=== PATIENT | male | born 1975 | race Caucasian/White ===

== ENCOUNTER → 2017-11-24 13:53 | Outpatient (CLI) | payer MEDICARE, MEDICAID, SELFPAY ==
--- NOTE | 2017-11-24 13:57 | EKG12_ITS ---
Test Reason : CP Blood Pressure : / mmHG Vent. Rate : 093 BPM Atrial Rate : 093 BPM P-R Int : 130 ms QRS Dur : 088 ms QT Int : 376 ms P-R-T Axes : 043 011 016 degrees QTc Int : 467 ms Normal sinus rhythm Normal ECG Confirmed by KATHERINE DARDEN, MATT ([id number]), magazine editor SEBASTIÁN CARRASCO ([id number]) on 12/02/2017 3:21:26 PM Referred By: Brian Rapp Confirmed By:MATT MURPHY MD
--- NOTE | 2017-11-24 13:57 | RAD_ITS ---
STUDY: X-RAY CHEST REASON FOR EXAM: Male, 42 years old. Cough. TECHNIQUE: PA and lateral views of the chest. COMPARISON: None. FINDINGS: The lungs are clear and expanded. There is no demonstrated pleural abnormality. Normal size heart. Normal mediastinum and buck. Normal visualized pulmonary arteries. There is atherosclerotic calcification of the aortic arch with tortuosity. Normal visualized thoracic spine. Normal visualized ribs, clavicles, and shoulders. There is no demonstrated abnormality of the visualized soft tissue structures of the upper abdomen. RAD/Chest PA and Lateral IMPRESSION: No acute cardiopulmonary disease. Electronically Signed: Ethan Wang DO at 16:23 EDT Tel [phone], Service support ,
== END ==
PROVIDERS: Family Provider Internal Medicine; PCP Internal Medicine; Visit Provider Nurse Practitioner Family
DX: R07.9 Chest pain, unspecified (principal); R05 Cough
CPT/HCPCS: 71046; 93005

== ENCOUNTER → 2018-07-20 11:01 | Outpatient (CLI) | payer MEDICARE, SELFPAY ==
[2018-07-20 11:23] VITALS: BMI 41.9
--- OUTSIDE RECORDS SUMMARY | 2018-09-25 06:57 | XMS RPT_ITS ---
:1975 Author Organization OHIP Care Team Providers Name Role Phone Mirella Rapp ENGINE DYNAMOMETER TESTER-C Attending Unavailable Oleghe, Efewongbe Referring Unavailable Rapp, Mirella ENGINE DYNAMOMETER TESTER-C Attending Unavailable Rapp, Mirella ENGINE DYNAMOMETER TESTER-C Referring Unavailable Oleghe, Efewongbe Primary Care Unavailable Oleghe, Efewongbe Attending Unavailable Oleghe, Efewongbe Referring Unavailable RappMirella ENGINE DYNAMOMETER TESTER-C Attending Unavailable Oleghe, Efewongbe Referring Unavailable Rapp, Mirella ENGINE DYNAMOMETER TESTER-C Attending Unavailable Oleghe, Efewongbe Referring Unavailable Rapp, Mirella ENGINE DYNAMOMETER TESTER-C Attending Unavailable Oleghe, Efewongbe Referring Unavailable Rapp, Mirella ENGINE DYNAMOMETER TESTER-C Attending Unavailable Rapp, Mirella ENGINE DYNAMOMETER TESTER-C Referring Unavailable Oleghe, Efewongbe Primary Care Unavailable Mirella Rapp ENGINE DYNAMOMETER TESTER-C Attending Unavailable Oleghe, Efewongbe Referring Unavailable Oleghe, Efewongbe Primary Care Unavailable Ignacio Murphy Attending Unavailable RappMirella beavers ENGINE DYNAMOMETER TESTER-C Referring Unavailable Sydney Loo Attending Unavailable Sydney Loo Referring Unavailable Annita Zheng Attending Unavailable PROBLEMS PROBLEMS DATE TYPE CONDITION / CODE ATTENDING STATUS SOURCE 07/20/2018 Unknown I10 - Essential Mirella Rapp Active [place] (primary) hypertension ENGINE DYNAMOMETER TESTER-C Community / I10(ICD-10) Hospital Repository 07/21/2018 Unknown J02.9 - Acute Rapp, Mirella Active [place] pharyngitis, ENGINE DYNAMOMETER TESTER-C Community unspecified / Hospital J02.9(ICD-10) Repository 02/15/2018 Unknown R07.9 - Chest pain, [place], Active [place] unspecified / Ignacio Community R07.9(ICD-10) Hospital Repository 11/24/2017 Unknown R05 - Cough / Rapp, Mirella Active [place] R05(ICD-10) [facility] 10/28/2017 Unknown K92.2 - Oleghe, Active [place] Gastrointestinal Efewongbe [facility] hemorrhage, Hospital unspecified / Repository K92.2(ICD-10) PROCEDURES PROCEDURES No Procedure Records FoundRESULTS RESULTS Observed: 07/21/2018 Status: F Source: [place] CULTURE, THROAT 11:16 AM [facility] HOSPITAL REPOSITORY Culture, Throat RESULTS CALLED TO MIRELLA RAPP/KATHI 07/26/18 0845 Aimee Hernandez. Copy of report sent to Infection Control Printer [id number] 07/26/18 0846 AYDEENNCATY. ORGANISM 1: Meth. resistant Staph. aureus Amount Growth 3+ Meth. resistant Staph. aureus: REACTION Cefoxitin *NF POS Doxycline <=0.5 S Daptomycin $$ 0.25 S Clindamycin $$ 0.25 S Inducable Clindamycin Resistan NEG Erythromycin $ >=8 R Gentamicin $ <=0.5 S Levofloxacin $ 0.25 S Linezolid $$$$ 2 S Moxifloxicin *NF <=0.25 S Oxacillin NF >=4 R Tigecycline $$$$ <=0.12 S Rifampin $$ <=0.5 S Tetracycline NF <=1 S Trimethoprim/Sulfametho $ <=10 S Vancomycin $ <=0.5 S (NF) indicates non-formulary drug at [facility]. Approval by Infectious Disease Specialist required before non-formulary drugs may be ordered and/or dispensed. * CLSI guidelines does not recommend testing of cephalosporins. This interpretation is deduced from Beta-lactam/penicillin results. Performed By: #### M100.1000 #### [facility] [address] [place], [address] INTERNAL MEDICINE Observed: 07/20/2018 Status: F Source: [place] OFFICE VISIT 2:42 PM [facility] REPOSITORY [facility] [address] [place] [address] [place] [address] OFFICE VISIT Date of Service: 07/20/18 MR#: [id number] Acct: [id number] Name: PHILOMENA CABRAL Rep #: [id number] : 1975 Provider: Mirella Rapp NP Age/Sex: 43/M Location: [facility] Status: Signed Intake Vital Signs07/20/18 Body Mass Index (BMI) 41.9 07/20/18 Height 5 ft 9 in 07/20/18 Weight: 267 lb 07/20/18 Body Mass Index (BMI) 39.4 07/20/18 Blood Pressure 154/113 H Intake Visit Reasons: sore throat Chief Complaint: Sore throat x 3 weeks Is patient in pain?: Yes (Sore throat) Pain scale (1-10): 5 Allergies No Known Allergies Allergy (Unverified 07/20/18 11:21) Medications lisinopril 40 mg tablet 40 mg PO QDAY #90 tab 06/25/18 [Rx Confirmed 07/20/18] omeprazole 40 mg capsule,delayed release 40 mg PO BID #60 cap 06/25/18 [Rx Confirmed 07/20/18] hydrochlorothiazide 25 mg tablet 25 mg PO DAILY #30 tab 07/20/18 [Rx Confirmed 07/20/18] lidocaine 2 % mucosal solution 15 ml MUCOUS MEMBRANE BID-QID PRN #100 ml 07/20/18 [Rx Confirmed 07/20/18] PFS Medical History GERD (gastroesophageal reflux disease) (Chronic) Anxiety (Chronic) Hypertension (Chronic) Surgical History History of shoulder surgery (Acute) History of umbilical hernia repair (Acute) History of vasectomy (Acute) Family History Mother Hypertension Grandfather Cancer Social History Smoking Status: Never smoker alcohol intake: current alcohol intake frequency: holidays/special occasions only substance use type: does not use what type of physical activity do you participate in: weight training frequency: 1-2 times per week HPI HPI Chief Complaint: Sore throat x 3 weeks Details: PHILOMENA CABRAL, is a 43 M who presents to the office today for an acute visit of sore throat times 3 weeks. He has a past medical history as listed above. The patient states that his sore throat has been going on for 3 weeks now and has been persisting. He went to an urgent care approximately 2 weeks ago and had a rapid strep test done which was negative. He has not tried any wazf-bnd-btjpyhb treatments at this time. He denies any obvious sick contacts and denies any other aggravating or relieving symptoms. He does note that he discontinued his hydrochlorothiazide as he ran out of the medication and that is why his blood pressure is elevated office today at 154/113. He denies any signs and symptoms of hypertension. The patient otherwise denies any fever, chills, nausea, vomiting, shortness of breath, chest pain or pressure, palpitations, orthopnea, lower extremity edema, syncope or presyncopal episodes. ROS Const Constitutional: No chills, fatigue, fever(s), frequent falls, malaise, weakness, sleep problems or change in appetite Eyes Eyes: No blurry vision, change in vision, double vision, discharge or visual disturbances ENT ENT: Positive for sore throat (x 3 weeks), difficulty swallowing, post nasal drip and hoarseness; no abnormal hearing, ear pain, ear pressure, tinnitus or dizziness/vertigo Resp Respiratory: Positive for cough (green) Cough: Yes productive; no shortness of breath or wheezing Cardio Cardiology: No chest pain at rest, chest pain with exertion, shortness of breath, dyspnea on exertion, generalized swelling, irregular heart rhythm, lightheadedness, orthopnea, fast heart rate or palpitations Gastro GI: Positive for difficulty swallowing; no abdominal pain, change in bowel habits, constipation, diarrhea, nausea/dyspepsia or vomiting Genitourinary Male: No difficulty urinating, burning urination, painful urination, urinary incontinence, urinary frequency, urinary urgency, urinary hesitancy, urinary retention, blood in urine, Frequent nighttime urination/ nocturia, sexual problems, testicle lump or testicle pain Musc Musculoskeletal: No joint pain, back pain, joint swelling, limited range of motion, numbness, tingling or muscle weakness Skin Skin: No change in skin color, itching, rash or wounds Breast Breast: No breast lump or breast pain Neuro Neurology: No frequent falls, weakness, visual disturbances, abnormal hearing, numbness, tingling, unsteady gait/balance, dizziness, loss of vision or memory loss Psych Psychiatric: No change in appetite, No memory loss, No anxiety, No depression, No Thoughts of harming yourself/Others Endo Endocrine: No fatigue, heat intolerance, increased thirst/drinking, increased hunger or increased urination Aller/Imm Allergy/Immunologic: No wheezing, itchy eyes or seasonal allergy symptoms Malvin/Lymp Hematologic/Lymphatic: No easy bleeding, easy bruising or enlarged lymph nodes Exam Const General: cooperative, comfortable, no acute distress Nutritional Appearance: average body habitus, well nourished Orientation: alert, oriented x3 Limitations: mental status not altered HENMT Head: normal to inspection Ears: hearing grossly normal bilaterally, TM's normal bilaterally Nose: external nose normal Face and sinus: normal facial exam Mouth: oral mucosae normal Teeth and gingiva: dentition normal Throat: posterior oropharynx normal, abnormal tonsil bilaterally (mildly) hypertrophy 1+ and erythema Neck Neck: no lymphadenopathy Resp Effort AND Inspection: normal respiratory effort, able to speak in complete sentences, normal respiratory pattern, symmetric chest movement, no audible wheezes, no cough Auscultation: Bilateral: Clear to Auscultation Cardio Palpation: normal PMI Rate: regular rate Heart Sounds: S1 normal, S2 normal, normal S1 and S2, no click, no gallops, no murmurs, no rubs Musc Musculoskeletal: No joint tenderness, decreased ROM or muscle weakness Skin General: no rashes or lesions noted, elasticity normal, turgor normal Lesions: no lesions Rashes: no rashes Neuro General: alert, awake, oriented x3, CN's II-XI intact bilaterally Speech: speech normal Gait: normal gait Motor: muscle tone normal throughout Extrem General: normal to inspection, normal gait, no edema, no pedal edema Psych Appearance: grossly normal Mental Status: mental status grossly normal Affect: normal affect Attitude: cooperative Thought Process: normal Assessment AND Plan 1. Acute pharyngitis J02.9 Plan Seems viral at this time. Rapid strep was done and is negative. Will send out backup throat culture for evaluation. Continue the treat can conservatively at this time with qffy-nhl-zpfveqe analgesics. Viscous lidocaine called in as well and patient advised on how to take the medication. Discussed red flag symptoms that require urgent medical attention. Patient verbalized understanding. Orders Orders: 2. HTN (hypertension) I10 Plan Hypertension: Blood pressure is suboptimal at this time. Will make changes to current medication regimen which include the addition of restarting the patient on hydrochlorothiazide, 25 mg is called to his pharmacy and he was instructed to take 1/2 tablet daily for 1 week and call us with a log of his blood pressures, if still elevated will have him take the full tablet daily. Repeat BMP in 2-week. Baseline labs reviewed. Educated patient on the potential side effects of the new medication and to keep a log of their blood pressures at home. Discussed risk factor reduction and lifestyle modifications. Discussed dietary changes that should be considered which include reducing the amount of sodium intake. Patient instructed to follow up in 4 weeks for hypertension follow up visit. Orders Orders: Plan Detail Other Medications New: Follow Up 4 weeks or sooner Coding Level of Care Code Off vis,est,level 3 Diagnoses Acute pharyngitis J02.9 HTN (hypertension) I10 07/20/18 1442 <Electronically signed by Mirella HADDAD> Date Mirella HADDAD Cosigner Signature: Date (if applicable) CC: INTERNAL MEDICINE Observed: 12/16/2017 Status: F Source: [place] OFFICE VISIT 8:[address] [facility] [address] [place] [address] OFFICE VISIT Date of Service: 12/15/17 MR#: [id number] Acct: [id number] Name: PHILOMENA CABRAL Rep #: [id number] : 1975 Provider: Mirella Rapp NP Age/Sex: 42/M Location: [facility] Status: Signed Intake Vital Signs12/15/17 Height 5 ft 9 in 12/15/17 Weight: 284 lb 12/15/17 Body Mass Index (BMI) 41.9 12/15/17 Blood Pressure 159/104 Intake Visit Reasons: worsening cough, BP Chief Complaint: Cough, HTN Is patient in pain?: Yes (stomach) Pain scale (1-10): 3 Allergies No Known Allergies Allergy (Unverified 12/15/17 17:42) Medications lisinopril 20 mg tablet 20 mg PO QDAY 10/28/17 [History Confirmed 12/15/17] omeprazole 40 mg capsule,delayed release 40 mg PO BID cap 10/28/17 [History Confirmed 12/15/17] blood pressure monitor kit See Dose Instructions .ROUTE .MEDSUPPLY #1 ea 11/24/17 [Rx Confirmed 11/24/17] albuterol sulfate HFA 90 mcg/actuation aerosol inhaler 2 puff INHALATION Q6H PRN #6.7 g 12/15/17 [Rx Confirmed 12/15/17] benzonatate 100 mg capsule 100 mg PO TID PRN #30 cap 12/15/17 [Rx Confirmed 12/15/17] codeine 10 mg-guaifenesin 100 mg/5 mL oral liquid See Label Instructions PO Q6H PRN #120 ml 12/15/17 [Rx Confirmed 12/15/17] hydrochlorothiazide 12.5 mg tablet 12.5 mg PO QAM #30 tab 12/15/17 [Rx Confirmed 12/15/17] PFSH Medical History GERD (gastroesophageal reflux disease) (Chronic) Anxiety (Chronic) Hypertension (Chronic) Surgical History History of shoulder surgery (Acute) History of umbilical hernia repair (Acute) History of vasectomy (Acute) Family History Mother Hypertension Grandfather Cancer Social History Smoking Status: Never smoker alcohol intake: current alcohol intake frequency: holidays/special occasions only substance use type: does not use what type of physical activity do you participate in: weight training frequency: 1-2 times per week HPI HPI Chief Complaint: Cough, HTN Details: PHILOMENA CABRAL, is a 42 M who presents to the office today for an acute visit of ongoing cough and high blood pressure readings at home. He has a past medical history as listed above. The patient was seen in the office previously in November for complaints of productive cough. He was having chest pain at that time as well. A EKG and chest x-ray was done which was negative. The patient states he continues to have a productive cough of green-yellow sputum. He completed the Augmentin that was given to him prior. He states the cough has been going on now for almost 2 months. He states he is unable to afford the owxd-ftq-apgsndu medication as prescribed M. He states that he coughs so much that at sometimes he feels like he could vomit. He does note he still has occasional chest pain with coughing. He denies any fever or chills. He does state that his blood pressure has been elevated at home with 160s-170 systolic over 100 diastolic. He has been on lisinopril for 2 years now and has tolerated it well. He denies any other aggravating or relieving symptoms. He otherwise denies any fever, chills, vomiting, shortness of breath, syncope or presyncopal episodes. ROS Const Constitutional: Positive for night sweats; no chills, fatigue, fever(s), frequent falls, malaise, weakness, sleep problems or change in appetite Eyes Eyes: No blurry vision, change in vision, double vision, discharge or visual disturbances ENT ENT: No abnormal hearing, ear pain, ear pressure, tinnitus or dizziness/vertigo Resp Respiratory: Positive for cough (Cough till dry heaves) Cough: Yes productive; no shortness of breath or wheezing Cardio Cardiology: Positive for shortness of breath; no chest pain at rest, chest pain with exertion, dyspnea on exertion, generalized swelling, irregular heart rhythm, lightheadedness, orthopnea, fast heart rate or palpitations Gastro GI: Positive for nausea/dyspepsia and vomiting; no abdominal pain, change in bowel habits, constipation or diarrhea Genitourinary Male: No difficulty urinating, burning urination, painful urination, urinary incontinence, urinary frequency, urinary urgency, urinary hesitancy, urinary retention, blood in urine, Frequent nighttime urination/ nocturia, sexual problems, testicle lump or testicle pain Musc Musculoskeletal: No joint pain, back pain, joint swelling, limited range of motion, muscle weakness, numbness or tingling Skin Skin: No change in skin color, itching, rash or wounds Breast Breast: No breast lump or breast pain Neuro Neurology: No frequent falls, weakness, abnormal hearing, numbness, tingling, unsteady gait/balance, dizziness, loss of vision, memory loss or visual disturbances Psych Psychiatric: No memory loss, No anxiety, No change in appetite, No depression, No Thoughts of harming yourself/Others Endo Endocrine: No fatigue, heat intolerance, increased thirst/drinking, increased hunger or increased urination Aller/Imm Allergy/Immunologic: No wheezing, itchy eyes or seasonal allergy symptoms Malvin/Lymp Hematologic/Lymphatic: No easy bleeding, easy bruising or enlarged lymph nodes Exam Const General: cooperative, comfortable, no acute distress Nutritional Appearance: average body habitus, well nourished Orientation: alert, oriented x3 Limitations: mental status not altered HENMT Head: normal to inspection Ears: hearing grossly normal bilaterally, TM abnormal with fluid behind the TM (clear) bilaterally Nose: mucous membranes and turbinates abnormal (edematous) Face and sinus: normal facial exam Mouth: oral mucosae normal Throat: posterior oropharynx normal Neck Neck: no lymphadenopathy Resp Effort AND Inspection: normal respiratory effort, able to speak in complete sentences, normal respiratory pattern, symmetric chest movement, no audible wheezes, cough (nonproductive) Auscultation: Bilateral: Clear to Auscultation Cardio Palpation: normal PMI Rate: regular rate Heart Sounds: S1 normal, S2 normal, normal S1 and S2, no click, no gallops, no murmurs, no rubs Musc Musculoskeletal: No muscle weakness Skin General: no rashes or lesions noted, elasticity normal, turgor normal Lesions: no lesions Rashes: no rashes Neuro General: alert, awake, oriented x3, CN's II-XI intact bilaterally Speech: speech normal Gait: normal gait Motor: muscle tone normal throughout Extrem General: normal to inspection, normal gait, no edema, no pedal edema Psych Appearance: grossly normal Mental Status: mental status grossly normal Affect: normal affect Attitude: cooperative Thought Process: normal Assessment AND Plan 1. HTN (hypertension) I10 Plan Hypertension: Blood pressure is suboptimal at this time. Will make changes to current medication regimen which include the addition of HCTZ 12.5 daily. Baseline labs reviewed. Educated patient on the potential side effects of the new medication and to keep a log of their blood pressures at home. Discussed risk factor reduction and lifestyle modifications. Discussed dietary changes that should be considered which include reducing the amount of sodium intake. Patient instructed to follow up in 2 weeks for hypertension follow up visit. Repeat BMP prior Orders Orders: 2. Acute bronchitis J20.9 Plan Patient does have symptoms consistent with that of acute bronchitis and post viral cough. Patient does appear to be improved since he was seen prior. His productive cough is his main complaint, lungs were clear to auscultation. Cheratussin AC ordered to be taken at night and Tessalon during the day for cough suppression. Pro-air was also given for any cough or wheezing as well. Patient also instructed to picker box operator an utyc-kqj-yzdtaoj antihistamine for his nasal symptoms. Patient verbalized understanding. Patient to follow-up in 2 weeks or sooner if needed. Discussed red flag symptoms that require urgent medical attention. Dragon disclaimer Plan Detail Other Medications New: albuterol sulfate HFA 90 mcg/actuation (ProAi2 puffs Inhalation Q6H PRN shortness of elly r HFA) administer with spacer th or wheezing Follow Up 2 weeks or sooner if needed Coding Level of Care Code Off vis,est,level 3 Diagnoses HTN (hypertension) I10 Acute bronchitis J20.9 12/16/17 0854 <Electronically signed by Mirella HADDAD> Date Mirella HADDAD Cosigner Signature: Date (if applicable) CC: 12 LEAD ELECTROCARDIOGRAM Observed: 12/02/2017 Status: F Source: [place] 3:21 PM [facility] REPOSITORY [facility] Cardiovascular Services [address] [place] [address] 12 Lead EKG 11/24/17 1416 MR#: [id number] Acct: [id number] Name: PHILOMENA CABRAL Rep #: [id number] : 1975 42 From: Ignacio Murphy MD Attending Dr: Mirella Rapp NP Status: REG CLI Ordering Dr: Mirella Rapp ENGINE DYNAMOMETER TESTER-C Date: 11/24/17 Location: [facility] Sex: M C Admitted: Test Reason : CP Blood Pressure : / mmHG Vent. Rate : 093 BPM Atrial Rate : 093 BPM P-R Int : 130 ms QRS Dur : 088 ms QT Int : 376 ms P-R-T Axes : 043 011 016 degrees QTc Int : 467 ms Normal sinus rhythm Normal ECG Confirmed by KATHERINE DARDEN, IGNACIO ([id number]), communications editor SEBASTIÁN CARRASCO ([id number]) on 12/02/2017 3:21:26 PM Referred By: Mirella Rapp Confirmed By:IGNACIO MURPHY MD 12/02/17 1521 Date Ignacio Murphy MD CC: Sydney Loo MD; Mirella Rapp NP Signed INTERNAL MEDICINE Observed: 11/25/2017 Status: F Source: [place] OFFICE VISIT 3:05 PM [facility] REPOSITORY [facility] [address] [place] [address] [place] [address] OFFICE VISIT Date of Service: 11/24/17 MR#: [id number] Acct: [id number] Name: PHILOMENA CABRAL Suni Rep #: [id number] : 1975 Provider: Mirella Rapp NP Age/Sex: 42/M Location: [facility] Status: Signed Intake Vital Signs11/24/17 Height 5 ft 9 in Intake Visit Reasons: 1 MO FU Chief Complaint: Cough, sweats Is patient in pain?: Yes (chest pressure) Pain scale (1-10): 6 Allergies No Known Allergies Allergy (Unverified 10/28/17 13:17) Medications lisinopril 20 mg tablet 20 mg PO QDAY 10/28/17 [History Confirmed 10/28/17] omeprazole 40 mg capsule,delayed release 40 mg PO BID cap 10/28/17 [History Confirmed 10/28/17] blood pressure monitor kit See Dose Instructions .ROUTE .MEDSUPPLY #1 ea 11/24/17 [Rx Confirmed 11/24/17] dextromethorphan-guaifenesin ER 60 mg-1,200 mg tab,extend release,12hr 1 tab PO Q12H #14 tab 11/24/17 [Rx Confirmed 11/24/17] fluticasone 50 mcg/actuation nasal spray,suspension 2 spray INTRANASAL QDAY #9.9 g 11/24/17 [Rx Confirmed 11/24/17] amoxicillin 875 mg-potassium clavulanate 125 mg tablet 1 tab PO BID #14 tab 11/25/17 [Rx] PFSH Medical History GERD (gastroesophageal reflux disease) (Chronic) Anxiety (Chronic) Hypertension (Chronic) Surgical History History of shoulder surgery (Acute) History of umbilical hernia repair (Acute) History of vasectomy (Acute) Family History Mother Hypertension Grandfather Cancer Social History Smoking Status: Never smoker alcohol intake: current alcohol intake frequency: holidays/special occasions only substance use type: does not use what type of physical activity do you participate in: weight training frequency: 1-2 times per week HPI HPI Chief Complaint: Cough, sweats Details: PHILOMENA CABRAL, is a 42 M who presents to the office today for an acute visit of cough and body aches 2 weeks. He has a past medical history as listed above. The patient states that he has been complaining a cough that is productive of yellow sputum, nasal drainage and sinus pressure, chest heaviness, increase in sweats, fatigue, and body aches 2 weeks now. He states that his symptoms are persistent. He states that the chest heaviness as a constant dull pressure and that it is not worsened with activity. He denies any sick contacts at this time. He has not tried any faup-tvv-xdvbfnb treatments at this time. He is concerned that he may be developing pneumonia. His blood pressure was elevated today in the office. He states that he continues to take his lisinopril appropriately, however he states that he does get white coat syndrome. He states that when he checked his blood pressure at home after his previous office appointment in the 120s over 80s. He does not have a BP cuff that he can routinely check his blood pressure for at home. He otherwise denies any fever, chills, nausea, vomiting, shortness of breath, syncope or presyncopal episodes. ROS Const Constitutional: Positive for body ache, chills, fatigue and excessive sweating; no weight change, sleep problems, change in appetite, snoring, weakness, frequent falls or headache(s) Eyes Eyes: No change in vision, eye pain, light sensitivity or blurry vision ENT ENT: No headache(s), abnormal hearing, ear pain, tinnitus, nasal congestion, sore throat or neck pain Resp Respiratory: Positive for cough Cough: Yes productive and shortness of breath (slight); no snoring or wheezing Cardio Cardiology: Positive for excessive sweating and chest pain at rest (pressure, feels heavy); no chest pain with exertion, shortness of breath, dyspnea on exertion, palpitations, orthopnea or lightheadedness Gastro GI: No abdominal pain, change in bowel habits, constipation, diarrhea, vomiting, nausea/dyspepsia or cramping Genitourinary Male: No painful urination, urinary incontinence, urinary frequency, urinary urgency, blood in urine, testicle pain or other Musc Musculoskeletal: No neck pain, abnormal walking, joint pain, back pain, limited range of motion, numbness or tingling Skin Skin: No redness, dry skin, itching, lesions, wounds or rash Neuro Neurology: No weakness, frequent falls, headache(s), abnormal hearing, abnormal walking, numbness, tingling, abnormal speech, dizziness or memory loss Psych Psychiatric: No change in appetite, No memory loss, No anxiety, No depression, No Thoughts of harming yourself/Others Endo Endocrine: Positive for fatigue and excessive sweating; no cold intolerance, increased thirst/drinking, heat intolerance, flushing or increased hunger Aller/Imm Allergy/Immunologic: No wheezing, itchy eyes, hives or seasonal allergy symptoms Malvin/Lymp Hematologic/Lymphatic: No easy bleeding, easy bruising or enlarged lymph nodes Exam Const General: cooperative, comfortable, ill appearing acutely Nutritional Appearance: average body habitus, well nourished Orientation: alert, oriented x3 Limitations: mental status not altered Other: diaphoretic HENMT Head: normal to inspection Ears: TM abnormal with fluid behind the TM (clear) bilaterally Nose: mucous membranes and turbinates abnormal (edematous), nasal discharge clear bilaterally Face and sinus: tenderness bilaterally maxilla Throat: posterior oropharynx normal Neck Neck: normal visual inspection, no lymphadenopathy Chest Chest palpation AND inspection: normal inspection of the chest, normal palpation of entire chest wall Resp Effort AND Inspection: normal respiratory effort, able to speak in complete sentences, normal respiratory pattern, symmetric chest movement, no audible wheezes, no cough Auscultation: Bilateral: Clear to Auscultation Cardio Palpation: normal PMI Rate: regular rate Heart Sounds: S1 normal, S2 normal, normal S1 and S2, no click, no gallops, no murmurs, no rubs Skin General: no rashes or lesions noted, elasticity normal, turgor normal Lesions: no lesions Rashes: no rashes Neuro General: alert, awake, oriented x3, CN's II-XI intact bilaterally Speech: speech normal Gait: normal gait Motor: muscle tone normal throughout Extrem General: normal to inspection, normal gait, no edema, no pedal edema Psych Appearance: grossly normal Mental Status: mental status grossly normal Affect: normal affect Attitude: cooperative Thought Process: normal Assessment AND Plan 1. Acute maxillary sinusitis J01.00 Plan Patient's symptoms are consistent with that of acute maxillary sinusitis with upper respiratory symptoms as well. Given his increasing diaphoresis and has concern for pneumonia, will check an x-ray of his chest to rule out pneumonia. Will treat with Augmentin twice daily 7 days. Also discussed the use of Mucinex DM and Flonase to help with his respiratory symptoms as well. 2. Chest pain R07.9 Plan Low suspicion for cardiac etiology, however given his complaints will check a EKG to rule out cardiac etiology at this time. Discussed with patient that if his chest heaviness which is nonexertional worsens and he needs to seek emergent medical attention at the emergency department. Chest x-ray was reviewed and was negative, EKG was negative for acute changes at this time. Orders Orders: 3. HTN (hypertension) I10 Plan Hypertension: Blood pressure is suboptimal at this time.. Prescription given for home blood pressure cuff to check his blood pressure at home and to call us with a weeks worth of his medication log. Discussed signs of worsening hypertension that require urgent medical attention. A repeat manual BP was still elevated at 158/106. Discussed risk factor reduction and lifestyle modifications. Discussed dietary changes that should be considered which include reducing the amount of sodium intake. Patient instructed to follow up in 4 weeks for hypertension follow up visit, if still elevated at that time may need to increase his lisinopril or add HCTZ. This note was generated with [employer] software. It may contain incorrect words, spelling, and punctuation that were not noted in checking the note before signing. . Plan Detail Other Orders Orders: Other Medications New: blood pressure monitor kit (Blood Pressure KiCheck blood pressure daily for hypertension I t) 10 Follow Up 4 weeks or sooner if needed Coding Level of Care Code Off vis,est,level 4 Diagnoses Acute maxillary sinusitis J01.00 Chest pain R07.9 HTN (hypertension) I10 11/25/17 1505 <Electronically signed by Mirella HADDAD> Date Mirella HADDAD Cosigner Signature: Date (if applicable) CC: CHEST PA AND LATERAL Observed: 11/24/2017 Status: F Source: [place] 1:57 PM [facility] REPOSITORY [facility] Imaging Services [address] [place] [id number] Chest PA and Lateral MR#: [id number] Acct: [id number] Name: PHILOMENA CABRAL Rep #: [id number] : 1975 M 42 From: Ethan Wang DO PCP: Sydney Loo MD Status: REG CLI Study: Chest PA and Lateral Date of Exam: 11/24/17 Exam# [id number] Ordering Dr: Mirella Rapp STUDY: X-RAY CHEST REASON FOR EXAM: Male, 42 years old. Cough. TECHNIQUE: PA and lateral views of the chest. COMPARISON: None. FINDINGS: The lungs are clear and expanded. There is no demonstrated pleural abnormality. Normal size heart. Normal mediastinum and buck. Normal visualized pulmonary arteries. There is atherosclerotic calcification of the aortic arch with tortuosity. Normal visualized thoracic spine. Normal visualized ribs, clavicles, and shoulders. There is no demonstrated abnormality of the visualized soft tissue structures of the upper abdomen. RAD/Chest PA and Lateral IMPRESSION: No acute cardiopulmonary disease. Electronically Signed: Ethan Wang DO at 16:23 EDT Tel [phone], Service support , CC: Sydney Loo MD; Mirella Rapp NP Bit Gatherer: Signed INTERNAL MEDICINE Observed: 10/30/2017 Status: F Source: [facility] OFFICE VISIT 9:[address] [facility] [address] [place] [address] [place] [address] OFFICE VISIT Date of Service: 10/28/17 MR#: [id number] Acct: [id number] Name: PHILOMENA CABRAL Rep #: [id number] : 1975 Provider: Sydney Loo MD Age/Sex: 42/M Location: [facility] Status: Signed Intake Vital Signs10/28/17 Height 5 ft 9 in 10/28/17 Weight: 290 lb 10/28/17 Body Mass Index (BMI) 42.8 10/28/17 Blood Pressure 152/106 10/28/17 Blood Pressure Location Lt brachial Intake Visit Reasons: NEW TO AREA/BLOOD IN STOOLS Chief Complaint: Est PCP - Blood in stool Is patient in pain?: Yes (Stomach pain) Pain scale (1-10): 2 Allergies No Known Allergies Allergy (Unverified 10/28/17 13:17) Medications lisinopril 20 mg tablet 20 mg PO QDAY 10/28/17 [History Confirmed 10/28/17] omeprazole 40 mg capsule,delayed release 40 mg PO BID cap 10/28/17 [History Confirmed 10/28/17] PFSH Medical History GERD (gastroesophageal reflux disease) (Chronic) Anxiety (Chronic) Hypertension (Chronic) Surgical History History of shoulder surgery (Acute) History of umbilical hernia repair (Acute) History of vasectomy (Acute) Family History Mother Hypertension Grandfather Cancer Social History Smoking Status: Never smoker alcohol intake: current alcohol intake frequency: holidays/special occasions only substance use type: does not use what type of physical activity do you participate in: weight training frequency: 1-2 times per week HPI HPI Chief Complaint: Est PCP - Blood in stool Details: PHILOMENA CABRAL, is a 42yo M who presents to the office today to establish care. He has past medical history of hypertension, mood disorders and GERD. He reports bright red blood per rectum which is been going on for over a year. There is associated history of abdominal pain which is said to be constant with waxing and waning episodes. He denies any known precipitating aggravating or relieving factors. Bleeding episode susceptible core pretty much every other week. He states this is had several recent life stresses and has not had this checked since its onset. There is no known family history of inflammatory bowel disease or colon cancer. He denies tobacco or substance abuse. ROS Const Constitutional: Positive for fatigue and sleep problems; no chills, fever(s), frequent falls, malaise, weakness or change in appetite Eyes Eyes: No blurry vision, change in vision, double vision, discharge or visual disturbances ENT ENT: No abnormal hearing, ear pain, ear pressure, tinnitus or dizziness/vertigo Resp Respiratory: No cough, shortness of breath or wheezing Cardio Cardiology: No chest pain at rest, chest pain with exertion, shortness of breath, dyspnea on exertion, generalized swelling, irregular heart rhythm, lightheadedness, orthopnea, fast heart rate or palpitations Gastro GI: Positive for diarrhea, heartburn and blood in stool; no abdominal pain, change in bowel habits, constipation, nausea/dyspepsia or vomiting Genitourinary Male: No difficulty urinating, burning urination, painful urination, urinary incontinence, urinary frequency, urinary urgency, urinary hesitancy, urinary retention, blood in urine, Frequent nighttime urination/ nocturia, sexual problems, testicle lump or testicle pain Musc Musculoskeletal: No joint pain, joint swelling, limited range of motion, muscle weakness, numbness or tingling Skin Skin: No change in skin color, itching or wounds Breast Breast: No breast lump or breast pain Neuro Neurology: No frequent falls, weakness, abnormal hearing, numbness, tingling, unsteady gait/balance, dizziness, loss of vision, memory loss or visual disturbances Psych Psychiatric: No memory loss, Positive for anxiety, No change in appetite, Positive for depression, No Thoughts of harming yourself/Others Endo Endocrine: Positive for fatigue; no heat intolerance, increased thirst/drinking, increased hunger or increased urination Aller/Imm Allergy/Immunologic: No wheezing, itchy eyes or seasonal allergy symptoms Malvin/Lymp Hematologic/Lymphatic: No easy bleeding, easy bruising or enlarged lymph nodes Exam Const General: cooperative, no acute distress Orientation: alert, awake, oriented x3 HENMT Head: atraumatic, normocephalic, normal to inspection Ears: hearing grossly normal bilaterally Resp Effort AND Inspection: normal respiratory effort, able to speak in complete sentences Auscultation: Bilateral: Clear to Auscultation Cardio Rate: regular rate Rhythm: regular rhythm Heart Sounds: S1 normal, S2 normal GI Inspection: obesity Palpation: soft (Non tender), no hepatosplenomegaly Musc Musculoskeletal: No muscle weakness Neuro General: alert, awake, oriented x3, moves all extremities, CN's II-XI intact bilaterally Extrem General: no clubbing, cyanosis or edema Psych Appearance: grossly normal Mental Status: mental status grossly normal Mood: congruent mood Affect: normal affect Assessment AND Plan 1. Lower GI bleed K92.2 Plan Symptoms ongoing for over a year. Prior to increase intensity about a year ago he had minimal occasional episodes. Described as bright red blood per rectum. Occasionally associated with pain. No known history of inflammatory bowel disease. Patient states that had a colonoscopy several years ago but cannot remember the findings. Also reports a history of mild hemorrhoids. He declines a rectal examination at this time. Referred to Dr. Singer. CBC and CMP also ordered. Follow-up in 1 month. Orders Orders: Referrals: 2. Hypertension I10 Plan Elevated in office today. Patient is currently on lisinopril 20 mg daily. He states variations in his blood pressure and per patient it is typically high at his doctor's visits. Advised to keep a blood pressure log and call the office on Thursday with the numbers. Will possibly adjust his medications if needed. Lifestyle modifications also recommended for now. 3. Hypersomnolence G47.10 Plan Ongoing history of poor sleep, hypersomnolence and fatigue with associated daytime. Had been recommended for sleep study however patient was lost to follow-up. Will subsequently refer for sleep study. This note was generated with [employer] software. It may contain incorrect words, spelling, and punctuation that were not noted in checking the note before signing. Plan Detail Follow Up 1 Month Coding Level of Care Code Off vis,new,level 4 Diagnoses Lower GI bleed K92.2 Hypertension I10 Hypersomnolence G47.10 10/30/17 0943 <Electronically signed by Sydney Loo MD> Date Sydney Loo MD Cosigner Signature: Date (if applicable) CC: ALLERGIES ALLERGIES DATE TYPE / CODE NAME / CODE REACTION SEVERITY SOURCE 07/20/2018 Drug No Known Unknown [facility] Allergy/4160 Allergies/F00 [facility] [address]955(SNOMED [id number](RXNOR Repository CT) M) ENCOUNTERS ENCOUNTERS ADMIT/DISCHARGE ACCOUNT ADMITTING ENCOUNTER LOCATION SOURCE NUMBER CLASS 07/30/2018/ [id number] Ambulatory BMSBuilding:B [place] 9 5 [place] Repository 07/20/2018/ [id number] Ambulatory BMSBuilding:B [place] 9 8 [place] Repository 07/20/2018 [id number] Ambulatory [place] 1 [facility] Hospital ing:[facility] Repository 01/07/2018 [id number] Ambulatory BMSBuilding:B [place] 1 [place] Repository 01/07/2018 [id number] Ambulatory BMSBuilding:B [place] 2 [place] Repository 12/15/2017/ [id number] Ambulatory BMSBuilding:B [place] 8 4 [place] Repository 11/25/2017 [id number] Ambulatory BMSBuilding:B [place] 8 [place] Repository 11/24/2017 [id number] Ambulatory [place] 8 [facility] ing:RAD Repository 11/24/2017 [id number] Ambulatory BMSBuilding:W [place] 9 [facility] Repository 11/24/2017/ [id number] Ambulatory BMSBuilding:B [place] 8 5 [place] Repository 10/28/2017/ [id number] Ambulatory BMSBuilding:B [place] 8 5 [place] Repository PAYERS PAYERS ENCOUNTER GUARANTOR PAYER SUBSCRIBER SOURCE 07/30/2018 PHILOMENA Culp Primary PHILOMENA Islas [id number] [address] Insurance:MEDICARE FONTEDOB: [facility] [id number] Hospital 66354Giu: 330) Number: Repository [phone] () [id number] Date:2018-07-30 07/30/2018 Secondary NOT GIVENUNK [place] Insurance:SELF PAY [facility] Number: Effective Repository Date:2018-07-30 07/20/2018 PHILOMENA R Primary PHILOMENA R [place] [id number] Insurance:MEDICARE FONTEDOB: [facility] [id number] Number: Repository [id number]: 330 [id number] [phone] () Date:2018-07-20 07/20/2018 Secondary NOT GIVENUNK [place] Insurance:SELF PAY [facility] Number: Effective Repository Date:2018-07-20 07/20/2018 PHILOMENA R Primary PHILOMENA R [place] [id number] [address] Insurance:MEDICARE FONTEDOB: [facility] [id number] Hospital [address]Nnk: (330) Number: Repository [phone] () [id number] Date:2018-07-20 07/20/2018 Secondary NOT GIVENUNK [place] Insurance:SELF PAY [facility] Number: Effective Repository Date:2018-07-20 01/07/2018 PHILOMENA R Primary PHILOMENA R [place] [id number] [address] HIGH Insurance:MEDICARE FONTEDOB: [place] PART A [facility] [id number] Hospital [address]Dbn: (330) Number: Repository [phone] () [id number] Date:2018-01-07 01/07/2018 Secondary NOT GIVENUNK [place] Insurance:SELF PAY [facility] Number: Effective Repository Date:2018-01-07 01/07/2018 PHILOMENA R Primary PHILOMENA R [place] [id number] [address]IGH Insurance:MEDICARE FONTEDOB: [place] PART A [facility] [id number] Hospital 164[address]Bqu: (330) Number: Repository [phone] () [id number] Date:2017-12-15 01/07/2018 Secondary NOT GIVENUNK [place] Insurance:SELF PAY [facility] Number: Effective Repository Date:2017-12-15 12/15/2017 PHILOMENA R Primary PHILOMENA R [place] [id number] [address] HIGH Insurance:MEDICARE FONTEDOB: [place] PART A [facility] [id number] Hospital [address]Ixu: (330) Number: Repository [phone] () [id number] Date:2017-12-15 12/15/2017 Secondary NOT GIVENUNK [place] Insurance:SELF PAY [facility] Number: Effective Repository Date:2017-12-15 11/25/2017 PHILOMENA R Primary PHILOMENA R [place] [id number] W HIGH Insurance:MEDICARE FONTEDOB: [place] PART A [facility] [id number] Hospital [address]Wgi: (330) Number: Repository [phone] () [id number] Date:2017-10-28 11/25/2017 Secondary NOT GIVENUNK [place] Insurance:SELF PAY [facility] Number: Effective Repository Date:2017-10-28 11/24/2017 PHILOMENA R Primary PHILOMENA R [place] [id number] W HIGH Insurance:MEDICARE FONTEDOB: [place] PART A [facility] [id number] Hospital [address]Zec: (330) Number: Repository [phone] () [id number] Date:2017-11-24 11/24/2017 Secondary PHILOMENA R [place] Insurance:MEDICAIDPol FONTEDOB: [facility] icy Number: Effective [id number] Date:2017-11-24 Repository 11/24/2017 Tertiary NOT GIVENUNK [place] Insurance:SELF PAY [facility] Number: Effective Repository Date:2017-11-24 11/24/2017 PHILOMENA R Primary PHILOMENA R [place] [id number] W HIGH Insurance:MEDICARE FONTEDOB: [place] PART [place] [facility] [id number] Hospital [address]Hag: (330) Number: Repository [phone] () [id number] Date:2017-11-24 11/24/2017 Secondary PHILOMENA R [place] Insurance:MEDICAIDPol FONTEDOB: [facility] ic Number: Effective [id number] Hospital Date:2017-11-24 Repository 11/24/2017 Tertiary NOT GIVENUNK [place] Insurance:SELF PAY [facility] Number: Effective Repository Date:2017-11-24 11/24/2017 PHILOMENA R Primary PHILOMENA R [place] [id number] [address] HIGH Insurance:MEDICARE FONTEDOB: [place] PART [place] [facility] [id number] Hospital [address]Esi: (330) Number: Repository [phone] () [id number] Date:2017-11-23 11/24/2017 Secondary NOT GIVENUNK [place] Insurance:SELF PAY [facility] Number: Effective Repository Date:2017-11-24 10/28/2017 PHILOMENA R Primary PHILOMENA R [place] [id number] [address] Insurance:MEDICARE FONTEDOB: [place] PART [place] [facility] [id number] Hospital [address]Ozv: (330) Number: Repository [phone] () [id number] Date:2017-10-27 10/28/2017 Secondary NOT GIVENUNK [place] Insurance:SELF PAY [facility] Number: Effective Repository Date:2017-10-28
== END ==
PROVIDERS: Family Provider Internal Medicine; PCP Internal Medicine; Referring Provider Nurse Practitioner Family; Visit Provider Nurse Practitioner Family
DX: J02.9 Acute pharyngitis, unspecified (principal)
CPT/HCPCS: 87070; 87077; 87186

== ENCOUNTER 2018-08-23 08:58 | Outpatient (RCR) | payer MEDICARE, MEDICAID, SELFPAY ==
[2018-08-17 11:38] VITALS: BMI 41.9
--- NOTE | 2018-08-23 10:20 | BH.SGPN.GN ---
Behaviors/Verbalizations/Mental Status: []Client alert and oriented, casually dressed. Eye contact good. Motor activity appropriate. Speech within normal limits, but quiet. Affect constricted, mood anxious. Thoughts linear, logical, no signs of hallucinations or delusions. Client Response/Progress/Benefit: []Client responded well to session, quiet, but occasionally provided insight. Client nodded that ineffective communication can negatively impact mental health and relationships. Client stated effective communication is important for mental health progress because it can reduce physical and mental symptoms. Client shared over the weekend he had a moment of ?mental clarity? and he realized that he needs to slow down and be deliberant, which relates to his communication as well. Client helped the group discuss the different communication styles including the payoffs and costs of each. Client reported there are some people in his life who are aggressive and ?it?s just physically and mentally taxing.? Client shared he uses all the communication types except aggressive. Client agreed with peers that one?s needs do not get met long-term without assertive, open communication. Client appeared to benefit from increasing awareness of how communication impacts mental health. Client?s first day in IOP. Client to continue IOP to prevent decompensation and reinforce healthy coping skills to promote mood stability.
--- NOTE | 2018-08-23 11:26 | BH.SGPN.GN ---
Behaviors/Verbalizations/Mental Status: [Client alert and oriented, casual appearance. Eye contact good. Motor activity appropriate. Speech within normal limits. Affect congruent, mood euthymic, anxious. Thoughts linear, logical, no signs of hallucinations or delusions.] Client Response/Progress/Benefit: [Client semi-active participant AEB providing some contributions and listening throughout. Group worked to further review individual communication style and how that impacts mental health. Client took a passive but attentive role during the activity that encouraged clients to practice clear, specific communication. Client shared it was helpful when the group gave alternative explanations during the activity. Group identified strategies that helped the group communicate more effectively during the activity. Client identified personal communication goal which is to practice being more consistent with communicating his thoughts and feelings with supports. Client seemed to benefit from increased insight into how communication style impacts mental health and identifying strategies for increasing effective communication skills. Progress noted as client reports increased engagement, though appears to struggle with internalizing skills learned. Will continue IOP tx to prevent decompensation, improve mood stability, and promote consistent use of coping skills.] Narrative Note: []
--- NOTE | 2018-08-25 09:15 | BH.SGPN.GN ---
Behaviors/Verbalizations/Mental Status: [Eye contact is good. Motor activity is appropriate. Appearance is casual, grooming appropriate. Speech is Appropriate rate and tone. Mood is euthymic, agitated. Affect is congruent. Thoughts are linear and logical. No evidence of psychosis. Reviewed daily check in sheet and pt denies any active SI, plan, or intent as of this date.]] Client Response/Progress/Benefit: [Pt responded well to session, engaged throughout and open to processing with the group. Pt indicated current emotion as ?a mix of frustration and peacefulness? and discussed that this has been due to the frustration and relief that comes with receiving a mental health diagnosis. Shared that it is relieving as he now has more understanding of his symptoms and behaviors leading to treatment. Shared frustration as he does not feel she needs psychiatric medication to stabilize his mood. Struggled with looking at potential benefits of medication. Pt indicated that writing and video journaling has been effective in maintaining calm and regulated. Discussed connecting with fellow participants and appeared to benefit from the support and structure of group environment. Pt recommended continued IOP tx to prevent decompensation, promote ongoing application of healthy coping skills, and further reduce mental health sx.] Narrative Note: []
--- NOTE | 2018-08-25 10:20 | BH.SGPN.GN ---
Behaviors/Verbalizations/Mental Status: []Client alert and oriented, casually dressed, hygiene good. Eye contact good. Motor activity appropriate. Speech within normal limits. Affect full, mood euthymic. Thoughts linear, logical, no signs of hallucinations or delusions. Client Response/Progress/Benefit: []Client responded well to session, engaged in activity and positive contributions. Client connected with the quote and shared ?you have to take baby steps? when working towards goals and to set short-term goals. Client shared if a person only focuses on long-term goals ?it will be easier to give up.? Client reported setting goals can benefit mental health because it can ?help us slow down and celebrate,? increase motivation, and create happiness. Client shared barriers such as external events, fear, and poor emotional regulation can hinder one?s ability to accomplish goals. Client helped the group define SMART goals and shared it is important for him to ask himself ?will this be important next week.? Client participated in the group activity and shared at first the group struggle with being confident, but then was successfully from setting realistic goals and communicating. Client appeared to benefit from learning about SMART goals and practicing setting smart goals. Progress limited as it is client?s second IOP day. Client to continue IOP to prevent decompensation and increase mood stability.
--- NOTE | 2018-08-25 11:20 | BH.SGPN.GN ---
Behaviors/Verbalizations/Mental Status: []Client alert and oriented, casually dressed, hygiene good. Eye contact intense. Motor activity appropriate. Speech normal tone, more talkative and goal driven. Affect full, mood euphoric-potential signs of shawn. Thoughts linear, logical, no signs of hallucinations or delusions. Client Response/Progress/Benefit: []Client responded well to session, active participant. Client shared his goal in life lately in to ?slow down? but client had a hard time coming up with a SMART goal. After receiving help from therapist, client identified his SMART goal as writing out two tasks every day he wants to accomplish. Client shared accomplishing this goal would help client ?live life a quarter mile at a time? and learn to be more deliberant with his actions. Client?s barriers included: ?a lifetime of doing things this way,? unfinished projects, flight of ideas, speaking and acting too quickly. Client able to identify solutions to barriers such as: being aware of warning signs and practicing mindfulness. Client shared connecting with others and listening to different perspectives will also help client slow down. Client appeared to benefit from identifying a SMART goal as well as identifying solutions to barriers. Progress limited as it is client?s second day in IOP. Client appears to be portraying some manic symptoms and can benefit from IOP to prevent decompensation and increase mood stability.
--- NOTE | 2018-08-26 10:10 | BH.SGPN.GN ---
Behaviors/Verbalizations/Mental Status: []Client alert and oriented, casually dressed, hygiene good. Eye contact good. Motor activity appropriate. Speech tangential, focused on topic of luis eduardo. Affect congruent, mood euthymic. Thoughts linear, logical, no signs of hallucinations or delusions. Client Response/Progress/Benefit: []Client responded well to session, off topic at times, but engaged. Client connected with the quote and shared it is important to have internal and external support networks. Client reported social support can also be a higher power ?or whatever you believe in.? Client agreed with peers that having social support is important for increasing mental wellness and making progress. Client shared barriers to seeking support can include judgment and fear. Client identified benefits of social support to be guidance and someone to listen. Client was engaged during the group activity. Client was able to recognize that for the group to be successful the group had to communicate and work to keep the balance. The group recognized that to be ?balanced? with support in their lives, it is important to have healthy supports and clear expectations. Client appeared to benefit from gaining awareness of the positives social supports can provide. Progress limited as client continues to struggle with mood instability and limited insight to warning signs.
--- NOTE | 2018-08-26 11:15 | BH.SGPN.GN ---
Behaviors/Verbalizations/Mental Status: [Pt eye contact good, casually dressed, motor activity restless shifting in chair or looking at clock, speech normal rate and tone, mood anxious and irritable, affect incongruent w/mood AEB client smiling while expressing agitation and impatience, thoughts linear and intact, no evidence of delusions or hallucinations.] Client Response/Progress/Benefit: [Client receptive of session, provides some input to discussion however, mostly taking on an observational role maintaining eye contact and nodding throughout. Client worked with the group to make connections between barriers and supports in the challenge with utilizing social supports in daily life. Shared connection between need to take the activity slowly and maintain focused with need for patience in relation to using supports. Client indicated connecting to the personal barriers discussed by the group in using supports. Client contributed minimally and appeared distracted by the time throughout discussion about the different types of support and benefits different types of support can provide. Client difficulties in focus may can prevented ability to retain all of information discussed during session and could impact ability to make progress. Client seemed to benefit from challenging self to use regulation and coping skills to remain calm despite anxiety and difficulties in focusing. Client to continue IOP level of care to prevent decompensation, as well as increase healthy coping and emotion regulation skills.] ] Narrative Note: []
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
--- NOTE | 2018-08-27 15:04 | BH.DR.ITP ---
Initial Treatment Plan - Patient Information Visit Information: ADMISSION DATE: 08/23/18 EXPECTED LOS: 4-6 weeks Diagnoses:: Bipolar disorder; anxiety disorder unspecified; alcohol use disorder - Problems/Symptoms Problem #1:: bipolar disorder Symptom:: adventism preoccupation; elevated mood; high energy Problem #2:: anxiety Symptom:: gets panicky going into stores, other crowded places Problem #3:: alcohol use disorder Symptom:: drinks excessively
--- NOTE | 2018-08-27 15:09 | BH.PSY.EVA_ITS ---
Initial Treatment Plan - Patient Information Visit Information: ADMISSION DATE: 08/23/18 EXPECTED LOS: 4-6 weeks Diagnoses:: Bipolar disorder; anxiety disorder unspecified; alcohol use disorder - Problems/Symptoms Problem #1:: bipolar disorder Symptom:: christian preoccupation; elevated mood; high energy Problem #2:: anxiety Symptom:: gets panicky going into stores, other crowded places Problem #3:: alcohol use disorder Symptom:: drinks excessively
--- NOTE | 2018-08-30 10:07 | BH.COMM ---
Communication Note - Communication with Client Communication Note: Pt reports that he was admitted to [facility] due to medical issues. Pt reports low sodium which was causing vision issues and twitching. He expects to be discharged today however will keep us up to date.
--- NOTE | 2018-08-30 11:46 | BH.COMM ---
Communication Note - Communication with Client Communication Note: IOP therapist planned to meet with patient to identify treatment goals for IOP, however pt is in hospital so will not be attending program today. Rescheduled individual session for 09/02/18.
--- NOTE | 2018-09-01 09:03 | BH.SGPN.GN ---
Behaviors/Verbalizations/Mental Status: []Client alert and oriented, casually dressed, hygiene good. Eye contact good. Motor activity appropriate. Speech rapid, tangential. Affect bright, mood euthymic. Thoughts linear, logical, no signs of hallucinations or delusions. Reviewed client?s symptom tracker, no risk for suicidal ideation, plan, or intent as of 09/01/18. Client Response/Progress/Benefit: []Client responded somewhat well to session, appeared to be listening to others, but tangential during check in. Client reports feeling ?tranquil? today as client feels ?ceferino to be alive.? Client shared that he was recently admitted into the hospital due to very low sodium levels. Client acknowledges that his recent cleanse of a liquid only diet contributing to his sodium levels decreasing. Client shared if he would not have been convinced by his family to go to the hospital ?I?d probably be in a coma or .? Client?s mental health positives include being stable after his medical scare and having an appointment with his PCP this afternoon. Client was encouraged to share his recent experience with his PCP and to request a plan of care regarding diet moving forward. Client appeared to benefit from processing his recent stressor. Limited progress at this time. Client to continue IOP to prevent decompensation, monitor medications, and increase mood stability.
--- NOTE | 2018-09-01 10:27 | BH.SGPN.GN ---
Behaviors/Verbalizations/Mental Status: [Client eye contact good, grooming and attire casual and neat, motor activity appropriate, speech normal rate and tone, mood euthymic and anxious, congruent affect, thoughts linear and intact, no evidence of delusions or hallucinations] Client Response/Progress/Benefit: [Client receptive of session, attentive to discussion and provided input throughout. Client reflected upon the quote and indicated that he agrees with the idea that we have the power to choose how we react to things but noted struggling to believe this is always a choice. Went on to share that sometimes we are not in control of what happens however willing to accept that he can choose his response most of the time. Client appeared to benefit from group discussion regarding what barriers impact ability to ?choose a different path? and make healthier choices. Client reflected that not wanting to accept the need for change as a barrier and provided the example of not wanting to accept he needed help in managing his mental health. Connected with the ?Chapters of My Life? pobrianna and worked with the group to analyze how various chapters described related to accepting personal role in making positive mental health changes. Client identified that personally connecting with chapter 3 as representing his life before IOP tx. Further explained he could see the unhealthy behaviors he was engaging in but was not ready to do anything about them yet. Progress in client ability to connect materials to own mental health. Recommended continued tx to promote healthy decision making, provide psychoeducation, improves management, and prevent decompensating.]] Narrative Note: []
--- NOTE | 2018-09-01 11:25 | BH.SGPN.GN ---
Behaviors/Verbalizations/Mental Status: [] Eye contact is good. Motor activity is appropriate. Appearance is casual. Speech is pressured. Mood is euthymic. Affect is labile. No evidence of psychosis.Hypomanic. Grandiose thinking. Client Response/Progress/Benefit: [] Pt was an active participant in group discussion and activity. Worked within small group to complete WDEP worksheet. In reviewing worksheet it is difficult to follow pt's logic. Writing is off topic at times. Identified want or goal as I'm currently where I want to be Evaluated progress towards want or goal stating that he is currently contemplating, writing, journaling, planning, and recognizing. Developed plan to move self forward which involves improving health and relationships with family and friends. Will continue in IOP to stabilize mood. Limited benefit to group due to hypomania. Limited insight into how hypomania impacting functioning as he believes he is where I want to be. Narrative Note: []
--- NOTE | 2018-09-02 09:05 | BH.SGPN.GN ---
Behaviors/Verbalizations/Mental Status: []Pt eye contact good, casually dressed, motor activity appropriate, pressured speech, mood happy and appears hypomanic, congruent affect, thoughts linear and intact, no evidence of delusions or hallucinations. Reviewed client?s symptom tracker, no signs of suicidal ideation, plan, or intent as of today. Client Response/Progress/Benefit: []Pt listened attentively to peers and shared thoughts and feelings during session. Pt reported he had a good day yesterday. Pt shared he has to see his doctor to ensure his sodium level is rising since just in the hospital for low sodium levels. Pt shared he was productive throughout the day by going grocery shopping, getting other small tasks completed, and taking time to create plan for his dinner. Pt reported the past couple of days he has had a tremendous amount of energy, which has helped him be productive. Pt reported typically Wednesdays are difficult for him because it's his only day without having any of his kids, but was able to do well because was not isolating. Pt showing progress with being productive and completing daily responsibilities. It is unclear if pt is currently hypomanic which could be concern for progress if pt doesn't start taking his medication to help stabilize his moods. Pt to continue IOP level of care to stabilize moods and prevent decompensation. Narrative Note: []
--- NOTE | 2018-09-02 10:13 | BH.SGPN.GN ---
Behaviors/Verbalizations/Mental Status: []Client alert and oriented, casually dressed and groomed. Eye contact good. Motor activity appropriate. Speech within normal limits. Affect congruent, mood euthymic. Thoughts linear, logical, no signs of hallucinations or delusions. Client Response/Progress/Benefit: []Client responded well to session, attentive body language and sharing occasionally. Client nodded in agreement that people can cope with problems in healthy or unhealthy ways.Client stated that often people choose unhealthy coping skills because people do not know better, it is impulse, or it was how they were raised. Client connected with group discussion of how using unhealthy coping skills can turn into self-sabotage. Client stated although healthy coping skills are harder to use, they have better, long-lasting benefits such as confidence and increasing one's skill set. Client participated in the group activity and his group struggled at first, but once the group discovered that the base had to be strong they succeeded. Client able to connect that a strong base of healthy coping skills in life can prevent him from major setbacks. Client appeared to benefit from increasing awareness of the benefits of healthy coping skills.
--- NOTE | 2018-09-02 11:20 | BH.PSA ---
Source of Information - Presenting Problems/Circumstances Problems, Referral Source, Mental Status, Client: Client reports 5 1/2 years ago was in the [facility] in December due to having manic episode with scientology preoccupations. Client had lot of energy, spending money, starting lots of projects, fast talking, little need for sleep. Client states he didn't get on medication because didn't accpt the Bipolar Diagnosis because didn't trust the doctor at the hospital. Also, didn't want any medication becasue was feeling good. Client reported during the hospitalization he was confused didn't know what was real, didn't know if he had a family anymore. At that point he chose to go on the medications, but still didn't accept the diagnosis. Client reported he tried to keep jobs, but couldn't maintain a job due to panic attacks. 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 June 2015 qualified for disability due to Bipolar Disorder. Client stated he isolated himself for the past 3 years. Client reported he was killing himself by not doing anything all day and drinking every evening 1/2 bottle of 750ml of high proof vodka, started about his alcohol abuse from 1/2 years. Client shared he was using alcohol as a way to self-medicate because he didn't accpet the Bipolar Disorder. Client shared he is heavy alcohol use didn't kill him. Client reported on May 09, 2018 he was ready to and didn't know why he hadn't dropped yet, but didn't want to kill himself by his own hand. Stated he had thoughts of suicide but never had intention because of his kids and zoroastrian. Client reported he believes there are no coincidences and the number 3 was comingup a lot which to him referenced saima. Started listening to a chirstian music that night and the song that came up made him have an emotional whirlwind - brought up all the negative emotions from his life and the emotions just washed away. REported he had a spiritual connection. Had an amazing 3 weeks after that then went to [place] to see his parents with his kids. The day after Thanksgiving and decided to start drinking. Spiraled out with medical illnesses, continued drinking. Then went to PCP and opened up to Brian Rapp who sent him. Psychiatric Presentation - Psych Issues & Need for Admission Psychiatric Issues:: [place] - counseling and psychiatry. Past Psychiatric History - MH Treatment Hx Medication Trials:: Yes - tonya yeager klonopin, many others. Development & Family of Origin - Family History Family History: Family History (Last Reviewed 09/01/18 @ 13:48 by Annita Zheng) Mother Hypertension Grandfather Cancer
--- NOTE | 2018-09-02 16:05 | BH.MDN ---
Multi-Disciplinary Note - Note 60-min Individual Time Started:: 11:15 Date: 09/02/18 Purpose of session/treatment goals addressed:: Purpose of session was to assess pt's current symptoms and stressors. Other topics included: gathering additional background information and identifying treatment goals for [facility]. Eye Contact:: Good Motor Activity:: Appropriate Appearance:: Casual Speech:: Pressured, Rambling Mood:: Euthymic Affect:: Full Thoughts:: Flight of ideas, No evidence of hallucinations/delusions noted Staff Interventions:: Therapist used open ended questions to elicit pt's current symptoms and stressors. Therapist redirected pt several times to bring pt back to the original question or topic that was being addressed. Therapist used probing questions to gather additional background information. Therapist elicited pt's thoughts about what treatment goals he'd like to accomplish while in [facility]. Therapist encouraged pt to start his mood stabilizer, explained importance of taking his medication. Client Response:: Client reported he is doing much better since his sodium levels are returning back to normal after being in the hospital earlier this week for low sodium levels. Client stated he has been feeling really productive the past couple days and has a lot of energy. Client opened up about what led to him seeking help at [facility]. Client struggled with staying on topic, jumping from topic to topic and needed a redirected mulitple times throughout session to get back to topic or question he had been asked. client reported he recognizes now his inability to accept his Bipolar Diagnosis 5 1/2 years ago resulted in many problems for himself including self-medicating with alcohol, unable to maintain employment, relationship issues, and isolating himself from supports. Client shared he has finally accepted his Bipolar diagnosis and sees it as a gift from God. Client reported he is feeling more positive about his life and is motivated to keep moving forward in life. Client shared for goals he'd like to maintain his positive thought pattenrs, continue to stabilize his moods, and increase positive supports in life. Client reported he has not started his mood stabilizer that he had been prescribed last week. Client shared he understands it's important to start his new medication and reported he will probably start it on Thursday because I like to start things at the beginning of the week. Risks/Concerns:: Client denies suicidal ideation, plan or intention to date. Client appears to be hypomanic and has limited insight on his mood state. Client will continued to be monitored. Progress Toward Goals/Plan:: Client progress hindered by pt not following through with taking his mood stabilizer. Client appears to be in a hypomanic state which is resulting in pt believeing everything is fine and that he is stable. client lacks insight into how his mood instability can negatively impact him. Client to continue IOP level of care to stabilize moods, increase medication compliance and prevent decompensation. Time Stopped:: 12:15
--- NOTE | 2018-09-02 16:34 | BH.MDN_ITS ---
Multi-Disciplinary Note - Note 60-min Individual Time Started:: 11:15 Date: 09/02/18 Purpose of session/treatment goals addressed:: Purpose of session was to assess pt's current symptoms and stressors. Other topics included: gathering additional background information and identifying treatment goals for [facility]. Eye Contact:: Good Motor Activity:: Appropriate Appearance:: Casual Speech:: Pressured, Rambling Mood:: Euthymic Affect:: Full Thoughts:: Flight of ideas, No evidence of hallucinations/delusions noted Staff Interventions:: Therapist used open ended questions to elicit pt's current symptoms and stressors. Therapist redirected pt several times to bring pt back to the original question or topic that was being addressed. Therapist used probing questions to gather additional background information. Therapist elicited pt's thoughts about what treatment goals he'd like to accomplish while in [facility]. Therapist encouraged pt to start his mood stabilizer, explained importance of taking his medication. Client Response:: Client reported he is doing much better since his sodium levels are returning back to normal after being in the hospital earlier this week for low sodium levels. Client stated he has been feeling really productive the past couple days and has a lot of energy. Client opened up about what led to him seeking help at [facility]. Client struggled with staying on topic, jumping from topic to topic and needed a redirected mulitple times throughout session to get back to topic or question he had been asked. client reported he recognizes now his inability to accept his Bipolar Diagnosis 5 1/2 years ago resulted in many problems for himself including self-medicating with alcohol, unable to maintain employment, relationship issues, and isolating himself from supports. Client shared he has finally accepted his Bipolar diagnosis and sees it as a gift from God. Client reported he is feeling more positive about his life and is motivated to keep moving forward in life. Client shared for goals he'd like to maintain his positive thought pattenrs, continue to stabilize his moods, and increase positive supports in life. Client reported he has not started his mood stabilizer that he had been prescribed last week. Client shared he understands it's important to start his new medication and reported he will probably start it on Thursday because I like to start things at the beginning of the week. Risks/Concerns:: Client denies suicidal ideation, plan or intention to date. Client appears to be hypomanic and has limited insight on his mood state. Client will continued to be monitored. Progress Toward Goals/Plan:: Client progress hindered by pt not following through with taking his mood stabilizer. Client appears to be in a hypomanic state which is resulting in pt believeing everything is fine and that he is stable. client lacks insight into how his mood instability can negatively impact him. Client to continue IOP level of care to stabilize moods, increase medication compliance and prevent decompensation. Time Stopped:: 12:15
--- NOTE | 2018-09-02 20:54 | BH.MTP ---
Master Treatment Plan - Patient Information Program Physician:: Dr. Quintana Primary Therapist:: Marjan Umana, [facility] - Psychiatric Diagnoses Psychiatric Diagnoses:: Bipolar disorder; anxiety disorder unspecified; alcohol use disorder Diagnosis Code(s):: F31.9 - Estimated LOS Estimated LOS (in weeks):: 6 Problem/Goal #1 - Problem/Goal #1 Stated Goal:: Client will increase mood stability, decrease depressive symptoms, and suicidal thinking due to Bipolar I disorder through Intensive Outpatient Program. Description of Barriers: Pt's apprehension with taking psychiatric medications could be barrier to progress. Other potential barriers could be: distorted thought patterns, difficulty accepting bipolar diagnosis, isolative behaviors, and limited support network. Functional Impact: Pt's mental health symptoms impact pt's ability to maintain a job, has led to isolative behaviors, passive thoughts of , and overall not functioning at baseline. Goal Relevant Strengths/Supports: Pt is intelligent, resilient and verbalizes motivation to get better. - Objectives Objective #1 Stated Objective: Client will identify 2-3 warning signs for depressed and manic states and 2-3 coping skills to help maintain stability. Interventions: Therapist will provide psychoeducation about common symptoms of manic and depressed states. Therapist will assist pt with identifying pt's warning signs for manic and depressed state. Therapist will teach pt healthy coping skills to help maintain mood stability. Discharge Criteria: Client will have met this goal when can identify at least 2 warning signs for manic and depressed mood states and apply at least 2 healthy coping to help maintain mood stability. Target Date: 10/04/18 Review Date: 09/20/18 Objective #2 Stated Objective: Pt will decrease depressive and manic symptoms AEB pt?s score on the DSM 5 cross-cutting measure and improve pt?s daily functioning. Interventions: Through groups and individual therapy, pt will be provided with education on cognitive distortions, mistaken beliefs, and identifying and combating negative self-talk. Therapist will assist pt with getting back into the activities she once enjoyed as well as increasing healthy coping strategies. Discharge Criteria: Pt will have met this goal when pt?s score on the DSM 5 cross cutting measure for depression and shawn has been decreased and per pt?s report daily functioning has improved. Target Date: 10/04/18 Review Date: 09/20/18 Problem/Goal #2 - Problem/Goal #2 Stated Goal:: Client will reduce overall frequency, intensity, and duration of anxiety so that daily functioning is not impaired. Description of Barriers: Pt's apprehension with taking psychiatric medications could be barrier to progress. Other potential barriers could be: distorted thought patterns, difficulty accepting bipolar diagnosis, isolative behaviors, and limited support network. Functional Impact: Pt's mental health symptoms impact pt's ability to maintain a job, has led to isolative behaviors, passive thoughts of , and overall not functioning at baseline. Goal Relevant Strengths/Supports: Pt is intelligent, resilient and verbalizes motivation to get better. - Objectives Objective #1 Stated Objective: Client will learn and implement 2-3 calming skills to reduce overall anxiety and manage anxiety. Interventions: Therapist will teach the client calming/relaxation skills and help clients connect ways to apply skills to daily life. Discharge Criteria: Client will have met this goal when can identify at least 2-3 healthy coping skills and consistently apply skills to manage anxious symptoms. Target Date: 10/04/18 Review Date: 09/20/18 Objective #2 Stated Objective: Pt will decrease anxious symptoms AEB pt?s score on the DSM 5 cross-cutting measure improve pt?s daily functioning. Interventions: Through groups and individual therapy, pt will be provided education about anxiety?s impact on body and common physiological reaction to anxiety. Therapist will teach pt appropriate breathing techniques and build healthy coping skills to manage daily anxieties. Discharge Criteria: Pt will have met this goal when pt?s score on the DSM 5 cross cutting measure for anxiety has been decreased and per pt?s report daily functioning has improved. Target Date: 10/04/18 Review Date: 09/20/18
--- NOTE | 2018-09-30 22:13 | BH.TPR ---
Treatment Plan Review Date of Admission:: 08/23/18 Date of Treatment Plan Review:: 09/20/18
== END 2018-09-02 23:59 | disposition home or self-care (01) ==
LOC: BHIOP 08:58
PROVIDERS: Family Provider Internal Medicine; PCP Internal Medicine; Referring Provider Psychiatry & Neurology Psychiatry; Visit Provider Psychiatry & Neurology Psychiatry
DX: F31.9 Bipolar disorder, unspecified (principal); F41.9 Anxiety disorder, unspecified; F10.11 Alcohol abuse, in remission; I10 Essential (primary) hypertension; K21.9 Gastro-esophageal reflux disease without esophagitis; E66.9 Obesity, unspecified; Z62.810 Personal history of physical and sexual abuse in childhood
CPT/HCPCS: H0035; 90837; 90853

== ENCOUNTER → 2018-09-02 08:45 | Outpatient (CLI) | payer MEDICARE, MEDICAID, SELFPAY ==
[2018-09-01 13:51] VITALS: BMI 41.9
[2018-09-02 12:49] LABS: Absolute Lymphocyte Count 1.54 X10^3/ul (0.83-4.51); Absolute Neutrophil Count 2.3 X10^3/uL (2.0-7.7); Basophil# 0.02 X10^3/uL; Basophil% 0.5 % (0-1); Eosinophil# 0.12 X10^3/uL; Eosinophils% 2.7 % (0-5); Hematocrit 42.3 % (40-54); Lymphocyte # 1.54 X10^3/ul (4.0); Lymphocyte % 35.2 % (19-41); Mean Corp Hgb Conc 35.5 g/gl (32-36); Mean Corpuscular Hgb 32.1 pg (27.0-32.0); Mean Corpuscular Volume 90.4 fL (80-94); Mean Platelet Vol. 11.7 fl (6.2-12.0); Monocyte# 0.39 X10^3/uL; Monocyte% 8.9 % (0-10); Neutrophil % 52.5 % (47-70); Platelet Count 202 K/mm3 (150-450); RBC Distribution Width CV 11.9 % (11.6-14.6); RBC Distribution Width SD 38.8 fl (35.1-43.9); Red Blood Count 4.68 M/mm3 (4.6-6.2); White Blood Count 4.4 K/mm3 (4.4-11.0)
[2018-09-02 12:52] LABS: POSITIVE COUNT NO; POSITIVE DIFFERENTIAL NO; POSITIVE MORPHOLOGY NO
[2018-09-02 13:11] LABS: ALB/GLOB Ratio 1.1 RATIO (0.9-2.4); AST(SGOT) 38 U/L (15-37); Alanine Aminotransfer ALT/SGPT 64 U/L (16-61); Albumin, Serum 4.2 g/dL (3.2-5.0); Alkaline Phosphatase 81 U/L (45-117); Anion Gap 13 (5-15); BUN 13 mg/dL (7-18); BUN/Creat Ratio 11.5 RATIO (10-20); Calcium,Total 9.4 mg/dL (8.5-10.1); Chloride 100 mmol/L (98-107); Creatinine, Serum 1.13 mg/dL (0.70-1.30); EST Glomerular Filtration Rate 76 mL/min (>60); Est Glom Filt Rate - Afr Amer 92 mL/min (>60); Globulin 3.8 g/dL (2.2-4.2); Glucose 97 mg/dL (74-106); Potassium 3.9 mmol/L (3.5-5.1); Sodium Level 136 mmol/L (136-145)
== END ==
PROVIDERS: Family Provider Internal Medicine; PCP Internal Medicine; Visit Provider Nurse Practitioner Family
DX: E87.1 Hypo-osmolality and hyponatremia (principal); G47.10 Hypersomnia, unspecified; I10 Essential (primary) hypertension
CPT/HCPCS: 36415; 80053; 85025

== ENCOUNTER 2018-09-06 09:00 | Outpatient (RCR) | payer MEDICARE, MEDICAID, SELFPAY ==
[2018-09-01 13:51] VITALS: BMI 41.9
--- NOTE | 2018-09-06 09:03 | BH.SGPN.GN ---
Behaviors/Verbalizations/Mental Status: []Client alert and oriented, casually dressed. Eye contact good. Motor activity appropriate. Speech within normal limits. Affect full, mood euthymic. Thoughts linear, logical, no signs of hallucinations or delusions. Reviewed client?s symptom tracker, no risk for suicidal ideation, plan, or intent as of 09/06/18. Client Response/Progress/Benefit: []Client responded well to session, listening to peers and participating when prompted. Client reports feeling enlightened today after going through a recent medical scare. Client's current mental health positives include his sodium and liver enzymes are good and I didn't lose myself mentally when everything was going on. Client shared he has been trying to have more self-awareness to prevent overloading himself when he feels good. Client reported his stressor is I crashed hard when after he got out of the hospital. Client appeared to benefit from connecting with the group and reflecting on positives. Progress noted as client reports practicing self-awareness, but he continues to struggle with implementing healthy coping skills to manage mood symptoms.
--- NOTE | 2018-09-06 10:23 | BH.SGPN.GN ---
Behaviors/Verbalizations/Mental Status: [Client alert and oriented, casually dressed wearing a baseball cap. Eye contact fair to good. Motor activity appropriate. Speech normal rate, appropriate tone minimal input provided. Affect constricted, mood anxious. Thoughts linear, logical, no signs of hallucinations or delusions. ] Client Response/Progress/Benefit: [Client receptive of session, providing limited input throughout and mostly taking on an observatory role. CLient appearing to be actively listening AEB taking notes and nodding during discussion. Client connected with the topic of cognitive distortions and actively listening during group discussion regarding ways in which thoughts can have a positive or negative impact on mental health. Client listened and took notes as the group identified the different types of cognitive distortions. He noted that he could relate to the various examples provided, though declined to identify his own commonly used distortions. Client appeared to benefit from increasing awareness of how cognitive distortions impact mental health. Limited progress noted due to client limited engagement in the group which may impact ability to make meaningful connections between materials and his own mental health. Client to continue treatment with a focus on identifying mental health warning signs and symptoms, preventing decompensation, and increasing use of health coping and decision making. ] Narrative Note: []
--- NOTE | 2018-09-08 10:22 | BH.SGPN.GN ---
Behaviors/Verbalizations/Mental Status: []Client alert and oriented, neatly dressed and groomed. Eye contact good. Motor activity appropriate. Speech within normal limits. Affect flat, mood euthymic. Thoughts linear, logical, no signs of hallucinations or delusions. Client Response/Progress/Benefit: []Client responded well to session, did not engage in discussion, but was actively listening and participated in the activity. Client appeared to be listening during discussion of the quote as shown by his nodding and eye contact. Client agreed with peers that pitfalls are things people, do such as unhealthy coping, that could keep people stuck. Client listened as the group provided examples of pitfalls. Client nodded in agreement with peers that having awareness of triggers and pitfalls can prevent a person from making the same mistakes repeatedly. Client participated in the activity and listened to feedback from peers. Client appeared to benefit from increasing awareness of how pitfalls impact mental health. Progress variable as client has shown improved mood at times, but he continues to report inconsistent follow through with healthy coping skills.
--- NOTE | 2018-09-08 11:20 | BH.SGPN.GN ---
Behaviors/Verbalizations/Mental Status: [] Eye contact is good. Motor activity is appropriate. Appearance is casual. Speech is Appropriate. Mood is irritable. Affect is congruent. Thoughts are linear and logical. No evidence of psychosis. Continues to display hypomania however appears more focused Client Response/Progress/Benefit: [] Limited participation in group discussion, however was attentive and was seen nodding in agreement with group suggestions. Completed activity. Pt completed a worksheet where he identified his own personal pitfalls however continues to report pitfalls are in the past. Limited insight into how his hypomania impacts current functioning. Along with the group he also identified general pitfalls or obstacles that keep them stuck in Thier life. Obstacles included; being unorganized, lack of a plan, not communicating, fear of failure, not utilizing supports, and letting emotions get in the way of progress. Group worked together to identify strategies to overcome personal and general pitfalls which included; actively participating in mental health treatment, developing and committing to a plan, identifying decision-making and problem solving strategies, reflection on past experiences, identifying coping skills that are effective and not effective, reframing, and challenging negative thoughts. Benefited from identifying personal and general pitfalls and strategies to over these pitfalls. Will continue in IOP to stabilize mood. Staff continues to provide support and education regarding hypomania as well as encourage compliance with medications. Narrative Note: []
--- NOTE | 2018-09-09 09:05 | BH.SGPN.GN ---
Behaviors/Verbalizations/Mental Status: []Client alert and oriented, neatly dressed and groomed. Eye contact good. Motor activity appropriate. Speech within normal limits. Affect incongruent- smiling while reporting feeling like a failure, mood dysthymic. Thoughts linear, logical, no signs of hallucinations or delusions. Reviewed client?s symptom tracker, no risk for suicidal ideation, plan, or intent as of 09/09/18. Client Response/Progress/Benefit: []Client responded somewhat well to session, quiet unless prompted by therapist. Client reports feeling ?mixed? today as he can recognize positives, but he also is experiencing some negative self-talk. Client?s current mental health win is that he has been getting up earlier to try and establish a better routine. Client struggled to identify additional positives today as he reported numerous negative thought patterns. Client shared with the group that he has thoughts of ?I failed my babies? I made so many mistakes.? The sole cementer and group helped client acknowledge and combat his negative thought. Client was able to recognize that he has not failed his children, but shared he continues to feel upset about it. Client appeared to benefit from processing and challenging his negative thinking. Progress variable as client has reported some improvement in mood, but he continues to struggle with inconsistent application of healthy coping skills and medication noncompliance.
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
--- NOTE | 2018-09-13 09:10 | BH.SGPN.GN ---
Behaviors/Verbalizations/Mental Status: [] Eye contact is good. Motor activity is appropriate. Appearance is casual. Speech is Appropriate. Mood is depressed. Affect is flat. Thoughts are linear and logical. No evidence of psychosis. Reviewed daily check in sheet and no reports of suicidal ideations or intent. Client Response/Progress/Benefit: [] Pt participated in group when prompted. Emotion for today is depressed. Expressed to the group that he has been feeling lonely. Describes his mood as mixed. Discussed concerns about his daughter's social life. Reports that a friend that he has been reaching out too has cancelled plans for the past 2 weeks. Continues to be attempt to engage through [facility] however stated several times that he is struggling with loneliness. Group provided support and encouragement which was beneficial. Will continue in IOP to stabilize mood and prevent decompensation. No progress noted per pt report. Narrative Note: []
--- NOTE | 2018-09-13 10:15 | BH.SGPN.GN ---
Behaviors/Verbalizations/Mental Status: []Client alert and oriented, neatly dressed and groomed. Eye contact good. Motor activity appropriate. Speech within normal limits. Affect flat, mood dysthymic. Thoughts linear, logical, no signs of hallucinations or delusions. Client Response/Progress/Benefit: []Client responded well to session, passive participant, appeared depressed. Client nodded that viewing situations as impossible can negatively impact one?s mental health. Client appeared to connect with fixed thinking, nodding at comments from peers. Client stated that if one can challenge fixed thinking it can positively impact mental health. Client struggled at first with identifying fixed thinking patterns that have kept client feeling stuck. However, with help from therapist, client could identify some thoughts. Client?s thoughts were ?I?ll always be alone and I?ve failed my babies.? Client engaged in the group activity and the group did not complete the activity during second group. Despite lack of success, client did not fall into fixed thinking pitfalls and stayed active. Client appeared to benefit from gaining awareness how fixed thinking can negatively impact mental health progress. Progress noted in client?s medication compliance, but he continues to have limited insight to his how his negative thoughts impact emotions and behaviors.
--- NOTE | 2018-09-13 11:16 | BH.SGPN.GN ---
Behaviors/Verbalizations/Mental Status: [Client maintained good eye contact, casually dressed, motor activity appropriate, speech normal rate and tone limited input provided, mood dysthymic, anxious, affect constricted, thoughts linear, logical, no evidence of delusions or hallucinations] Client Response/Progress/Benefit: [Client attentive and able to engage in both discussion and growth mindset reflection activity though taking on a mostly passive participatory role. He did well to work with the group on identifying self-reflection questions and strategies to reframe fixed mindset thoughts. Participated in reflection on how fixed mindset thoughts the group experienced in the activity impacted motivation levels. Client identified that fixed thoughts led to irritability and disengagement and was able to relate this back to his own experiences with his mental health. Client worked with group to use cognitive restructuring to reframe his own identified fixed thoughts. Client worked to replace fixed thought of ?I?ll always be lonely? with growth mindset thought of ?I?m taking steps to be more social?. Client benefitted from discussing strategies to promote a growth mindset in daily life and indicated that for him thought challenging is beginning to come more naturally but continues to struggle. Progress noted in client willingness to challenge negative or fixed thoughts, though continues to struggle in providing input during group discussions. Continued IOP tx to maintain safety, increase insight regarding mental health warning signs/triggers, and promote healthy coping behaviors] Narrative Note: []
--- NOTE | 2018-09-15 10:15 | BH.SGPN.GN ---
Behaviors/Verbalizations/Mental Status: []Client alert and oriented, neatly dressed and groomed. Eye contact good. Motor activity appropriate. Speech within normal limits. Affect congruent, mood euthymic. Thoughts linear, logical, no signs of hallucinations or delusions. Client Response/Progress/Benefit: []Client responded well to session, active participant. Client further processed his conflict resolution style. Client reported he uses all the different styles, but in the past, he was accommodating and has done things against his values. Client shared ?I would never go against my values now.? Client was encouraged to practice being collaborative during the active. Client was able to practice asserting his thoughts and listening to others. Client helped the group identify things that positively and negatively impact conflict resolution. Client agreed with group that assuming and not managing emotions both negatively impact conflict resolution. Client helped the group identify strategies to better manage conflict such as challenging negative thoughts and focusing on the facts. Client appeared to benefit from learning conflict resolution strategies and practicing in the moment. Progress noted as client reports medication compliance and increased self-awareness. Client to continue IOP to prevent decompensation and increase use of healthy coping skills to regulate mood.
--- NOTE | 2018-09-15 10:15 | BH.SGPN.GN ---
Behaviors/Verbalizations/Mental Status: [] Eye contact is good. Motor activity is appropriate. Appearance is casual. Speech is Appropriate. Mood is depressed. Affect is flat. Thoughts are linear and logical. No evidence of psychosis. Client Response/Progress/Benefit: [] Pt was an active participant in group discussion and activity. Worked together with the group to define conflict which they reported was; two opposing forces, wanting two different outcomes, two different perspectives on same situation, misunderstanding, internal struggles with decisions or emotions, feeling torn, and balancing. Described difference between external conflict and internal conflict. Discussed the benefits of conflict in progressing in relationships and mental health. Pt worked with group to identify barriers to over conflict which included; strong belief in one's perspective or view, miscommunication, one's emotional mood, fear, ramifications, consequences, and negative distortions. Attentive during psycho-education on different types of conflict styles. Pt reports that his conflict style is a mixture of all types. Limited insight into how his conflict style impacts his mental health. Benefited as she was able to identify and define conflict as well as increase awareness of how conflict style impacts his mental health. Will continue in IOP to stabilize mood and prevent decompensation. Narrative Note: []
--- NOTE | 2018-09-16 10:25 | BH.SGPN.GN ---
Behaviors/Verbalizations/Mental Status: [Pt eye contact fair to good, casually dressed, motor activity appropriate, speech normal rate and tone minimal input provided, mood dysthymic, constricted affect, thoughts linear and intact, no evidence of delusions or hallucinations.] Client Response/Progress/Benefit: [Pt receptive of session and engaged throughout AEB participating in the activity, listening attentively to peers? comments, and taking notes during session. Pt appeared to connect with various definitions of resilience provided by the group as well as ideas for how resilience can have positive impacts mental health and wellness. Pt agreed with peers it's important to be resilient so you can have something to keep you motivated to make progress and look forward to. Pt engaged in small group discussion about the various strategies that can help strengthen one's resilience and increased input during small group discussion. Pt seemed to benefit from increased awareness of various components that can contribute to increased resilience. Continued IOP recommended to prevent decompensation, increase skill application, and continue to improve emotion regulation. ] Narrative Note: []
--- NOTE | 2018-09-16 13:00 | BH.MDN ---
Multi-Disciplinary Note - Note 60-min Individual Date: 09/16/18
--- NOTE | 2018-09-20 09:36 | BH.COMM ---
Communication Note - Communication with Client Communication Note: Patient cancelled attending IOP today due to being sick. Patient confirmed would attend family session tomorrow and return to group on Thursday of this week.
--- NOTE | 2018-09-22 09:10 | BH.SGPN.GN ---
Behaviors/Verbalizations/Mental Status: [] Eye contact is good. Motor activity is appropriate. Appearance is casual. Speech is Appropriate. Mood is depressed/irritable. Affect is congruent. Thoughts are linear and logical. No evidence of psychosis. Reviewed daily check in sheet and no reports of suicidal ideations or intent. Client Response/Progress/Benefit: [] Pt did not participate in group discussions. Emotions for today ios irritable. Pt's check-in was short however reports postive is that he got a gym membership. Discussed the postive impact of daily exercise to his mental wellness. Overall quiet however attentive during group. No progress noted. Will continue in IOP to stabilize mood and prevent decompensation. Narrative Note: []
--- NOTE | 2018-09-22 10:16 | BH.SGPN.GN ---
Behaviors/Verbalizations/Mental Status: [Client alert and oriented, casually dressed and appropriately groomed. Eye contact good. Motor activity appropriate. Speech within normal limits, minimal input provided. Affect constricted, mood euthymic, anxious. Thoughts linear, logical, no signs of hallucinations or delusions. ] Client Response/Progress/Benefit: [Pt responded well to session, actively engaged throughout activity and discussion. Provided insight regarding topic of social supports and related to input provided by the group. Pt shared connecting to barriers to seeking support discussed by the group. Identified benefits of social support as helping us gain perspective and reassurance. Pt was engaged during the group activity and responded well to direction as well as provided suggestions to the group. Appeared to benefit from gaining awareness of barriers that keep from seeking social support as well as practicing in the moment coping skills during activity. Progress noted in ability to use anxiety management skills during activity. Continued tx to prevent decompensation, maintain safety, as well as continue to make progress towards tx goals.] Narrative Note: []
--- NOTE | 2018-09-22 11:20 | BH.SGPN.GN ---
Behaviors/Verbalizations/Mental Status: []Pt alert and oriented, eye contact good, casually and neatly dressed, motor activity appropriate, speech normal rate and tone, mood euthymic, congruent affect, thoughts linear and intact, no evidence of delusions or hallucinations. Client Response/Progress/Benefit: []Client semi-active participant AEB client contributing at times to discussion, however listened attentively to others. Client worked with the group to make connections between barriers faced in the challenge activity and strategies for managing these barriers with utilizing social supports in daily life. Client reflected that a personal barrier in using his current supports is isolative behaviors. Client contributed to discussion about the different types of support and benefits different types of support can provide. Client worked with the group to identify strategies for improving development of new supports and better utilization of current supports. Client identified he would like to improve his personal relationships because he currently doesn't have any due to his isolative behaviors. Client seemed to benefit from identifying a type of support he would like to improve upon and creating actionable steps to promote follow-through. Client to continue IOP level of care to prevent decompensation, increase use of healthy supports and stabilize moods. Narrative Note: []
--- NOTE | 2018-09-23 12:04 | BH.COMM ---
Communication Note - Communication with Client Communication Note: client called and cancelled attending IOP level of care today due to not feeling well. Client confirmed he would attend IOP next week on Thursday, Thursday and .
--- NOTE | 2018-09-24 10:45 | BH.COMM ---
Communication Note - Communication with Client Communication Note: Client scheduled to see IOP psychiatrist today, however unable to attend due to client being sick.
--- NOTE | 2018-09-27 11:16 | BH.SGPN.GN ---
Behaviors/Verbalizations/Mental Status: [Eye contact is good. Motor activity is appropriate. Appearance is casual - new tattoo on back of head. Speech is Appropriate - limited input provided. Mood is dysthymic. Affect is constricted. Thoughts are linear and logical. No evidence of psychosis.] Client Response/Progress/Benefit: [Pt participated in group activity though at times appearing to disengage and take on a mostly observatory role. Client initially provided minimal input to discussion, though responded when given prompt. Pt worked with the group to complete the challenge activity and with elicitation able to identify barriers encountered that may also impact managing stress in daily life. Identified barriers as feeling physically ill and low motivation to use healthy skills. Pt worked with the group to identify strategies for coping with stress which included; getting back into writing and taking care of physical health. Benefited from identifying personal barriers to managing stress, impact of stress on mental health, and stress management strategies. Pt indicated wanting to work on current stressor of physical sx impacting mental health by improving focus on self-care. Pt to continue in IOP to prevent decompensation, improve mood management and increase consistency of healthy skill application.] Narrative Note: []
--- NOTE | 2018-09-27 13:53 | BH.MDN ---
Multi-Disciplinary Note - Note 60-min Individual Time Started:: 12:31 Date: 09/27/18 Purpose of session/treatment goals addressed:: Purpose of session was to assess pt's current symptoms and stressors. Other topics: increasing awareness of symptoms of shawn and depression, mood tracker, and discussed treatment progress/discharge. Eye Contact:: Good Motor Activity:: Appropriate Appearance:: Casual Speech:: Appropriate Mood:: Dysthymic Affect:: Constricted Thoughts:: Linear, Logical, No evidence of hallucinations/delusions noted Staff Interventions:: Therapist used open ended questions to elicit pt's current symptoms and stressors. Therapist educated pt about the common shawn and depressed symptoms to increase pt's awarness and gain insight into how each symptom impacts his functioning. Therapist discussed importance of pt being aware of his warning signs of different mood states, especially since pt does not want to take a mood stabilizer. Therapist elicited pt's thoughts about treatment progress and thoughts about discharge from program. Therapist provided pt with homework to complete daily mood tracker and identify which shawn and depressed symptoms he experiences. Time Stopped:: 13:30
--- NOTE | 2018-09-29 09:00 | BH.SGPN.GN ---
Behaviors/Verbalizations/Mental Status: [] Eye contact is good. Motor activity is appropriate. Appearance is casual. Speech is Appropriate. Mood is depressed. Affect is flat. Thoughts are linear and logical. No evidence of psychosis. Reviewed daily check in sheet and no reports of suicidal ideations or intent. Client Response/Progress/Benefit: [] Pt did not participant in group discussion. Emotion for today is depressed. Pt's check-in was short stating that he has been feeling physically ill which has impacted his energy and mood. Choose not to elaborate more. Attentive during group discussions. No progress noted. Limited benefit however group was supportive. Will continue in IOP to prevent decompensation and stabilize mood. Narrative Note: []
--- NOTE | 2018-09-29 10:10 | BH.SGPN.GN ---
Behaviors/Verbalizations/Mental Status: [Client alert and oriented, casually dressed. Eye contact fair to good. Motor activity appropriate. Speech within normal limits - limited input provided. Affect constricted, mood euthymic. Thoughts linear, logical, no signs of hallucinations or delusions. ] Client Response/Progress/Benefit: [Pt receptive to session, more actively contributing than typical baseline. Pt participated in discussion regarding anxiety and barriers in managing anxiety related sx. He participated in reviewing common physical, cognitive, and behavioral symptoms experienced with anxiety and identified connecting with the various examples of anxiety safety behaviors provided. Identified personal physical anxiety symptoms as: feeling lightheaded and disconnected, stiff neck, feeling hot/sweaty, nausea. Shared that anxiety related safety behaviors include: lying, isolating, becoming irritability especially towards his children. Pt did well to review mental health impacts of sx within small group setting. Appeared to benefit from psychoeducation on anxiety and increasing awareness of physical symptoms as well as common safety behaviors used. Continued IOP to improve emotion regulation, decrease depression, and prevent decompensation.] Narrative Note: []
--- NOTE | 2018-09-29 11:15 | BH.SGPN.GN ---
Behaviors/Verbalizations/Mental Status: []Client alert and oriented, casually dressed and groomed. Eye contact fair. Motor activity appropriate. Speech quiet. Affect constricted, mood dysthymic. Thoughts linear, logical, no signs of hallucinations or delusions. Client Response/Progress/Benefit: []Client responded well to session, mostly quiet, but participated in exercises. Client listened to discussion of how one can learn to better manage anxiety. Client reported ?you can?t control your thoughts, I wish I could.? Client agreed that managing anxiety requires using coping skills and learning to work through negative thoughts. Client appeared to connect with mindfulness and the different ways one can practice mindfulness. Client engaged in the mindfulness exercises led by merchandising director. Client created a mindfulness ?menu? and reported he plans to try 5-4-3-2-1 as a technique to manage anxiety. Client appeared to benefit from practicing in the moment mindfulness techniques. Progress limited as client continues to report mood instability and medication noncompliance. Client to continue IOP to prevent further decompensation.
--- NOTE | 2018-09-30 09:01 | BH.SGPN.GN ---
Behaviors/Verbalizations/Mental Status: [Eye contact is fair to good. Motor activity is appropriate. Appearance is casual and comfortable. Speech is Appropriate. Mood is anxious and dysthymic. Affect is congruent. Thoughts are linear and logical. No evidence of psychosis. Reviewed daily check in sheet with no reports of suicidal ideations or intent] Client Response/Progress/Benefit: [Pt engaged in group AEB willingness to process and remaining attentive throughout group discussion despite providing limited input. Emotion for today is mixed that his mood continues to be impacted by feeling sick the past few days. Able to identify mental health positives as getting to group on time today as he often struggles with running late and feeling more motivated to work towards goal of returning to work. Shared that this is both a positive and a stressor as he feels overwhelmed when thinking about going back to work. He was receptive of feedback provided and indicated trying to take things slowly and really consider his options. Connected with another participant as she discussed similar anxieties and appeared to benefit from the shared experience and support of the group. Some progress noted in pt identifying goals he is working towards. Will continue in IOP to prevent decompensation, continue to work on emotion regulation skills, and reduce depression.] Narrative Note: []
--- NOTE | 2018-09-30 10:20 | BH.SGPN.GN ---
Behaviors/Verbalizations/Mental Status: []Client alert and oriented, neatly dressed and groomed. Eye contact good. Motor activity appropriate. Speech WNL. Affect constricted, mood depressed. Thoughts linear, logical, no signs of hallucinations or delusions. Client Response/Progress/Benefit: []Client passive participant AEB pt not providing input to group discussion, however did appear to listen to others comments. Client connected with the topic of failure and famous people that have overcome setbacks. Client nodded that fear of failure can lead to giving up, worse mental health, and self-destructive behavior. Client agreed fear of failure can result from all or nothing thinking. Client engaged in a group activity that encouraged the group to overcome fear of failure and challenge their perspective of failure. Client was positive and accepted help from group members. Client appeared to benefit from gaining awareness of how fear of failure negatively impacts mental health. Client progress is hindered by client's lack of insight into his mood states, difficulty recognizing depressive warning signs. Client's mood instability could also be hindered by client being medication noncompliant. Narrative Note: []
--- NOTE | 2018-09-30 12:42 | BH.MDN ---
Multi-Disciplinary Note - Note 45-min Individual Time Started:: 11:23 Date: 09/30/18 Purpose of session/treatment goals addressed:: Purpose of session was to assess pt's current symptoms and stressors. Other topics: review homework from last session, reviewed treatment progress and discharged tentative discharge week, and provided referrals for outpatient counseling and psychiatry. Eye Contact:: Good Motor Activity:: Appropriate Appearance:: Casual Speech:: Appropriate Mood:: Dysthymic Affect:: Constricted Thoughts:: Linear, Logical, No evidence of hallucinations/delusions noted Staff Interventions:: Therapist used open ended questions to elicit pt's current symptoms and stressors. Therapist reviewed pt's homework from last session, assisting pt with identifying mood state changes. Therapist elicited pt's thoughts about treatment progress and thoughts about discharge from IOP. Therapist collaborated with pt to identify tentative discharge week and inquired what pt would find to be most helpful to focus on during last two weeks of IOP. Therapist provided support by using active listening and validating emotions. Client Response:: Client reported he completed the homework from last session with identifying which manic and depressive symptoms he experiences and how each symptom impacts his daily functioning. Client identified almost all of the the manic and depressive states as symptoms he has experienced. Client stated he believes his functioning is most impacted when in a depressed state. Client shared besides his one hospitalization 10+ years ago he can't pinpoint too many consequences from being in a manic state. Client identified making impulsive financial decisions to be manic symptom that has had consequences in his life previously, but currently believes it won't be a problem because he is on a fixed income. Client reported after reflecting on his progress since starting IOP he recognizes when he first started the program he was in a hypomanic state and over the past couple of weeks he notes increased depressed symptoms. Client reported he has decreased energy, decreased motivation, increased difficulty getting out of the house, and increased desire to isolate. Client connected with idea of behavioral activation recognizing he needs to do engage in activities and coping skills to help improve his mood. Client reported he would benefit from two more weeks in IOP since he has missed several sessions recently, would give him time to set up outpatient counseling and utilize his skills more consistently to decreased depressed state. Risks/Concerns:: Client denies suicidal ideation, plan or intention to date. Progress Toward Goals/Plan:: Progress noted with client continuing to get out of the house despite having increased desire to isolate and decreased motivation. Client also progressing with increased insight and awareness of his manic and depressed symptoms. Client continuing to struggle with understanding impact shawn can have on his abliity to function AEB client stating he doesn't find shawn to impact him that much which results in client not wanting to create a safety plan of what skills/strategies could help when notices warning signs of shawn. Client continuing to not take mood stabilizer that was prescribed when started program. Client to continue IOP level of care to decrease depression, increase consistent use of healthy coping and prevent decompensation. Time Stopped:: 12:13
--- NOTE | 2018-09-30 22:35 | BH.MTP_ITS ---
Treatment Plan Review Date of Admission:: 08/23/18 Date of Treatment Plan Review:: 09/20/18 Admitting Diagnoses:: F 31.9 Bipolar disorder type I, anxiety disorder and specified, alcohol use disorder, in early remission Current Diagnoses:: F 31.9 Bipolar disorder type I, anxiety disorder and specified, alcohol use disorder, in early remission Patient's Response to Treatment:: Pt?s response to treatment has been variable AEB pt initially consistently attending IOP, but more recently has struggled with cancelling several times or arrive late to program. Pt initially was an active participant in group counseling as shown by pt contributing thoughts and ideas to discussion, listening attentively to others, and engaged during activities. For the past 2 weeks pt has become a passive participant AEB pt contributing very little to discussion. Pt is engaged in his individual counseling treatment as shown by pt opening up about his thoughts and feelings. Also, completes homework given to him from individual therapy. Status of Current Problems and Symptoms: Pt overall progress is variable as evidenced by pt's mood instability. Pt seemed to be in a hypomanic state for about the first two weeks which his mood has switched to moderate depressed state. Pt currently endorses depressed mood, racing thoughts, irritability, low motivation, and increased desire to not leave the house. Pt reports no suicidal ideation. Denies current manic state. Pt continues to experience ruminative anxiety, but of decreased intensity and duration. Pt not medication compliant due to pt being unsure if he is willing to take a mood stabilizer because he would like to manage his symptoms without medications. Pt?s medication non- compliance could be barrier to progress. Team recommends pt to continue IOP level of care to maintain gains, increase awareness and skills to help stabilize moods, increase generalization of skills and prevent decompensation. Problem #1 Problem Name:: Increase mood stability, decrease depressive symptoms and decrease SI Status of Goals:: Objective 1 - Pt has demonstrated variable progress. Pt is able to identify warning signs for manic episode which includes non-stop talking, little need for sleep, and impulsive financial endeavors. Pt struggling to identify what strategies/skills he can utilize to help him when starts to recognize warning signs of shawn. Pt continuing to struggle with identify warning signs for depressed state. Pt states having more confidence in recognizing shawn versus his depression. Objective 2 - Due to pt cancelling IOP several times during the week of his treatment review DSM 5 cross-cutting measure was not able to be completed. Based on pt's overall functioning pt is not showing signs or symptoms of a manic state. However, pt does appear to be in a depressed state as evidenced by cancelling IOP sessions recently, need for more sleep, and decreased engagement in group sessions. Team Recommendations:: Team recommends pt continue current goal and objectives until more consistent progress is demonstrated for both objectives. Problem #2 Problem Name:: Reduce overall frequency, intensity, and duration of anxiety Status of Goals:: Objective 1 - Pt is progressing on objective AEB pt being able to identify at least 2 healthy calming skills of breathing and grounding tools to help manage anxious symptoms. Objective 2 - Due to pt cancelling IOP several times during the week of his treatment review DSM 5 cross-cutting measure was not able to be completed. Pt has been able to go to the grocery store several times without experiencing a panic attack. Pt is also getting out of his house on a more frequent basis which demonstrates pt's anxiety has decreased compared to when first started program. Team Recommendations:: Team recommends pt continue current goal and objectives until more consistent progress is demonstrated for both objectives.
--- NOTE | 2018-10-01 10:43 | BH.COMM ---
Communication Note - Communication with Client Communication Note: Client scheduled to see IOP psychiatrist today, however client unable to attend due to other responsibilities.
--- NOTE | 2018-10-20 11:56 | BH.MDN_ITS ---
Multi-Disciplinary Note - Note Family Time Started:: 12:30 Date: 09/21/18 Purpose of session/treatment goals addressed:: Purpose of family session was to provide psychoeducation to pt's adolescent daughter about bipolar disorder and answer any questions or concerns from pt's daughter. Eye Contact:: Good Motor Activity:: Appropriate Appearance:: Casual Speech:: Appropriate Mood:: Dysthymic Affect:: Congruent Thoughts:: Linear, Logical, No evidence of hallucinations/delusions noted Staff Interventions:: Therapist elicited pt's current education and knowledge about what bipolar disorder. Therapist provided psychoeducation about bipolar disorder explaining in a developmentally appropriate manner about the common symptoms or behaviors someone with bipolar has in a manic, stable and depressed state. Therapist elicited pt's questions and concerns. Therpaist facilitated discussion between pt and pt's daughter about what pt's daughter can do if concerned about her dad (pt). Provided validation and active listening throughout. Client Response:: Pt responded well to session encouraging his daughter to ask questions and express concerns. Pt's daughter stated she has noticed pt when he is in a depressed state because he doesn't smile as much, doesn't want to play with her as much, and it seems like something is wrong. Pt's daughter stated she can't think of a time she has seen pt in a manic state, but does like it wh en he seems happy. Pt's daughter reported she gets sad when she asks pt was is wrong, but he says I'm fine. Pt agreeable to communicate more openly with his daughter. Pt's daughter expressed understanding that her dad doesn't need to tell her details of what is bothering him, but can be more honest about his mood. Pt and pt's daughter expressed better understanding of Time Stopped:: 13:15
== END 2018-10-03 23:59 ==
LOC: BHIOP 09:00
PROVIDERS: Family Provider Internal Medicine; PCP Internal Medicine; Referring Provider Psychiatry & Neurology Psychiatry; Visit Provider Psychiatry & Neurology Psychiatry
DX: F31.9 Bipolar disorder, unspecified (principal); F41.8 Other specified anxiety disorders; Z72.89 Other problems related to lifestyle
CPT/HCPCS: H0035; 90834; 90837; 90847; 90853

== ENCOUNTER 2018-10-04 09:00 | Outpatient (RCR) | payer MEDICARE, SELFPAY ==
[2018-09-15 13:07] VITALS: BMI 41.9
--- NOTE | 2018-10-04 10:22 | BH.SGPN.GN ---
Behaviors/Verbalizations/Mental Status: []Client alert and oriented, casually dressed and groomed. Eye contact fair. Motor activity appropriate. Speech within normal limits. Affect constricted, mood depressed. Thoughts linear, logical, no signs of hallucinations or delusions. Client Response/Progress/Benefit: []Client responded well to session, quiet, but engaged in the activity. Client appeared to connect with the quote as he shared ?you blow up if you don?t manage emotions.? Client nonverbally agreed with peers that being able to cope with emotions in healthy ways prevents self-sabotage and can help improve relationships. Client stated shutting down can impact one?s ability to communicate in a stressful situation. Client reported the benefit of being able to communicate during stressful situations is preventing further issues from happening. Client participated in the activity and did well to manage his emotions and provide clear communication. Client appeared to benefit from increasing awareness how emotions can impact communication and the benefits of being able to regulate emotions. Progress continues to be variable as client has reported improved mood at times, but currently feels more depressed and struggles to maintain stability.
--- NOTE | 2018-10-04 11:20 | BH.SGPN.GN ---
Behaviors/Verbalizations/Mental Status: [] Eye contact is good. Motor activity is appropriate. Appearance is casual. Speech is Appropriate. Mood is depressed. Affect is flat. Thoughts are linear and logical. No evidence of psychosis. Client Response/Progress/Benefit: [] Pt was an active participant in group discussion and activity. Attentive during psychoeducation on 4 zones of regulation. Pt able to identify how he feels in each zone as well as how he acts in each zone. Also able to identify strategies to incorporate to support himself in each zone which included; utilizing opposite actions, physical activity, non-depressing music, grounding exercises, breathing, and sleep. Benefited from group from increased education on zones of regulation or stages of alertness for emotions and healthy coping skills to use for each zone. Narrative Note: []
--- NOTE | 2018-10-06 09:03 | BH.SGPN.GN ---
Behaviors/Verbalizations/Mental Status: []Client alert and oriented, casually dressed and groomed. Eye contact good. Motor activity slowed. Speech within normal limits. Affect flat, mood depressed, fatigued. Thoughts linear, logical, no signs of hallucinations or delusions. Reviewed client?s symptom tracker, no risk for suicidal ideation, plan, or intent as of 10/06/18. Client Response/Progress/Benefit: []Client responded somewhat well to session, withdrawn, but receptive to peer support. Client reports feeling ?physically and mentally down? today. Client shared he is not sure why he is feeling down today. With further exploration, client connected that he is feeling lonely and ?doesn?t know anyone? where he lives. Client had a difficult time identifying a mental health positive. With group elicitation, client stated coming to group today was a mental health win as he could have isolated. Client appeared to benefit from connecting with peers and receiving supportive feedback. Progress continues to be limited as client reports ongoing mood instability. Client continues to report medication noncompliance which could be impacting his ability to make progress.
--- NOTE | 2018-10-06 10:07 | BH.SGPN.GN ---
Behaviors/Verbalizations/Mental Status: [Client eye contact good, grooming and attire casual, motor activity WNL, speech normal rate and tone - minimal input provided, mood depressed - appearing disconnected at times, constricted affect, thoughts linear and intact, no evidence of delusions or hallucinations] Client Response/Progress/Benefit: [Pt receptive of session, attentive to discussion AEB good eye contact and willingness to provide self-reflection when prompted. Outside of being prompted for input, Pt struggled to verbally engage. providing input throughout. Reflected upon the quote and nodding throughout discussion on what impacts personal decision making in daily life. He appeared to benefit from group discussion regarding ?Chapters of My Life? poem and noted increased insight regarding his own mental health progress and use of denial. Went on to reflect that when he previously had this group he believed he was in Chapter 5 of his life but since has realized that he may have been denying where he really was and minimizing his symptoms. Pt shared that he is currently in between Chapter 2 & 3 as he has accepted that ?It is definitely my fault? but continues to fall into the habit of denying or ignoring his symptoms warning him of changes in mood state. Pt reports of improved insight indicated progress in treatment and increased understanding of how his own behaviors are impacting his mental health progress and stability. Recommended continued tx to continue to increase insight and promote change behaviors, reduce depression, and prevent decompensating] Narrative Note: []
--- NOTE | 2018-10-06 11:15 | BH.SGPN.GN ---
Behaviors/Verbalizations/Mental Status: [] Eye contact is good. Motor activity is appropriate. Appearance is casual. Speech is Appropriate. Mood is depressed. Affect is flat. Thoughts are linear and logical. No evidence of psychosis. Client Response/Progress/Benefit: [] Pt was an active participant in group activity and discussion. Participated in group discussion about what helps people move through the chapters of their life. Completed that WDEP (wants, Doing, Evaluate, Plan) Worksheet and discussed with peers in small groups. Identified a want as To be happy and not continue to backslide, identified things that he is doing in regards to that want which include; sleeping more, negative coping skills, and feeling shitty. He evaluated what he is doing stating that currently he is not doing skills which will help him reach his want or goal. Discussed plan to change coping skills, and decrease isolation to help him get back on track to meet want or goal. Benefited from group as she was able to identify personal steps he is doing to accomplish his want or goal. Narrative Note: []
--- NOTE | 2018-10-07 09:18 | BH.COMM ---
Communication Note - Communication with Client Communication Note: Pt cancelled attending IOP due to car not starting. Pt will contact this information writer when knows when he can attend IOP next.
--- NOTE | 2018-10-07 09:19 | BH.COMM_ITS ---
Communication Note - Communication with Client Communication Note: Pt cancelled attending IOP due to car not starting. Pt will contact this auto service writer when knows when he can attend IOP next.
--- NOTE | 2018-10-22 10:00 | BH.AFTERPLAN ---
Aftercare Plan - Demographics Treatment End Date:: 10/22/18 Psychiatrist:: Kaz Quintana Psychiatrist Office #:: [phone] [facility] Therapist:: Marjan Umana Therapist Phone #:: [phone] - Medications Home Medications: Home Medications omeprazole 40 mg capsule,delayed release 40 mg PO BID #60 cap 08/19/18 [place] Carbonate 300 mg PO QHS 10/15/18 - Plan Details Progress/Aftercare Plan Details:: You have made progress with increased awareness of symptoms and warning signs for both manic and depressive symptoms. You are following through with exercising several times a week. You have faced a significant stressor with car issues and were able to manage your emotions effectively so you could problem solve and get the help needed. You are completing daily responsibilities even on days you don't want to do anything. 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 Strategies for Success:: 1. Follow through with individual counseling. 2. Continue to exercise/lift. 3. Continue daily mood tracking being aware of warning signs or patterns in mood. 4. Utilize healthy skills or reach out for help when notice warning signs for depressive episode or hypomania/shawn. 5. 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 6. Refer back to [facility] binder to review skills and strategies learned. - Appointments Appointments/Referrals to Other Services:: 1. Counseling appointment at [facility] on 10/26/18 at 4pm. 2. If choose to explore medications you can either call: [facility] in [place], [place] at OR call [facility] in [place], [place] .
--- NOTE | 2018-10-22 10:20 | BH.IGGP_ITS ---
Aftercare Plan - Demographics Treatment End Date:: 10/22/18 Psychiatrist:: Kaz Quintana Psychiatrist Office #:: [phone] [facility] [place] Therapist:: Marjan Umana Therapist Phone #:: [phone] - Medications Home Medications: Home Medications omeprazole 40 mg capsule,delayed release 40 mg PO BID #60 cap 08/19/18 [place] Carbonate 300 mg PO QHS 10/15/18 - Plan Details Progress/Aftercare Plan Details:: You have made progress with increased awareness of symptoms and warning signs for both manic and depressive symptoms. You are following through with exercising several times a week. You have faced a significant stressor with car issues and were able to manage your emotions effectively so you could problem solve and get the help needed. You are completing daily responsibilities even on days you don't want to do anything. Aftercare plan is for you to continue individual counseling at [facility], continue attending meetings with [facility] [employer], volunteer at your [facility], and establish with psychiatry if medications are something you choose to explore. Strategies for Success:: 1. Follow through with individual counseling. 2. Continue to exercise/lift. 3. Continue daily mood tracking being aware of warning signs or patterns in mood. 4. Utilize healthy skills or reach out for help when notice warning signs for depressive episode or hypomania/shawn. 5. Follow through with volunteering through your [facility] - it will help motivate you to get out of your house and gives you opportunity to give back. 6. Refer back to [facility] binder to review skills and strategies learned. - Appointments Appointments/Referrals to Other Services:: 1. Counseling appointment at [facility] on 10/26/18 at 4pm. 2. If choose to explore medications you can either call: [facility] in [place], [place] at OR call [facility] in [place], [place] .
--- NOTE | 2018-10-22 10:30 | BH.SGPN.GN ---
Behaviors/Verbalizations/Mental Status: []Client alert and oriented, neatly dressed and groomed. Eye contact good. Motor activity appropriate. Speech within normal limits. Affect constricted, mood anxious. Thoughts linear, logical, no signs of hallucinations or delusions. Client Response/Progress/Benefit: []Client responded somewhat well to session, quiet, passive participant. Client did not engage in discussion of quote or topic of personal pitfalls. However, appeared to connect with the topic of personal pitfalls and how they can prevent mental health progress as shown by his nonverbals. Client nodded at the group?s examples of barriers that keep people from mental health progress. Client participated in the group activity. Client was quiet, but receptive to feedback from peers. Client appeared to benefit from increasing self-awareness of the barriers that keep people from making progress. Client?s last day in IOP. Client?s limited progress in IOP may be due to client?s medication noncompliance and self-report of inconsistent coping skills. ]
--- NOTE | 2018-10-22 13:10 | PCM.PN.BLA ---
Progress Note Chief Complaint: The patient is a 43-year old male who is an active participant in the intensive outpatient mental health treatment program at [facility]. He has a history of bipolar disorder, alcohol use disorder, and anxiety. History of Present Illness: The patient is graduating from the intensive outpatient program. He did think that the groups were helpful. He does say that he has been feeling depressed for the past 4 or 5 weeks. There have been some stresses in his life. He has had car issues which have made it difficult to drive. He never started lithium because of feared side effects. He does not wish to take lithium. He prefers to start on an antidepressant, and see how that goes. He does complain of loneliness in his life. He has nobody but his children to keep him company in life. Denies recent drinking, saying that he has had only one drink over the past few months. There has been some mild stress and anxiety because of situational factors. Current Psychiatric Medications: None Review of Systems: Psychiatry: No manic or hypomanic symptoms for some time. Recent depression as per HPI. He is not suicidal. There is no psychosis. He is cognitively intact. Constitutional: He is overweight and his weight has been steady. His energy level is fair. Mental Status Examination: The patient presents as a pleasant, cordial male of obese build who is casually dressed and neatly groomed. His thoughts are logical and coherent. He reports ongoing symptoms of depression as per HPI. He is not manic. There is no psychosis. He is cognitively intact. Diagnoses: [] [place] I: Bipolar disorder, current episode depressed me: Alcohol use disorder in early remission [place] II: Some eccentric personality traits [place] III: Hypertension, GERD Plan: I am prescribing Prozac 10 mg daily. I have warned the patient about possibly switching to a manic state on antidepressant medication. He is ending participation in the intensive outpatient groups. I will be seeing him for follow-up in my [place] office.
--- NOTE | 2018-10-22 13:20 | PN_ITS ---
Progress Note Chief Complaint: The patient is a 43-year old male who is an active participant in the intensive outpatient mental health treatment program at [facility]. He has a history of bipolar disorder, alcohol use disorder, and anxiety. History of Present Illness: The patient is graduating from the intensive outpatient program. He did think that the groups were helpful. He does say that he has been feeling depressed for the past 4 or 5 weeks. There have been some stresses in his life. He has had car issues which have made it difficult to drive. He never started lithium because of feared side effects. He does not wish to take lithium. He prefers to start on an antidepressant, and see how that goes. He does complain of loneliness in his life. He has nobody but his children to keep him company in life. Denies recent drinking, saying that he has had only one drink over the past few months. There has been some mild stress and anxiety because of situational factors. Current Psychiatric Medications: None Review of Systems: Psychiatry: No manic or hypomanic symptoms for some time. Recent depression as per HPI. He is not suicidal. There is no psychosis. He is cognitively intact. Constitutional: He is overweight and his weight has been steady. His energy level is fair. Mental Status Examination: The patient presents as a pleasant, cordial male of obese build who is casually dressed and neatly groomed. His thoughts are logical and coherent. He reports ongoing symptoms of depression as per HPI. He is not manic. There is no psychosis. He is cognitively intact. Diagnoses: [] [place] I: Bipolar disorder, current episode depressed me: Alcohol use disorder in early remission [place] II: Some eccentric personality traits [place] III: Hypertension, GERD Plan: I am prescribing Prozac 10 mg daily. I have warned the patient about possibly switching to a manic state on antidepressant medication. He is ending participation in the intensive outpatient groups. I will be seeing him for follow-up in my [place] office.
--- NOTE | 2018-10-22 14:06 | BH.MDN ---
Multi-Disciplinary Note - Note 30-min Individual Time Started:: 09:15 Date: 10/22/18 Purpose of session/treatment goals addressed:: Purpose of session was to assess pt's current symptoms and stressors. Other topics included: reviewing treatment progress, identifying strategies to continue progress, and solidify aftercare plan. Eye Contact:: Good Motor Activity:: Appropriate Appearance:: Casual Speech:: Appropriate Mood:: Euthymic Affect:: Congruent Thoughts:: Linear, Logical, No evidence of hallucinations/delusions noted Staff Interventions:: Therapist used open ended questions to elicit pt's current symptoms and stressors. Therapist inquired pt's thoughts about treatment progress since starting IOP. Therapist assisted pt with identifying strategies to maintain progress. Therapist solidified pt's aftercare plan for follow up care. Provided support by using active listening and validating emotions. Client Response:: Pt reported the past 2 weeks have had ups and downs. Pt stated his car problems has been a significant stressor that kept him from attending IOP and getting out of the house very often. Pt stated despite stressor he was able to continue with exercise, complete daily home responsiblities/chores, spent time with kids, and attended [facility]. Pt shared he has noticed depressive symptoms with increased desire to sleep and having to force himself to leave the house. Pt reported he is willing to explore taking an antidepressant because believes depression impacts his functioning more than shawn. Pt noted progress with following through with healthy skills especially the 2 weeks he couldn't attend IOP. Pt stated he has also progressed with getting out of his house, being social at [facility], signing up to volunteer at [facility], and exercising. Pt shared to maintain progress strategies that can help him include: following through with counseling, continuing to exercise, continue mood tracking looking for patterns and warning signs, volunteering and being social. Pt stated he plans to follow up with counseling at [facility] next week. Pt reported he has not scheduled with psychiatrist yet, but will do so when is willing to take medications. Risks/Concerns:: Pt denies suicidal ideation, plan or intention to date. Progress Toward Goals/Plan:: Pt has progressed with showing increased emotional regulation as shown by pt's ability to manage emotions when faced with signficiant stressor of car issues ove the past 2 weeks. Pt took intiative to find assistance for the cost of car problems, which shows progress compared to when first started IOP. Pt has increased awareness of warning signs of depressed state, but continues to lack follow through with utilizing healthy skills to stablize mood. Pt's progress has been limited due to pt's medication noncomplance and sporadic traetment attendance. Pt is to discharge from IOP level of care today and is encouraged to follow up with counseling and psychiatry. Time Stopped:: 09:45
--- NOTE | 2018-10-22 14:47 | BH.DS ---
Discharge Summary - Demographics Date of Admission:: 08/23/18 Discharge Date: 10/22/18 Presenting Problems at Admission:: Patient is a 43-year old male who was referred to [facility] by his primary care doctor for recent depressed mood and mood instability. Pt has had periods of significant elevated moods and also depressed moods. In elevated moods patient endorsed rapid speech, hyperactivity, becomes agitated and is hyper yarsani. During pt's low periods he is very depressed, is more anxious has difficulty functioning. Pt stated stated prior to admission he was experiencing depressed mood and severe anxiety. At admission pt appeared to be in a hypomanic state as evidenced by rapid speech, increased energy, less need for sleep, and on a cleanse for yarsani reasons. Discharge Diagnoses:: F31.3 Bipolar disorder, current episode depressed; Alcohol use disorder in early remission Reason for Discharge:: Pt has made some treatment progress and seems to have received his maximum gain from [facility] level of care and verbalized readiness to discharge from [facility] level of care. - Treatment Progress During Treatment & Response: Pt has made progress with decrease in anxious and manic symptoms as evidenced by self-report scores on DSM 5 cross cutting measure. At admission pt scored a 4/8, with 8 representing severe, on shawn subscale and at discharge pt scored a 0/4 which represents signficiant reduction in manic symptoms. AT admission pt scored a 8/12, with 12 representing severe, on anxiety subscale and at discharge pt scored a 4/12 which represents reduction in anxious symptoms. Pt's depressive symptoms maintained the same score from admission to discharge with score of 6/8. Pt demonstrated progress with increased awareness of symptoms and warning signs for both manic and depressive symptoms. Pt has been following through with exercising several times a week. While in the program pt faced a significant stressor with car issues and was able to manage his emotions and problem solve effectively. Pt's [facility] attendance was variable throughout treatment. When pt attended he was often a passive participant appearing to listen and connect with others, but did not provide input often during group discussions. Pt's follow through with homework was also variable throughout treatment. While in program pt did not want to take a mood stabilizer, which could have been barrier to progress with mood stabilization. Issues Still to be Addressed:: Pt could benefit from continued focus on identifying and challenge distorted thoughts. Pt also would benefit from increase social network to decrease isolative behaviors. Increasing awareness of warning signs for both manic and depressive symptoms and identifying skills that can help manage both mood states. Discharge Recommendations/Instructions:: 1. Counseling appointment at [facility] on 10/26/18 at 4pm. 2. If pt decides to explore medications he is recommended to either call: [facility] in [place], [place] at OR call [facility] in [place], [place] . Discharge Handout: Complete Discharge Handout with client on aftercare options and continuity of care.
--- NOTE | 2018-10-23 14:13 | BH.MDN_ITS ---
Multi-Disciplinary Note - Note 30-min Individual Time Started:: 09:15 Date: 10/22/18 Purpose of session/treatment goals addressed:: Purpose of session was to assess pt's current symptoms and stressors. Other topics included: reviewing treatment progress, identifying strategies to continue progress, and solidify aftercare plan. Eye Contact:: Good Motor Activity:: Appropriate Appearance:: Casual Speech:: Appropriate Mood:: Euthymic Affect:: Congruent Thoughts:: Linear, Logical, No evidence of hallucinations/delusions noted Staff Interventions:: Therapist used open ended questions to elicit pt's current symptoms and stressors. Therapist inquired pt's thoughts about treatment progress since starting IOP. Therapist assisted pt with identifying strategies to maintain progress. Therapist solidified pt's aftercare plan for follow up care. Provided support by using active listening and validating emotions. Client Response:: Pt reported the past 2 weeks have had ups and downs. Pt stated his car problems has been a significant stressor that kept him from attending IOP and getting out of the house very often. Pt stated despite stressor he was able to continue with exercise, complete daily home responsiblities/chores, spent time with kids, and attended [employer]. Pt shared he has noticed depressive symptoms with increased desire to sleep and having to force himself to leave the house. Pt reported he is willing to explore taking an antidepressant because believes depression impacts his functioning more than shawn. Pt noted progress with following through with healthy skills especially the 2 weeks he couldn't attend IOP. Pt stated he has also progressed with getting out of his house, being social at [employer], signing up to volunteer at [employer], and exercising. Pt shared to maintain progress strategies that can help him include: following through with counseling, continuing to exercise, continue mood tracking looking for patterns and warning signs, volunteering and being social. Pt stated he plans to follow up with counseling at [facility] next week. Pt reported he has not scheduled with psychiatrist yet, but will do so when is willing to take medications. Risks/Concerns:: Pt denies suicidal ideation, plan or intention to date. Progress Toward Goals/Plan:: Pt has progressed with showing increased emotional regulation as shown by pt's ability to manage emotions when faced with signficiant stressor of car issues ove the past 2 weeks. Pt took intiative to find assistance for the cost of car problems, which shows progress compared to when first started IOP. Pt has increased awareness of warning signs of depressed state, but continues to lack follow through with utilizing healthy skills to stablize mood. Pt's progress has been limited due to pt's medication noncomplance and sporadic traetment attendance. Pt is to discharge from IOP level of care today and is encouraged to follow up with counseling and psychiatry. Time Stopped:: 09:45
--- NOTE | 2018-12-16 14:48 | BH.DS_ITS ---
Discharge Summary - Demographics Date of Admission:: 08/23/18 Discharge Date: 10/22/18 Presenting Problems at Admission:: Patient is a 43-year old male who was referred to [facility] by his primary care doctor for recent depressed mood and mood instability. Pt has had periods of significant elevated moods and also depressed moods. In elevated moods patient endorsed rapid speech, hyperactivity, becomes agitated and is hyper taoist. During pt's low periods he is very depressed, is more anxious has difficulty functioning. Pt stated stated prior to admission he was experiencing depressed mood and severe anxiety. At admission pt appeared to be in a hypomanic state as evidenced by rapid speech, increased energy, less need for sleep, and on a cleanse for taoist reasons. Discharge Diagnoses:: F31.3 Bipolar disorder, current episode depressed; Alcohol use disorder in early remission Reason for Discharge:: Pt has made some treatment progress and seems to have received his maximum gain from [facility] level of care and verbalized readiness to discharge from [facility] level of care. - Treatment Progress During Treatment & Response: Pt has made progress with decrease in anxious and manic symptoms as evidenced by self-report scores on DSM 5 cross cutting measure. At admission pt scored a 4/8, with 8 representing severe, on shawn subscale and at discharge pt scored a 0/4 which represents signficiant reduction in manic symptoms. AT admission pt scored a 8/12, with 12 representing severe, on anxiety subscale and at discharge pt scored a 4/12 which represents reduction in anxious symptoms. Pt's depressive symptoms maintained the same score from admission to discharge with score of 6/8. Pt demonstrated progress with increased awareness of symptoms and warning signs for both manic and depressive symptoms. Pt has been following through with exercising several times a week. While in the program pt faced a significant stressor with car issues and was able to manage his emotions and problem solve effectively. Pt's [facility] attendance was variable throughout treatment. When pt attended he was often a passive participant appearing to listen and connect with others, but did not provide input often during group discussions. Pt's follow through with homework was also variable throughout treatment. While in program pt did not want to take a mood stabilizer, which could have been barrier to progress with mood stabilization. Issues Still to be Addressed:: Pt could benefit from continued focus on identifying and challenge distorted thoughts. Pt also would benefit from increase social network to decrease isolative behaviors. Increasing awareness of warning signs for both manic and depressive symptoms and identifying skills that can help manage both mood states. Discharge Recommendations/Instructions:: 1. Counseling appointment at [facility] on 10/26/18 at 4pm. 2. If pt decides to explore medications he is recommended to either call: [facility] in [place], [place] at OR call [facility] in [place], [place] . Discharge Handout: Complete Discharge Handout with client on aftercare options and continuity of care.
== END 2018-11-02 23:59 ==
LOC: BHIOP 09:00
PROVIDERS: Family Provider Internal Medicine; PCP Internal Medicine; Referring Provider Psychiatry & Neurology Psychiatry; Visit Provider Psychiatry & Neurology Psychiatry
DX: F31.9 Bipolar disorder, unspecified (principal); Z72.89 Other problems related to lifestyle; I10 Essential (primary) hypertension; K21.9 Gastro-esophageal reflux disease without esophagitis
CPT/HCPCS: H0035; 90853

== ENCOUNTER → 2020-02-08 12:02 | Outpatient (CLI) | payer MEDICARE, MEDICAID, SELFPAY ==
[2020-02-08 11:16] VITALS: BMI 38.8
[2020-02-08 12:12] LABS: Bacteria 0 SEEN /hpf (None Seen); Mucous, Urine 0 SEEN /hpf (<or=2+); Red Blood Cells-Urine 0 SEEN /hpf (0-5); Squamous Epithelial Cells - UA 0 SEEN /hpf (0-5); White Blood Cells 0 SEEN /hpf (0-5)
[2020-02-08 15:04] LABS: Absolute Lymphocyte Count 1.51 X10^3/uL (0.83-4.51); Absolute Neutrophil Count 7.2 X10^3/uL (2.0-7.7); Basophil# 0.04 X10^3/uL; Basophil% 0.4 % (0-1); Eosinophil# 0.18 X10^3/uL; Eosinophils% 1.9 % (0-5); Hematocrit 46.7 % (40-54); Hemoglobin 16.1 g/dL (13.0-16.5); Lymphocyte # 1.51 X10^3/ul (4.0); Lymphocyte % 15.6 % (19-41); Mean Corp Hgb Conc 34.5 g/dL (32-36); Mean Corpuscular Hgb 32.6 pg (27.0-32.0); Mean Corpuscular Volume 94.5 fL (80-94); Mean Platelet Vol. 10.8 fl (6.2-12.0); Monocyte# 0.74 X10^3/uL; Monocyte% 7.6 % (0-10); NRBC Flagged by Analyzer 0 % (0-5); Neutrophil # 7.16 X10^3/uL (2.7-7.7); Platelet Count 191 K/mm3 (150-450); RBC Distribution Width CV 12.3 % (11.6-14.6); RBC Distribution Width SD 42.1 fl (35.1-43.9); Red Blood Count 4.94 M/mm3 (4.6-6.2); White Blood Count 9.7 K/mm3 (4.4-11.0)
[2020-02-08 15:13] LABS: Color, Urine Yellow (Yellow); Glucose, Dipstick Normal (Normal); Ketone-Dipstick 15 mg/dl (Negative); Leukocyte Esterase-Dipstick Negative /ul (Negative); Nitrite-Dipstick Negative (Negative); Occult Blood-Urine Negative /ul (Negative); Protein-Dipstick Negative (Negative); Urine Bilirubin Dipstick Negative (Negative); Urine Clarity Clear (Clear); Urine Urobilinogen Normal (Normal); Urine pH 6.5 (5.0 - 8.0)
[2020-02-08 15:40] LABS: AST(SGOT) 118 U/L (15-37); Alanine Aminotransfer ALT/SGPT 142 U/L (16-61); Albumin, Serum 4.4 g/dL (3.2-5.0); Alkaline Phosphatase 102 U/L (45-117); Anion Gap 10 (5-15); BUN 13 mg/dL (7-18); BUN/Creat Ratio 14.7 RATIO (10-20); Calcium,Total 9.3 mg/dL (8.5-10.1); Chloride 105 mmol/L (98-107); Cholesterol 220 mg/dL (200); Creatinine, Serum 0.88 mg/dL (0.70-1.30); EST Glomerular Filtration Rate 100 mL/min (>60); Est Glom Filt Rate - Afr Amer 121 mL/min (>60); Globulin 4.6 g/dL (2.2-4.2); Glucose 89 mg/dL (74-106); High Density Lipoprotein 46 mg/dL; Potassium 3.9 mmol/L (3.5-5.1); Sodium Level 135 mmol/L (136-145); Thyroid Stim Hormone (TSH) 1.94 uIU/mL (0.358-3.74); Triglycerides 106 mg/dL; Very Low Density Lipoprotein 21 mg/dL (5-40)
[2020-02-09 10:00] LABS: Hepatitis B Surface Antigen Non-Reactive (Nonreactive); Hepatitis C Antibody Non-Reactive (Nonreactive)
== END ==
PROVIDERS: PCP Internal Medicine; Referring Provider Nurse Practitioner Family; Visit Provider Nurse Practitioner Family
DX: F31.9 Bipolar disorder, unspecified (principal); F41.9 Anxiety disorder, unspecified; I10 Essential (primary) hypertension; R79.89 Other specified abnormal findings of blood chemistry
CPT/HCPCS: 36415; 80053; 80061; 81001; 84443; 85025; 86803; 87340

== ENCOUNTER → 2020-08-15 15:34 | Outpatient (CLI) | payer MEDICARE, MEDICAID, SELFPAY ==
[2020-08-15 08:57] VITALS: BMI 38.8
[2020-08-15 17:25] LABS: Absolute Lymphocyte Count 1.59 X10^3/uL (0.83-4.51); Absolute Neutrophil Count 7.9 X10^3/uL (2.0-7.7); Basophil# 0.04 X10^3/uL; Basophil% 0.4 % (0-1); Eosinophils% 0.9 % (0-5); Hematocrit 46.2 % (40-54); Hemoglobin 15.8 g/dL (13.0-16.5); Lymphocyte # 1.59 X10^3/ul (4.0); Lymphocyte % 14.9 % (19-41); Mean Corp Hgb Conc 34.2 g/dL (32-36); Mean Corpuscular Hgb 30.9 pg (27.0-32.0); Mean Corpuscular Volume 90.4 fL (80-94); Mean Platelet Vol. 10.6 fl (6.2-12.0); Monocyte# 0.96 X10^3/uL; NRBC Flagged by Analyzer 0 % (0-5); Neutrophil # 7.89 X10^3/uL (2.7-7.7); Neutrophil % 74.2 % (47-70); Platelet Count 221 K/mm3 (150-450); RBC Distribution Width CV 12.1 % (11.6-14.6); RBC Distribution Width SD 39.9 fl (35.1-43.9); Red Blood Count 5.11 M/mm3 (4.6-6.2); White Blood Count 10.6 K/mm3 (4.4-11.0)
[2020-08-15 18:01] LABS: ALB/GLOB Ratio 1.1 RATIO (0.9-2.4); AST(SGOT) 44 U/L (15-37); Alanine Aminotransfer ALT/SGPT 48 U/L (16-61); Albumin, Serum 4.7 g/dL (3.2-5.0); Alkaline Phosphatase 117 U/L (45-117); Anion Gap 10 (5-15); BUN 13 mg/dL (7-18); Calcium,Total 9.5 mg/dL (8.5-10.1); Chloride 99 mmol/L (98-107); Creatinine, Serum 1.08 mg/dL (0.70-1.30); EST Glomerular Filtration Rate 79 mL/min (>60); Est Glom Filt Rate - Afr Amer 96 mL/min (>60); Globulin 4.4 g/dL (2.2-4.2); Glucose 95 mg/dL (74-106); Potassium 4.2 mmol/L (3.5-5.1); Protein, Total 9.1 g/dL (6.4-8.2); Sodium Level 133 mmol/L (136-145); Thyroid Stim Hormone (TSH) 1.69 uIU/mL (0.358-3.74)
== END ==
PROVIDERS: PCP Internal Medicine; Referring Provider Nurse Practitioner Family; Visit Provider Nurse Practitioner Family
DX: I10 Essential (primary) hypertension (principal); F31.9 Bipolar disorder, unspecified; F41.9 Anxiety disorder, unspecified
CPT/HCPCS: 36415; 80053; 84443; 85025

== ENCOUNTER → 2020-08-23 09:44 | Outpatient (CLI) | payer MEDICARE, MEDICAID, SELFPAY ==
[2020-08-15 08:57] VITALS: BMI 38.8
[2020-08-23 12:21] LABS: Anion Gap 13 (5-15); BUN 15 mg/dL (7-18); BUN/Creat Ratio 14.6 RATIO (10-20); Calcium,Total 9.5 mg/dL (8.5-10.1); Chloride 91 mmol/L (98-107); Creatinine, Serum 1.03 mg/dL (0.70-1.30); EST Glomerular Filtration Rate 84 mL/min (>60); Est Glom Filt Rate - Afr Amer 101 mL/min (>60); Glucose 80 mg/dL (74-106); Potassium 4.1 mmol/L (3.5-5.1); Sodium Level 127 mmol/L (136-145)
== END ==
PROVIDERS: PCP Internal Medicine; Referring Provider Nurse Practitioner Family; Visit Provider Nurse Practitioner Family
DX: E66.9 Obesity, unspecified (principal); I10 Essential (primary) hypertension
CPT/HCPCS: 36415; 80048

== ENCOUNTER → 2020-09-03 14:52 | Outpatient (CLI) | payer MEDICARE, MEDICAID, SELFPAY ==
[2020-08-15 08:57] VITALS: BMI 38.8
[2020-09-03 18:10] LABS: Anion Gap 11 (5-15); BUN 20 mg/dL (7-18); BUN/Creat Ratio 19.2 RATIO (10-20); Calcium,Total 9.7 mg/dL (8.5-10.1); Chloride 106 mmol/L (98-107); Creatinine, Serum 1.04 mg/dL (0.70-1.30); EST Glomerular Filtration Rate 83 mL/min (>60); Est Glom Filt Rate - Afr Amer 100 mL/min (>60); Glucose 96 mg/dL (74-106); Potassium 3.8 mmol/L (3.5-5.1); Sodium Level 141 mmol/L (136-145)
== END ==
PROVIDERS: Nurse Practitioner Family; PCP Internal Medicine; Visit Provider Internal Medicine
DX: E87.1 Hypo-osmolality and hyponatremia (principal)
CPT/HCPCS: 36415; 80048

== ENCOUNTER → 2021-04-24 10:51 | Outpatient (CLI) | payer MEDICARE, MEDICAID, SELFPAY ==
[2021-04-24 12:24] LABS: AST(SGOT) 34 U/L (15-37); Alanine Aminotransfer ALT/SGPT 59 U/L (16-61); Albumin, Serum 4.3 g/dL (3.2-5.0); Alkaline Phosphatase 88 U/L (45-117); Anion Gap 8 (5-15); BUN 12 mg/dL (7-18); Calcium,Total 9.3 mg/dL (8.5-10.1); Chloride 103 mmol/L (98-107); Creatinine, Serum 1.09 mg/dL (0.70-1.30); EST Glomerular Filtration Rate 78 mL/min (>60); Est Glom Filt Rate - Afr Amer 95 mL/min (>60); Globulin 4.3 g/dL (2.2-4.2); Glucose 96 mg/dL (74-106); Potassium 4.1 mmol/L (3.5-5.1); Protein, Total 8.6 g/dL (6.4-8.2); Sodium Level 136 mmol/L (136-145); Thyroid Stim Hormone (TSH) 1.67 uIU/mL (0.358-3.74)
== END ==
PROVIDERS: PCP Internal Medicine; Referring Provider Nurse Practitioner Family; Visit Provider Nurse Practitioner Family
DX: I10 Essential (primary) hypertension (principal)
CPT/HCPCS: 36415; 80053; 84443

== ENCOUNTER 2021-09-16 22:38 | Emergency (ER) | payer MEDICARE, MEDICAID, SELFPAY ==
[2021-09-16 22:39] VITALS: BP 177/114; PULSE 117; RESP 18; TEMP 37.7; O2SAT 96; BMI 40.5
--- NOTE | 2021-09-16 23:01 | ED.RN ---
PATIENT FOUND CRAWLING ON THE FLOOR. PATIENT STATES I JUST HAVE TO TAKE A SHIT. PATIENT INSTRUCTED TO GET OFF THE FLOOR AND WE WILL HELP HIM TO BATHROOM. PATIENT STATES I JUST HAVE A LITTLE CARABALLO NUGGET, I'M GOOD. PATIENT THEN LAYS DOWN ON FLOOR. PATIENT HELPED UP OFF THE FLOOR AND ASSISTED TO RESTROOM.
--- NOTE | 2021-09-16 23:19 | EKG12_ITS ---
Test Reason : MENTAL HEALTH Blood Pressure : / mmHG Vent. Rate : 104 BPM Atrial Rate : 104 BPM P-R Int : 122 ms QRS Dur : 088 ms QT Int : 356 ms P-R-T Axes : 021 015 038 degrees QTc Int : 468 ms Sinus tachycardia Otherwise normal ECG Confirmed by AARON DARDEN, SISSY ([id number]), script editor JENN SINGH ([id number]) on 09/19/2021 9:13:36 AM Referred By: YOLI Confirmed By:SISSY WALKER MD
--- NOTE | 2021-09-17 00:10 | ED.RN ---
See paper charting d/t downtime.
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
[2021-09-17 06:42] LABS: BUN 15 mg/dL (7-18); BUN/Creat Ratio 14.2 RATIO (10-20); Creatinine, Serum 1.06 mg/dL (0.70-1.30); EST Glomerular Filtration Rate 81 mL/min (>60); Est Glom Filt Rate - Afr Amer 98 mL/min (>60); Estimated Creatinine Clearance 88.93 ml/min; Glucose 130 mg/dL (74-106)
[2021-09-17 06:44] LABS: Anion Gap 8 (5-15); Chloride 107 mmol/L (98-107); Potassium 3.6 mmol/L (3.5-5.1); Sodium Level 136 mmol/L (136-145)
[2021-09-17 07:13] LABS: Acetaminophen (Tylenol) Level < 2.0 ug/mL (10.0-30.0); Alcohol, Blood (Medical)-Serum < 3.0 mg/dL; Salicylate < 1.7 mg/dL (2.8-20.0)
[2021-09-17 07:29] LABS: Vista UDS pH Range 5
[2021-09-17 07:30] LABS: Amphetamine Urine VISTA NEGATIVE (<1000 ng/mL); Barbiturate Urine VISTA NEGATIVE (< 200 ng/mL); Benzodiazepine Urine VISTA NEGATIVE (< 200 ng/mL); Cocaine Urine VISTA NEGATIVE (< 300 ng/mL); Ecstacy Urine VISTA NEGATIVE (< 500 ng/mL); Methadone Urine VISTA NEGATIVE (< 300 ng/mL); PCP Urine VISTA NEGATIVE (< 25 ng/mL); THC Urine VISTA POSITIVE (< 50 ng/mL)
[2021-09-17 08:03] VITALS: BP 149/95; PULSE 100; RESP 18; O2SAT 96
[2021-09-17 08:07] LABS: Absolute Lymphocyte Count 1.85 X10^3/uL (0.83-4.51); Absolute Neutrophil Count 8.5 X10^3/uL (2.0-7.7); Basophil# 0.06 X10^3/uL; Basophil% 0.5 % (0-1); Eosinophil# 0.02 X10^3/uL; Eosinophils% 0.2 % (0-5); Hematocrit 46.2 % (40-54); Hemoglobin 16.4 g/dL (13.0-16.5); Lymphocyte # 1.85 X10^3/ul (0.83-4.51); Lymphocyte % 16.1 % (19-41); Mean Corp Hgb Conc 35.5 g/dL (32-36); Mean Corpuscular Hgb 31.2 pg (27.0-32.0); Mean Platelet Vol. 10.6 fl (6.2-12.0); Monocyte# 0.97 X10^3/uL; Monocyte% 8.5 % (0-10); NRBC Flagged by Analyzer 0 % (0-5); Neutrophil # 8.52 X10^3/uL (2.7-7.7); Neutrophil % 74.4 % (47-70); Platelet Count 288 K/mm3 (150-450); RBC Distribution Width CV 12.2 % (11.6-14.6); RBC Distribution Width SD 39.8 fl (35.1-43.9); Red Blood Count 5.25 M/mm3 (4.6-6.2); White Blood Count 11.5 K/mm3 (4.4-11.0)
--- NOTE | 2021-09-17 08:09 | ED.RN ---
see downtime charting for pt visit
== END 2021-09-17 08:36 | disposition home or self-care (01) ==
PROVIDERS: Emergency Provider Emergency Medicine; PCP Internal Medicine; Visit Provider Emergency Medicine
DX: F31.9 Bipolar disorder, unspecified (principal); F22 Delusional disorders; E66.9 Obesity, unspecified
CPT/HCPCS: 36415; 80048; 80307; 80329; 82077; 85025; 87811; 93005; 99284; 99285; G0480

== ENCOUNTER 2021-09-17 15:35 | Emergency (ER) | payer MEDICARE, MEDICAID, SELFPAY ==
[2021-09-17 15:36] VITALS: BP 148/118; PULSE 126; RESP 22; TEMP 37.2; O2SAT 95; BMI 39.6
[2021-09-17] MEDS: Ziprasidone IM 20 MG/ML VIAL IM (16:28)
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
[2021-09-17 17:59] LABS: Amphetamine Urine VISTA NEGATIVE (<1000 ng/mL); Barbiturate Urine VISTA NEGATIVE (< 200 ng/mL); Benzodiazepine Urine VISTA NEGATIVE (< 200 ng/mL); Cocaine Urine VISTA NEGATIVE (< 300 ng/mL); Ecstacy Urine VISTA NEGATIVE (< 500 ng/mL); Methadone Urine VISTA NEGATIVE (< 300 ng/mL); PCP Urine VISTA NEGATIVE (< 25 ng/mL); THC Urine VISTA POSITIVE (< 50 ng/mL); Vista UDS pH Range 5
[2021-09-17 18:28] LABS: Alcohol, Blood (Medical)-Serum < 3.0 mg/dL
--- NOTE | 2021-09-17 19:29 | CM.ED ---
Social Work Telephone call to [facility], No intensive open beds, and patient would meet intensive criteria. Telephone call to [place], [facility]. No open beds. Telephone call to [facility], no answer. Clinical information faxed. [facility] Clinical information faxed. PLAN: Inpatient psychiatric placement. Will continue to follow. Nandini SINGH, VANE
[2021-09-17 19:35] VITALS: RESP 17; O2SAT 97
[2021-09-17 20:35] VITALS: RESP 16
--- NOTE | 2021-09-17 20:48 | CM.ED ---
Social Work Telephone call from [facility], Patti. Patti reports that patient has been accepted by Dr. Nguyen to the [facility] Unit. Nurse to call report to [phone]. Telephone call to [facility], referral canceled. Updated medical team on above information. Telephone call to patient father Dino, Updated on patient disposition. Telephone call to patient brother Eric, Updated on patient disposition. Patient currently sleeping. Nursing to update patient on plan. PLAN: [facility]. Nandini SINGH, VANE
[2021-09-17 21:03] VITALS: BP 152/99; PULSE 99; RESP 20; TEMP 37.1; O2SAT 96
[2021-09-17 21:10] VITALS: BP 152/98; PULSE 20; RESP 19; TEMP 37.2; O2SAT 97
[2021-09-17 23:02] VITALS: RESP 19
== END 2021-09-17 23:02 ==
PROVIDERS: Emergency Provider Emergency Medicine; PCP Internal Medicine; Visit Provider Emergency Medicine
DX: F23 Brief psychotic disorder (principal); E66.9 Obesity, unspecified
CPT/HCPCS: 36415; 80307; 82077; 99285; P9612

== ENCOUNTER → 2021-11-28 | Outpatient (CLI) | payer MEDICARE, MEDICAID, SELFPAY ==
[2021-11-28 15:03] LABS: Absolute Lymphocyte Count 1.78 X10^3/uL (0.83-4.51); Absolute Neutrophil Count 3.7 X10^3/uL (2.0-7.7); Basophil# 0.04 X10^3/uL; Basophil% 0.6 % (0-1); Eosinophil# 0.15 X10^3/uL; Eosinophils% 2.4 % (0-5); Hematocrit 41.6 % (40-54); Hemoglobin 14.5 g/dL (13.0-16.5); Lymphocyte # 1.78 X10^3/ul (0.83-4.51); Lymphocyte % 28.5 % (19-41); Mean Corp Hgb Conc 34.9 g/dL (32-36); Mean Corpuscular Hgb 31.1 pg (27.0-32.0); Mean Corpuscular Volume 89.3 fL (80-94); Mean Platelet Vol. 10.8 fl (6.2-12.0); NRBC Flagged by Analyzer 0 % (0-5); Neutrophil # 3.73 X10^3/uL (2.7-7.7); Neutrophil % 59.9 % (47-70); Platelet Count 235 K/mm3 (150-450); RBC Distribution Width CV 12.4 % (11.6-14.6); RBC Distribution Width SD 40.4 fl (35.1-43.9); Red Blood Count 4.66 M/mm3 (4.6-6.2); White Blood Count 6.2 K/mm3 (4.4-11.0)
[2021-11-28 15:39] LABS: Thyroid Stim Hormone (TSH) 1.88 uIU/mL (0.358-3.74)
== END | disposition home or self-care (01) ==
LOC: BIMLAB 11:39
PROVIDERS: PCP Internal Medicine; Referring Provider Nurse Practitioner Family; Visit Provider Nurse Practitioner Family
DX: I10 Essential (primary) hypertension (principal)
CPT/HCPCS: 36415; 84443; 85025

== ENCOUNTER 2021-12-16 09:00 | Outpatient (RCR) | payer MEDICARE, MEDICAID, SELFPAY ==
--- NOTE | 2021-12-16 09:00 | BH.COMM ---
Communication Note - Communication with Client Communication Note: Completed initial paperwork. No significant changes since pre-admission intake. Completed [place] Suicide Screening with low risk. Case discussed with Dr. Correa with plan to admit to [facility] level of care with dx of F31.2, Bipolar
--- NOTE | 2021-12-16 09:00 | BH.SGPN.GN ---
Behaviors/Verbalizations/Mental Status: []Pt alert and oriented, neatly dressed and groomed. Eye contact fair. Motor activity restless. Speech within normal limits. Affect constricted, mood anxious. Thoughts linear, logical, no signs of hallucinations or delusions. Reviewed pt?s symptom tracker, no risk for suicidal ideation, plan, or intent as of 12/16/21 Client Response/Progress/Benefit: [] Pt responded somewhat well to session, pt had to leave session for a brief period due to high anxiety, but pt returned to group. Pt shared that being in a group triggers anxiety as it reminds pt of his hospitalization. Pt shared he is in IOP because he wants to keep shared custody for his kids. Pt reports feeling confused why he is in this position as pt felt like he was in a really good place prior to his hospitalization. Pt appeared to benefit from group support. Pt will continue IOP tx to prevent decompensation, monitor medications, and increase insight to symptoms. Narrative Note: []
--- NOTE | 2021-12-16 10:00 | BH.SGPN.GN ---
Behaviors/Verbalizations/Mental Status: [] Eye contact is good. Motor activity is appropriate. Appearance is casual. Speech is Appropriate. Mood is anxious. Affect is congruent. Thoughts are linear and logical. No evidence of psychosis. Client Response/Progress/Benefit: [] Pt was quiet during interactive group discussions however was attentive during psychoeducation on the six types of boundaries (physical, emotional, intellectual, sexual, time, and material) AEB note-taking. Also attentive while peers worked together on defining what a boundary is in mental health, challenges to setting boundaries and benefits to setting boundaries. Group discussed the mental health benefits to establishing boundaries at work, school, and home and pt was attentive as well AEB by note-taking. Pt benefited from increased awareness and insight on the importance/benefit to setting health boundaries. Will continue in IOP to prevent decompensation, stabilize mood, and increase healthy coping strategies. Narrative Note: []
--- NOTE | 2021-12-16 11:05 | BH.SGPN.GN ---
Behaviors/Verbalizations/Mental Status: []Client alert and oriented, casually dressed and appropriately groomed. Eye contact good. Motor activity WNL.? Speech within normal limits. Affect constricted, mood anxious, depressed, irritable. Thoughts linear and intact. no signs of delusions or hallucinations. Client Response/Progress/Benefit: []Client first day in IOP tx, responded well to session AEB listening attentively to peers and taking notes throughout. Client contributed throughout psychoeducation on different boundary setting styles. Reports connecting most with porous and rigid styles of boundary setting depending upon the environment. Participated in small group discussion brainstorming various strategies for improving healthy boundary setting. Client reports wanting to begin using skill of starting to more proactively advocate for himself and his boundaries to establish and maintain healthier boundaries. Seemed to benefit from increased awareness of how different boundary styles can impact mental health. Will continue IOP tx to increase consistent application of skills, increase self-care and mood management, and prevent decompensation. Narrative Note: []
--- NOTE | 2021-12-18 09:04 | BH.SGPN.GN ---
Behaviors/Verbalizations/Mental Status: []Pt alert and oriented, casually dressed and groomed. Eye contact good. Motor activity appropriate. Speech within normal limits. Affect constricted, mood anxious and depressed. Thoughts linear, logical, no signs of hallucinations or delusions. Reviewed pt?s symptom tracker, no risk for suicidal ideation, plan, or intent as of 12/18/21 Client Response/Progress/Benefit: []Pt responded well to session, attentive and receptive to feedback. Pt reports feeling anxious this morning as pt has been struggling with his mental health lately and feels his has been withholding his visitation with his children as a result. Discussed having an upcoming court hearing to address this and is worried about the outcome. Shared trying to stay focused on what is in his control has been helpful and is hoping that IOP tx will aid in improving his mindset as well. Receptive of and appearing to benefit from supportive feedback and encouragement provided. Will continue IOP tx to promote mood stability and use of healthy coping skills, as well as prevent decompensation. Narrative Note: []
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
[2021-12-18 12:16] VITALS: BP 186/122; PULSE 69
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
--- NOTE | 2021-12-18 13:23 | BH.DR.ITP ---
Initial Treatment Plan Patient Information Visit Information: ADMISSION DATE: EXPECTED LOS: 4-6 weeks Problems/Symptoms Problem #1:: Mood instability Symptom:: Depression, sadness, hopelessness, worthlessness, guilt, biological disruption of sleep, decreased concentration, low energy Problem #2:: Anxiety Symptom:: Worry, rumination, panic attacks
--- NOTE | 2021-12-20 09:15 | BH.COMM ---
Communication Note - Communication with Client Communication Note: pt cancelled IOP today due to medical issues.
--- NOTE | 2021-12-23 08:26 | BH.COMM ---
Communication Note - Communication with Client Communication Note: Pt cancelled IOP again today
--- NOTE | 2021-12-23 09:29 | BH.COMM ---
Communication Note - Communication with Client Communication Note: pt called in and cancelled IOP again this AM. Missed past 2 scheduled days.
--- NOTE | 2021-12-25 08:26 | BH.COMM ---
Communication Note - Communication with Client Communication Note: Pt called to cancel IOP again today (4th session in a row) all due to upset stomach.
--- NOTE | 2021-12-27 14:37 | BH.COMM ---
Communication Note - Communication with Client Communication Note: Did not show for IOP today. Spoke with patient over the phone. He apologizes for missing several IOP days stating that he has had issues keeping things down this week. He reports feeling better and plans to attend on Thursday. He reports being motivated to remain in the program.
--- NOTE | 2021-12-30 10:36 | BH.COMM ---
Communication Note - Communication with Client Communication Note: Did not show for IOP today. Fifth missed day in a row. Current plan is to discharge, however will wait to see if patient reaches out.
--- NOTE | 2022-01-01 10:10 | BH.SGPN.GN ---
Behaviors/Verbalizations/Mental Status: []Pt alert and oriented, casually dressed and groomed. Eye contact good. Motor activity appropriate. Speech within normal limits. Affect constricted, mood anxious. Thoughts linear, logical, no signs of hallucinations or delusions. Client Response/Progress/Benefit: []Pt responded well to session AEB taking notes throughout and listening attentively to others. Pt was attentive throughout group activity identifying famous individuals and how they overcame failure to be successful. Pt helped group identify how fear of failure can impact mental health and relationships. Pt quiet during group discussion, but nodding and attentively listening to peers. Pt participated in experiential activity, working with group members to problem solve. Appeared to benefit from increased knowledge of fear of failure. Will continue IOP tx to monitor medication and mood, increase insight to warning signs, and improve daily functioning. Narrative Note: []
--- NOTE | 2022-01-01 12:09 | PCM.BH.PN_ITS ---
Progress Note Progress Note: History of Present Illness/Interim History: [] The patient is a 46-year-old male with a history of bipolar 1 disorder with psychotic features who is seen in follow-up at the [facility] behavioral health IOP program. I last saw the patient 2 weeks ago and at that time his Vraylar was increased to 3 mg nightly. The patient states that he feels much less overwhelmed now but still has some depression although it is improved. His amish delusions have completely resolved. His anxiety remains severe but mostly is increased and become severe when he has to socialize in groups which includes the groups of the IOP program. He feels he is benefiting from the IOP program so he wants to fight through his social anxiety. He is getting about 7 hours of sleep at night but if he does not have anywhere to go he lays around in bed much of the day but does not sleep. His panic attacks are happening 1-2 times a week now but they are triggered specifically by having to socialize in group settings or go out in crowds. He is still very stressed by the ongoing custody saravia with his ex- over his children. The patient had not been to group in 10 days before today due to his social anxiety. He has not used any alcohol for 3 weeks now. His counselor he states he feels that the patient is slowly getting better. He denies passive thoughts of , suicidal ideation, homicidal ideation, plan for suicide, hallucinations, delusions or symptoms of shawn. Current Psychiatric Medications: [] Vraylar 3 mg p.o. daily (x2 weeks now at this dose) Mental Status Examination: [] Patient is an obese male who is appears a little older than stated age and is casually dressed and groomed with good hygiene. He has no psychomotor agitation or retardation. He is ambulatory with a normal gait. Speech is normal rate and rhythm and fluent with no pressure. Eye contact is good. Mood is depressed. Affect is constricted but full at times. Thought process is goal-directed and organized. Thought content: There is no evidence of passive thoughts of , suicidal ideation, plan for suicide, homicidal ideation, hallucinations or delusions. He no longer has overvalued thoughts related to amish. He does have fear of being in crowds due to the fact that this triggers panic attacks. Reality testing is intact. Judgment is intact. Insight is limited but improving. Impulsivity is moderate. Diagnoses: [] 1. Bipolar disorder type I, most recent episode depressed, severe without psychosis 2. Anxiety disorder, NOS 3. Alcohol use disorder (sober for 3 weeks) 4. Hypertension with history of noncompliance with medication Plan: [] The patient will continue the IOP program at [facility] as the structure, support, education and group therapy will hopefully prevent worsening of the patient's symptoms which might require hospitalization. He felt safe during the interview and if it anytime he does not feel safe he will let us know or go to the emergency room. The risks, options, and possible complications and side effects of the medications were again discussed with the patient and he understands and accepts these. The patient agrees to continued to be compliant with his blood pressure medication and continue to get his blood pressure checked. He has a scheduled sleep study scheduled for January 07, 2022. He agrees to increase his Vraylar to 4.5 mg p.o. daily and understands he should not use any grapefruit or grapefruit juice while taking this medication. In addition, Vistaril 25 mg is added and he can take 1-2 by mouth as needed for panic attack. He should be careful not to drive until he sees if the medication sedates him. He will continue to follow-up with his outpatient providers and I will see the patient in follow-up in 2 weeks.
--- NOTE | 2022-01-01 13:57 | BH.MTP_ITS ---
[facility] Treatment Plan - Patient Information Program Physician:: Luciana Correa Primary Therapist:: Danial Knox - Psychiatric Diagnoses Psychiatric Diagnoses:: 1. Bipolar disorder type I, most recent episode depressed, severe without psychosis F31.4. 2. Anxiety disorder, NOS. 3. Alcohol use disorder (sober for 3 weeks) Diagnosis Code(s):: f31.4 - Estimated LOS Estimated LOS (in weeks):: 6 Problem/Goal #1 - Problem/Goal #1 Stated Goal:: Achieve controlled behavior, moderated mood, more deliberative speech and thought process, and a stable daily activity pattern. Client will also increase mood stability and reduce depression through the Intensive Outpatient Program AEB by reduction in depression and shawn domains on the DSM-5 cross-cutting scales. Description of Barriers: Hx of non-compliance with medication/treatment, legal/custody issues, limited insight into impact of Bipolar, mental health stigma, limited support, alcohol abuse, and health concerns (uncontrolled BP). Functional Impact: Due to mood instability, shawn, and non-compliance with medications/treatment pt lost custody of his children, had two ER visits for disorganized behaviors, and was placed on a psychiatric unit. Goal Relevant Strengths/Supports: Primary support is his children. Strengths include motivation to be healthier and passion to help others. - Objectives Objective #1 Stated Objective: Client will create a daily schedule with activities to increase mood and activity Interventions: Through individual and group counseling will help client identify activities to develop a healthy daily routine. Assist with finding purpose and helping others, and help client explore additional social outlets. Discharge Criteria: Pt will have developed a daily healthy routine/schedule and consistently follow it. Target Date: 01/29/22 Review Date: 01/15/22 Objective #2 Stated Objective: Client will increase self-awareness of her bipolar disorder by identifying 2-3 warning signs and triggers to both manic and depressive episodes Interventions: Through individual and group work, therapist will help client to identify triggers and warning signs for manic and depressive episodes. Therapist will provide psychoeducation on bipolar disorder and attempt to decrease stigma associated with this dx. Discharge Criteria: Pt will be able to identify 2-3 triggers to shawn and depressive episodes. Pt will also report increased awareness Bipolar dx and how it impacts pt's life. Target Date: 01/29/22 Review Date: 01/15/22 Objective #3 Stated Objective: Client will keep treatment team aware of medication compliance and alcohol use. Will provide education on importance on medication compliant and sobriety as well as develop 2-3 relapse prevention strategies to prevent self-medication with alcohol. Interventions: Through individual and group counseling will provide psychoeducation on importance of medication compliance and sobriety. Will discuss addiction cycle and effects of self-medication with alcohol. Discharge Criteria: Will report medication compliance and be able to identify 2- 3 strategies for relapse prevention. Target Date: 01/29/22 Review Date: 01/15/22 Problem/Goal #2 - Problem/Goal #2 Stated Goal:: Client will reduce overall frequency, intensity, and duration of anxiety to improve functioning AEB reduction in scores on the anxiety domain of the DSM-5 cross-cutting scales. Description of Barriers: Hx of non-compliance with medication/treatment, legal/custody issues, limited insight into impact of Bipolar, mental health stigma, limited support, alcohol abuse, and health concerns (uncontrolled BP). Functional Impact: Pt reports generalized anxiety and social anxiety have led to increased isolation, avoidance, and unhealthy choices. Goal Relevant Strengths/Supports: Primary support is his children. Strengths include motivation to be healthier and passion to help others. - Objectives Objective #1 Stated Objective: Client will reduce avoidance behaviors that reinforce anxiety by setting 1-2 small exposure goals a week to increase socialization, increase mastery, and reduce anxiety over time. Interventions: Through individual and group counseling will use cognitive restructuring techniques and help client gain awareness of negative thoughts that reinforce avoidance behaviors and fear of judgement. Therapist will help client incorporate mindfulness, opposite action, and self-talk strategies to manage anxiety. Discharge Criteria: Pt will have set and followed through with at least 6 small exposure goals meant to increase socialization and reduce anxiety. Target Date: 01/29/22 Review Date: 01/15/22 Objective #2 Stated Objective: Implement and consistently use 2-3 calming and coping strategies to reduce overall anxiety and to cope with the experience of panic. Interventions: Through individual and group counseling will teach client coping skills to improve emotional regulation, mindfulness, and distress tolerance to help client cope with anxiety in the moment. Therapist will assist client in identifying, challenging, and replacing dysfunctional thoughts with positive, more realistic thoughts. Discharge Criteria: Able to identify and consistently utilize 2-3 coping/calming skills. Self-report reduction in anxiety/panic Target Date: 01/29/22 Review Date: 01/15/22
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
--- NOTE | 2022-01-02 10:20 | BH.SGPN.GN ---
Behaviors/Verbalizations/Mental Status: []Pt alert and oriented, casually dressed and groomed. Eye contact good. Motor activity appropriate. Speech within normal limits. Affect constricted, mood anxious. Thoughts linear, logical, no signs of hallucinations or delusions. Client Response/Progress/Benefit: []Pt was a passive participant in the discussion, but engaged in the activity. Group worked together to identify benefits of healthy relationships which include; improves mental health, encouragement, motivation, accountability, validation, connection, someone to share experiences with, and personal growth. Group identified factors that lead to unhealthy relationships which included; co-dependence, lack of personal exploration, gaslighting, and blaming. Pt did not shared personal examples, but often nodding. Actively participated in group experiential activity. Benefited from increased insight and awareness of benefits of healthy relationships and factors that contribute to unhealthy relationships. Will continue in IOP to prevent decompensation, monitor medications and psychosis, and increase use of healthy coping skills. Narrative Note: []
== END 2022-01-02 23:59 ==
LOC: BHIOP 09:00
PROVIDERS: PCP Internal Medicine; Referring Provider Psychiatry & Neurology Psychiatry; Visit Provider Psychiatry & Neurology Psychiatry
DX: F31.4 Bipolar disorder, current episode depressed, severe, without psychotic features (principal); F41.9 Anxiety disorder, unspecified; Z72.89 Other problems related to lifestyle; I10 Essential (primary) hypertension; Z91.14 Patient's other noncompliance with medication regimen
CPT/HCPCS: 90792; 99214; H2012; H2020; S9480; T1002; 90834

== ENCOUNTER 2022-01-03 07:26 | Outpatient (RCR) | payer MEDICARE, MEDICAID, SELFPAY ==
[2022-01-03 00:49] VITALS: BP 186/122; PULSE 69
--- NOTE | 2022-01-07 11:10 | BH.SGPN.GN ---
Behaviors/Verbalizations/Mental Status: []Client alert and oriented, casually dressed and groomed. Eye contact good. Motor activity appropriate. Speech within normal limits. Affect constricted, mood euthymic. Thoughts linear, logical, no signs of hallucinations or delusions Client Response/Progress/Benefit: []Client was an active participant throughout AEB contributing to discussion, providing personal examples, and taking notes. He provided input during discussion on the types of support our supports can provide. Client was able to identify current support system and barriers that get in the way of using supports. Client stated he struggles most withe social support and plans on strengthening it by attending more [employer] meetups. Connected impact this can have on his mental health. Client seemed to benefit from identifying the type of support he needs to work on improving. Client recommended to continue IOP to continue use of healthy coping, challenge distorted thoughts and prevent decompensation. Narrative Note: []
--- NOTE | 2022-01-07 11:43 | BH.MDN ---
Multi-Disciplinary Note - Note 60-min Individual Time Started:: 10:15 Date: 01/07/22 Purpose of session/treatment goals addressed:: Reviewed progress and current symptoms. Addressed treatment goal one, objective 1 and 2. Eye Contact:: Good Motor Activity:: Appropriate Appearance:: Disheveled Speech:: Appropriate Mood:: Anxious Affect:: Congruent Thoughts:: Linear, Logical, No evidence of hallucinations/delusions noted Staff Interventions:: motivational interviewing, psychoeducation on: - Bipolar and Lesa., goal setting Client Response:: Pt continues to present to [facility] at 10am due to anxiety related to process group. He was prescribed a PRN medication and plans to attempt to present to process group this week and to utilize PRN if needed. Pt spent time with his kids over the weekend which he stated went well. He walked with them to watch fireworks. Remains frustrated with restrictions on his time spent with children and briefly discussed his custody case with his ex. Reports that he is medication compliant. We reviewed the events that led to his recent psychiatric admission and dx of Bipolar. He is struggling with the stigma associated with a Bipolar dx and also is sad that spiritual experiences may not have been genuine but related to Bipolar. It just felt more spiritual than anything. He recalls his actions and thoughts prior to admission and admits they were irrational. Fear that this could happen again that's why I've been taking my medications consistently. He was open to psychoeducation on Bipolar as well as combating mental health sigma which he responded well. Currently reporting depressive symptoms with desire to sleep all day. I have a hard time waking up in the morning and sleeps to escape and cope. Agreed to setting small goals in the AM ( showering 3x weekly, and walking on treadmill for 5 minutes 2x weekly). Risks/Concerns:: no risks or concerns noted. Progress Toward Goals/Plan:: Limited progress. Reports medication compliance. Continues to struggles with motivation, isolation, low energy, and unhealthy coping skill. Pt reports weight gain of 37lbs since September. I'm at the heaviest I've ever been . Insight and awareness that he needs to make changes to improve health however has not taken action. Without responsibility to care for kids on a more consistent basis he does not have anything forcing him to get up and move. Not showering or completing ADLs, poor eating habits, and spend majority of the day watching mindless TV. He was able to set up small daily goals. Motivational interviewing regarding making changes and accepting Bipolar dx. Will continue in IOP to stabilize mood, prevent decompensation, and increase healthy coping skills. Time Stopped:: 11:15
--- NOTE | 2022-01-08 10:00 | BH.COMM ---
Communication Note - Communication with Client Communication Note: No call/ No show for today.
--- NOTE | 2022-01-08 14:57 | BH.TPR ---
Treatment Plan Review Date of Admission:: 12/16/21 Date of Treatment Plan Review:: 01/08/22 Admitting Diagnoses:: 1. Bipolar disorder type I, most recent episode depressed, severe without psychosis. 2. Anxiety disorder, NOS. 3. Alcohol use disorder Current Diagnoses:: 1. Bipolar disorder type I, most recent episode depressed, severe without psychosis. 2. Anxiety disorder, NOS. 3. Alcohol use disorder (Partial remission) Patient's Response to Treatment:: Pt's attendance and engagement in IOP have been poor. Since starting on 12/16/21 pt has either no showed or cancelled IOP on six occasions. Reasons for missing IOP have ranged from stomach issues to anxiety. After expressing excessive social anxiety and panic were preventing him from IOP, treatment team was agreeable with modifying his IOP to exclude process group (9am) to allow him to adjust to PRN medications for panic. Per pt process group was the most anxiety producing. Pt was provided prescription for PRN anxiety on 01/01/22 and as of 01/08/22 has not filled it. He missed IOP again this AM. He is attentive during groups and reports benefits, however has made little if any attempt to utilize skills learned outside of IOP. Reports being motivated to change in individual counseling sessions however again has not taken any action. Status of Current Problems and Symptoms: Pt completed DSM-5 cross cutting scales which show an overall 14% decrease in symptoms since admission. Pt had a 25% decrease in the depression domain, and a 66% decrease in the anger domain. At admission and at 3 week jose pt reports no symptoms on the shawn domain. Scores on the anxiety domain have increased 28%. Pt reports significant depression and isolative behaviors which are impacting functioning. Currently reporting depressive symptoms with desire to sleep all day. I have a hard time waking up in the morning and sleeps to escape and cope. Frustrated and irritable regarding his custody being taken away by ex- (going through legal system now). Pt displays numerous unhealthy coping skills including over-eating, isolation, and sleeping to escape. Pt has gained close to 40 lbs since September. Worsening social anxiety since psych admission in September 2021. While he is compliant on his Bipolar medication he continues to voice stigma associated with dx and hesitancy to admit that he is Bipolar. Problem #1 Problem Name:: Mood instability/Depression Status of Goals:: Obj 1. We recently began to identify small goals and tasks to complete . Obj 2. Limited progress due to reluctance to accept Bipolar dx. obj 3- Some progress, compliant with bipolar medication however non-compliant with BP and PRN meds Team Recommendations:: Treatment team discussed ways to increase attendance and engagement in IOP as inconsistency is significant obstacle to progress. Problem #2 Problem Name:: Anxiety Status of Goals:: obj 1- no progress noted due to lack of participation, motivation, and use of skills learned. obj 2- no progress noted due to lack of participation, motivation, and use of skills learned. Team Recommendations:: Treatment team discussed ways to increase attendance and engagement in IOP as inconsistency is significant obstacle to progress. Therapist will reach out to patient today to discuss attendance issues and discuss possible d/c from program due to non-compliance.
--- NOTE | 2022-01-10 10:15 | BH.SGPN.GN ---
Behaviors/Verbalizations/Mental Status: []Eye contact is good. Motor activity is appropriate. Appearance is casual. Speech is Appropriate. Mood is anxious. Affect is constricted. Thoughts are linear and logical. No evidence of psychosis. Client Response/Progress/Benefit: []Pt was an active participant in group discussion and activity. Attentive during psychoeducation on the stages of change. Pt participated in interactive discussion on emotions associated with change (happy, anxious, proud, shocked, surprised, guilty, etc). Pt participated in the group activity despite being anxious. Pt along with peers identified barriers that may prevent one from making change such as anxiety, fear of failure, and lack of motivation. Group able to identify the benefits to changes such as acceptance, patience, self-awareness, and personal growth. Benefited from increased awareness of emotions related to change, the change process, and benefits/barriers to change. Will continue in IOP to prevent decompensation, monitor psychosis, and improve self-awareness to help manage symptoms. Narrative Note: []
--- NOTE | 2022-01-13 10:38 | BH.MDN_ITS ---
Multi-Disciplinary Note - Note 60-min Individual Time Started:: 09:05 Date: 01/13/22 Purpose of session/treatment goals addressed:: Reviewed current symptoms and progress in [facility]. Addressed treatment plan goal 1; objectives 1 and 3 as well as treatment plan goals 2, objective 1. Eye Contact:: Good Motor Activity:: Appropriate Appearance:: Disheveled Speech:: Appropriate Mood:: Depressed Affect:: Full Thoughts:: Linear, Logical, No evidence of hallucinations/delusions noted Staff Interventions:: psychoeducation on: - relapse prevention skills., rapport building Client Response:: Pt showed up to [facility] this AM at 9am with intent on participating in 1st group. He did not take a Vistaril prior to arriving today stating I didn't think I needed it. Due to social anxiety over the past several weeks he has been missing 1st group. Due to unforeseen circumstances we had to cancel group today. He reports decreased anxiety over the past week. He believes that since he has been isolating all day for the past several months that stepping outside his comfort zone and being in public or IOP was increasing his anxiety. Since he is more comfortable with [facility] his anxiety may have lessened. Overall his anxiety has decreased. He followed through with adhering to daily routine of showering at least 3x weekly and getting up prior to 11am which he found has been helpful for motivation, mood, and getting to bed earlier at night. He had set a goal to walk on treadmill 5 minutes 3x weekly however has not completed that. He has set up a volunteering opportunity in 2 weeks to increase social outlet and purpose. We also set goal to accomplish a reading assignment. Continued depression and lack of purpose/motivation throughout the day which cause urges to self-medication/escape with alcohol. We discussed relapse prevent skills of creating a motivation box to look at when he gets urges which would include motivators to remain sober (pics of kids, list of benefits, list of consequences of use, etc). Risks/Concerns:: no risks or concerns noted. Progress Toward Goals/Plan:: Progress noted. Pt reports decreased social anxiety as he attended latter-day yesterday and present to [facility] early this AM for group. Reports feeling more comfortable in social settings and around people. Medication compliant. Lethargic throughout the day with low energy. He has a sleep study scheduled this week. He also notes long-standing issues with high BP which may effect his energy. He is medication compliant on BP meds. He reports improved completion of ADLs and is setting up social activities for the future, however continues to isolate for a majority of the day which is increasing depression. Has been sober for over 3 weeks however reports strong urges to self-medicate with alcohol at night to escape or cope with loneliness. Primary stress is court hearings related to custody issues with his children. Will continue in IOP to stabilize mood, prevent decompensation, and increase healthy coping. Time Stopped:: 09:55
--- NOTE | 2022-01-14 09:05 | BH.SGPN.GN ---
Behaviors/Verbalizations/Mental Status: [] Eye contact is good. Motor activity is appropriate. Appearance is casual. Speech is Appropriate. Mood is anxious. Affect is congruent. Thoughts are linear and logical. No evidence of psychosis. Reviewed daily check in sheet and no reports of suicidal ideations or intent. Client Response/Progress/Benefit: [] Pt participated when prompted. Attentive. Daily symptom tracker notes 2 for depression and anxiety. Emotion for today is in flux. Mental health win is I made it to first group. He shared his struggles with social anxiety recently and how this impacted his ability to make it through first group. He shared some of his negative automatic thoughts and some recent examples of catastrophizing which increased his anxiety and depression. Shared how certain recent events triggered depression, anger, and anxiety. Insight and awareness of cognitive distortions and attempts to challenge and reframe. Benefited from group support, encouragment, and feedback. Will continue in IOP to prevent decompensation, increase healthy coping, and to improve functioning. Narrative Note: []
--- NOTE | 2022-01-14 10:15 | BH.SGPN.GN ---
Behaviors/Verbalizations/Mental Status: [] Eye contact is good. Motor activity is appropriate. Appearance is casual. Speech is Appropriate. Mood is anxious. Affect is congruent. Thoughts are linear and logical. No evidence of psychosis. Client Response/Progress/Benefit: [] Pt participated at times during the group discussion. Attentive during psychoeducation. Participated in experiential activity. Pt was attentive AEB by note-taking during interactive discussion on the consequences of unhealthy expression of emotions. Attentive while peers identified several consequences which included; judgement from others, can push people away, people will keep information from us for fear we cannot handle it, we are perceived as angry or crazy, impacts our ability to effectively communicate. Attentive during interactive discussion on common potholes to effectively communicating which included; not focusing on topic at hand, too many issues/concerns at once, assumptions, jumping to conclusions, sarcasm, listening only to respond, and mental health struggles. Pt was able to relate and make connections between the experiential activity and the overall topic. Benefited from increased awareness of how stress and emotions can impact one's ability to communicate. Will continue in IOP to prevent decompensation, stabilize mood, and prevent re-admission. Narrative Note: []
--- NOTE | 2022-01-15 09:00 | BH.SGPN.GN ---
Behaviors/Verbalizations/Mental Status: [] Eye contact is good. Motor activity is appropriate. Appearance is disheveled. Speech is Appropriate. Mood is anxious. Affect is congruent. Thoughts are linear and logical. No evidence of psychosis. Reviewed daily check in sheet and no reports of suicidal ideations or intent. Client Response/Progress/Benefit: [] Pt participated when prompted. Attentive. Daily symptom tracker notes 08/10 for anxiety. Emotion for today is stressed. Mental health win is making it to 1st group three days in a row. Shared briefly how his social anxiety impacted him from attending 1st group for his first 2 weeks. He continues to appear anxious in group AEB by sweating and limited verbalizations. He shared some recent stressors related to legal/custody issues and how this has impacted his mental health. He has a scheduled sleep study this afternoon which he has cancelled 5x in the past. He really wants to go however typically talks himself out of it at the last moment. Group provided some feedback and encouragement which was beneficial. He is going out of town to visit family next week. Progress noted per pt report with consistent attendance this week. Plan is to continue in IOP to prevent decompensation/re-admission, increase health coping, and to stabilize mood. Narrative Note: []
--- NOTE | 2022-01-15 10:05 | BH.SGPN.GN ---
Behaviors/Verbalizations/Mental Status: []Client alert and oriented, casually dressed and groomed. Eye contact good. Motor activity appropriate. Speech within normal limits. Affect constricted, mood anxious. Thoughts linear, logical, no signs of hallucinations or delusions. Client Response/Progress/Benefit: [] Client was an active participant in activity and taking notes during group discussion. Attentive during psychoeducation on coping skills, why people use unhealthy coping skills, and how to replace unhealthy coping skills. Benefited from increased understanding of unhealthy coping skills and the need for developing healthy internal and external coping skills. Client did not share input to group with mainly taking notes. Client will continue IOP tx to prevent decompensation, increase positive self-image, and increase overall functioning. Narrative Note: []
--- NOTE | 2022-01-15 11:05 | BH.SGPN.GN ---
Behaviors/Verbalizations/Mental Status: [] Client alert and oriented, neatly dressed and groomed. Eye contact fair to good. Motor activity appropriate. Speech within normal limits. Affect constricted, mood anxious. Thoughts linear, logical, no signs of hallucinations or delusions. Client Response/Progress/Benefit: [] Client responded well to session AEB taking notes and appeared to be attentive. Group discussed the different categories of coping skills which included distraction, emotional release, grounding, self-love, and thought challenging. Client created a coping skill menu identifying various skills to try in each category. Client's coping skill menu included: writing, exercise, implementing breathing techniques, practice kindness to self, and increase awareness of cognitive distortions he utilizes. Appeared to benefit from increasing repertoire of healthy coping skills. Client will continue IOP tx to improve daily functioning, reduce negative thinking, and increase application of healthy coping skills. Narrative Note: [] Behaviors/Verbalizations/Mental Status: [] Client alert and oriented, neatly dressed and groomed. Eye contact fair to good. Motor activity appropriate. Speech within normal limits. Affect constricted, mood anxious. Thoughts linear, logical, no signs of hallucinations or delusions. Client Response/Progress/Benefit: [] Client responded well to session AEB taking notes and appeared to be attentive. Group discussed the different categories of coping skills which included distraction, emotional release, grounding, self-love, and thought challenging. Client created a coping skill menu identifying various skills to try in each category. Client's coping skill menu included: writing, exercise, implementing breathing techniques, practice kindness to self, and increase awareness of cognitive distortions he utilizes. Appeared to benefit from increasing repertoire of healthy coping skills. Client will continue IOP tx to improve daily functioning, reduce negative thinking, and increase application of healthy coping skills. Narrative Note: []
--- NOTE | 2022-01-20 08:20 | BH.COMM ---
Communication Note - Communication with Client Communication Note: Pt will not be at IOP all this week due to a family event out of state.
--- NOTE | 2022-01-29 15:36 | BH.COMM ---
Communication Note - Communication with Client Communication Note: Returned from his trip out of state this week and was scheduled to attend IOP today. No call/ no show. Left message.
--- NOTE | 2022-01-30 08:22 | BH.COMM ---
Communication Note - Communication with Client Communication Note: Pt called cancelling IOP for today. Believes that he may have gotten COVID. To get tested and call back.
--- NOTE | 2022-02-04 10:43 | BH.COMM_ITS ---
Communication Note - Communication with Client Communication Note: no call no show today. Inconsistent attendance. Poor c ompliance with IOP level of care. Treatment team has made several accommodations and remains lenient as pt would benefit from consistent treatment however pt has not attended since 01/15/22. Noted possible COVID dx last week however has not called to update therapist. Left message stating he would be attending today however did not show. Called and left VM.
--- NOTE | 2022-02-04 16:36 | BH.COMM ---
Communication Note - Communication with Client Communication Note: Spoke with patient over the phone. Reports that he forgot about IOP this AM. We had a discussion on lack of attendance. Pt has not attended IOP in 3 weeks with several no call/ no shows. Denies any significant decompensation in the past 3 weeks. While he continues to report mild-moderate depression he denies any SI, shawn, or significant distress in the past 3 weeks in absence of IOP programing and support. It would seem that he has maintained stability in absence of IOP for 3 weeks therefore it would be hard to justify IOP level of care. No longer meets criteria for IOP level of care. Will discharge from the program.
--- NOTE | 2022-02-05 08:34 | BH.DS_ITS ---
Discharge Summary - Demographics Date of Admission:: 12/16/21 Discharge Date: 02/04/22 Presenting Problems at Admission:: Pt is a 46 y/o male with hx of Bipolar. Recently admitted to psychiatric unit on 09/17/21 due to acute psychosis. Presented to [facility] ER on two occasions on 09/16/21 due to disorganized thoughts, sikhism pre-occupation, and bizarre behaviors. Per [facility] ER notes pt at one point was crawling on the floor of the ER and verbalizing irrational thoughts. 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 When police arrived he whispered that he was living by the [employer] and the [employer]. Police pink slipped pt who has a long hx of Bipolar disorder and non- compliance with medications. Due to concerns with mental health pt''s recently has not allowed pt's children to visit which is significant stressor. PCP started pt on Vraylar 3 weeks ago as pt stated all medications shortly after his psych discharge. Continues to deny and reject Bipolar dx and likens the events leading up to psych admission as spiritual, however does admit something is broken in me. Endorses increased irritability, poor sleep, low energy, low motivation, isolation, avoidance, and increased excessive eating. Anxiety attacks. Ruminations over children. Poor focus/concentration. Family hx of Bipolar (mom/brother). Self-medicates with alcohol. Medical marijuana card. Discharge Diagnoses:: 1. Bipolar disorder type I, most recent episode depressed, severe without psychosis. 2. Anxiety disorder, NOS. 3. Alcohol use disorder Reason for Discharge:: Pt has not attended IOP in 3 weeks with several no call/ no shows. Denies any significant decompensation in the past 3 weeks. While he continues to report mild-moderate depression he denies any SI, shawn, or significant distress in the past 3 weeks in absence of IOP programing and support. It would seem that he has maintained stability in absence of IOP for 3 weeks therefore it would be hard to justify IOP level of care. No longer meets criteria for IOP level of care. Medication compliant and no shawn noted since discharge from psychiatric facility in 09/2021. - Treatment Progress During Treatment & Response: Pt did not respond well to IOP treatment. He noted social anxiety in groups and was inconsistent with attendance for a myriad of reasons including illness, difficulty waking up, anxiety, and family obligations. Since admission on 12/16/21 pt has cancelled or did not show for 11 IOP sessions and only attended 9 IOP sessions. He was excused for a week due to planned trip out of town which was booked a year ago. Pt has not shown for IOP in the past 3 weeks. HIs inconsistent attendance and frequent call off led to only meeting with program psychiatrist on one occasions. Despite his lack of attendance he has reported improvement in his overall mental health, has not decompensated, and reports continued medication compliance. Treatment plan review and DSM-5 outcomes scores from 01/08/22 showed an overall 14% decrease in symptoms since admission. Pt had a 25% decrease in the depression domain, and a 66% decrease in the anger domain. At admission and at 3 week jose pt reports no symptoms on the shawn domain. Scores on the anxiety domain have increased 28%. Last time patient was seen individually (week of 01/15/22) he reported decreased anxiety, increased completion of ADLs, and increased social activities. Also reported sobriety for 3 weeks. At that point reported moderate depression and isolation as primary concerns. Spoke with patient over the phone on 02/04/22 and while he continues to report mild-moderate depression he denies any SI, shawn, or significant distress in the past 3 weeks in absence of IOP programing and support. Issues Still to be Addressed:: Depression, isolation, medical issues impacting overall physical and mental health (high BP, excessive eating, possible sleep apnea), stigma associated with Bipolar dx, hx of non-compliance with medications, and anxiety Discharge Recommendations/Instructions:: Pt reports that he has weekly appointments with his outpatient therapist (Tamara Adams at [facility]) with next appointment on 02/06/22. Therapist left message with therapist to confirm this however she has not returned calls. He reports that he as a appointment with psychiatrist (Dr. Basilio) at the [facility] in the next few weeks. He also reports upcoming appointment with Jose Rapp NP (pcp) who manages his BP. Discharge Handout: Complete Discharge Handout with client on aftercare options and continuity of care.
== END 2022-02-02 23:59 ==
LOC: BHIOP 07:26
PROVIDERS: PCP Internal Medicine; Referring Provider Psychiatry & Neurology Psychiatry; Visit Provider Psychiatry & Neurology Psychiatry
DX: F31.4 Bipolar disorder, current episode depressed, severe, without psychotic features (principal); F41.9 Anxiety disorder, unspecified; Z72.89 Other problems related to lifestyle; I10 Essential (primary) hypertension; Z91.14 Patient's other noncompliance with medication regimen
CPT/HCPCS: H2012; H2020; S9480; 90837

== ENCOUNTER → 2022-02-19 | Outpatient (CLI) | payer MEDICARE, MEDICAID, SELFPAY | END | disposition home or self-care (01) | LOC: SL 20:37 | PROVIDERS: PCP Internal Medicine; Referring Provider Nurse Practitioner Family; Visit Provider Nurse Practitioner Family | DX: G47.10 Hypersomnia, unspecified (principal) | CPT/HCPCS: 95810 ==

== ENCOUNTER → 2022-05-06 | Outpatient (CLI) | payer MEDICARE, MEDICAID, SELFPAY | END | disposition home or self-care (01) | LOC: SL 14:02 | PROVIDERS: PCP Internal Medicine; Referring Provider Nurse Practitioner Family; Visit Provider Nurse Practitioner Family | DX: Z00.00 Encounter for general adult medical examination without abnormal findings (principal) ==

== ENCOUNTER → 2023-10-15 | Outpatient (CLI) | payer MEDICARE, MEDICAID, SELFPAY ==
[2023-10-15 08:48] LABS: Vitamin B12 714 pg/mL (211-911)
[2023-10-15 09:05] LABS: ALB/GLOB Ratio 1.1 RATIO (0.9-2.4); AST(SGOT) 40 U/L (15-37); Alanine Aminotransfer ALT/SGPT 57 U/L (16-61); Albumin, Serum 4.6 g/dL (3.2-5.0); Alkaline Phosphatase 102 U/L (45-117); Anion Gap 11 (5-15); BUN 12 mg/dL (7-18); BUN/Creat Ratio 11.9 RATIO (10-20); Calcium,Total 9.8 mg/dL (8.5-10.1); Chloride 103 mmol/L (98-107); Creatinine, Serum 1.01 mg/dL (0.70-1.30); EST Glomerular Filtration Rate 84 mL/min (>60); Est Glom Filt Rate - Afr Amer 102 mL/min (>60); Free T3 2.9 pg/mL (2.18-3.98); Globulin 4.1 g/dL (2.2-4.2); Glucose 78 mg/dL (74-106); Potassium 3.8 mmol/L (3.5-5.1); Protein, Total 8.7 g/dL (6.4-8.2); Sodium Level 135 mmol/L (136-145); T4 Free Direct 1.22 ng/dL (0.76-1.46)
== END | disposition home or self-care (01) ==
PROVIDERS: PCP Nurse Practitioner Family; Referring Provider Registered Nurse; Visit Provider Registered Nurse
DX: F31.2 Bipolar disorder, current episode manic severe with psychotic features (principal); Z79.899 Other long term (current) drug therapy
CPT/HCPCS: 36415; 80053; 82306; 82607; 84439; 84443; 84481

== ENCOUNTER 2023-12-02 10:20 | Outpatient (CLI) | payer MEDICARE, MEDICAID, SELFPAY ==
[2023-12-02 10:53] LABS: Absolute Lymphocyte Count 2.76 X10^3/uL (0.83-4.51); Absolute Neutrophil Count 5.8 X10^3/uL (2.0-7.7); Basophil# 0.05 X10^3/uL; Basophil% 0.5 % (0-1); Eosinophil# 0.18 X10^3/uL; Eosinophils% 1.9 % (0-5); Hematocrit 43.5 % (40-54); Hemoglobin 14.8 g/dL (13.0-16.5); Lymphocyte # 2.76 X10^3/ul (0.83-4.51); Lymphocyte % 29.2 % (19-41); Mean Corpuscular Hgb 30.3 pg (27.0-32.0); Mean Corpuscular Volume 89.1 fL (80-94); Mean Platelet Vol. 10.4 fl (6.2-12.0); Monocyte# 0.65 X10^3/uL; Monocyte% 6.9 % (0-10); NRBC Flagged by Analyzer 0 % (0-5); Neutrophil # 5.75 X10^3/uL (2.7-7.7); Neutrophil % 60.9 % (47-70); Platelet Count 236 K/mm3 (150-450); RBC Distribution Width SD 38.9 fl (35.1-43.9); Red Blood Count 4.88 M/mm3 (4.6-6.2); White Blood Count 9.5 K/mm3 (4.4-11.0)
[2023-12-02 12:38] LABS: AST(SGOT) 24 U/L (15-37); Alanine Aminotransfer ALT/SGPT 30 U/L (16-61); Albumin, Serum 3.9 g/dL (3.2-5.0); Alkaline Phosphatase 115 U/L (45-117); Anion Gap 8 (5-15); BUN 7 mg/dL (7-18); BUN/Creat Ratio 8.4 RATIO (10-20); Chloride 105 mmol/L (98-107); Cholesterol 224 mg/dL (200); Creatinine, Serum 0.83 mg/dL (0.70-1.30); EST Glomerular Filtration Rate 105 mL/min (>60); Est Glom Filt Rate - Afr Amer 127 mL/min (>60); Glucose 107 mg/dL (74-106); High Density Lipoprotein 31 mg/dL; Potassium 3.3 mmol/L (3.5-5.1); Protein, Total 7.9 g/dL (6.4-8.2); Sodium Level 138 mmol/L (136-145); Thyroid Stim Hormone (TSH) 2.81 uIU/mL (0.358-3.74); Triglycerides 242 mg/dL; Very Low Density Lipoprotein 48 mg/dL (5-40)
[2023-12-02 14:51] LABS: Hemoglobin A1c 5.5 % (3.8-5.6)
[2023-12-02 17:14] LABS: Vitamin B12 519 pg/mL (211-911); Vitamin D,25 Hydroxy 23.5 ng/mL
== END 2023-12-02 23:59 | disposition home or self-care (01) ==
LOC: LAB 10:21
PROVIDERS: PCP Nurse Practitioner Family; Referring Provider Nurse Practitioner Family; Visit Provider Nurse Practitioner Family
DX: Z00.00 Encounter for general adult medical examination without abnormal findings (principal); E78.5 Hyperlipidemia, unspecified; E55.9 Vitamin D deficiency, unspecified; F41.9 Anxiety disorder, unspecified; I10 Essential (primary) hypertension
CPT/HCPCS: 36415; 80053; 80061; 82306; 82607; 83036; 84443; 85025

== ENCOUNTER → 2024-02-03 | Outpatient (CLI) | payer MEDICARE, MEDICAID, SELFPAY ==
[2024-02-03 12:56] LABS: Absolute Lymphocyte Count 1.54 X10^3/uL (0.83-4.51); Basophil# 0.06 X10^3/uL; Basophil% 0.7 % (0-1); Eosinophils% 1.2 % (0-5); Hematocrit 43.2 % (40-54); Hemoglobin 14.6 g/dL (13.0-16.5); Lymphocyte # 1.54 X10^3/ul (0.83-4.51); Lymphocyte % 18.6 % (19-41); Mean Corp Hgb Conc 33.8 g/dL (32-36); Mean Corpuscular Hgb 30.2 pg (27.0-32.0); Mean Corpuscular Volume 89.4 fL (80-94); Mean Platelet Vol. 10.9 fl (6.2-12.0); Monocyte# 0.52 X10^3/uL; Monocyte% 6.3 % (0-10); NRBC Flagged by Analyzer 0 % (0-5); Neutrophil # 5.99 X10^3/uL (2.7-7.7); Neutrophil % 72.6 % (47-70); Platelet Count 223 K/mm3 (150-450); RBC Distribution Width CV 12.7 % (11.6-14.6); RBC Distribution Width SD 41.1 fl (35.1-43.9); Red Blood Count 4.83 M/mm3 (4.6-6.2); White Blood Count 8.3 K/mm3 (4.4-11.0)
[2024-02-03 13:40] LABS: Amphetamine Urine VISTA NEGATIVE (<1000 ng/mL); Barbiturate Urine VISTA NEGATIVE (< 200 ng/mL); Benzodiazepine Urine VISTA NEGATIVE (< 200 ng/mL); Cocaine Urine VISTA NEGATIVE (< 300 ng/mL); Ecstacy Urine VISTA NEGATIVE (< 500 ng/mL); Methadone Urine VISTA NEGATIVE (< 300 ng/mL); PCP Urine VISTA NEGATIVE (< 25 ng/mL); THC Urine VISTA POSITIVE (< 50 ng/mL); Vista UDS pH Range 5
[2024-02-03 13:48] LABS: AST(SGOT) 51 U/L (15-37); Alanine Aminotransfer ALT/SGPT 53 U/L (16-61); Albumin, Serum 3.8 g/dL (3.2-5.0); Alkaline Phosphatase 108 U/L (45-117); Anion Gap 9 (5-15); BUN 13 mg/dL (7-18); BUN/Creat Ratio 14.1 RATIO (10-20); Calcium,Total 9.1 mg/dL (8.5-10.1); Chloride 107 mmol/L (98-107); Cholesterol 179 mg/dL (200); Creatinine, Serum 0.92 mg/dL (0.70-1.30); EST Glomerular Filtration Rate 94 mL/min (>60); Est Glom Filt Rate - Afr Amer 114 mL/min (>60); Globulin 3.8 g/dL (2.2-4.2); Glucose 114 mg/dL (74-106); High Density Lipoprotein 48 mg/dL; Potassium 4.1 mmol/L (3.5-5.1); Protein, Total 7.6 g/dL (6.4-8.2); Sodium Level 138 mmol/L (136-145); Thyroid Stim Hormone (TSH) 1.21 uIU/mL (0.358-3.74); Triglycerides 86 mg/dL; Very Low Density Lipoprotein 17 mg/dL (5-40)
== END | disposition home or self-care (01) ==
LOC: VSLAB 10:05
PROVIDERS: PCP Nurse Practitioner Family; Visit Provider Nurse Practitioner Family
DX: F10.20 Alcohol dependence, uncomplicated (principal); I10 Essential (primary) hypertension
CPT/HCPCS: 36415; 80053; 80061; 80307; 82077; 84443; 85025

== ENCOUNTER → 2024-02-11 | Outpatient (CLI) | payer MEDICARE, MEDICAID, SELFPAY ==
--- NOTE | 2024-02-11 11:13 | RAD_ITS ---
STUDY: X-RAY - LEFT SHOULDER REASON FOR EXAM: Male, 48 years old. Pain. TECHNIQUE: 4 views of the left shoulder. COMPARISON: None. FINDINGS: Normal glenohumeral articulation. There is mild acromioclavicular arthrosis. Normal acromion. There is an anchor in the greater tuberosity of the humeral head. Intact humeral head and visualized proximal humerus. The soft tissue structures are unremarkable. There is no demonstrated fracture. Normal visualized pulmonary apex. RAD/Shoulder min 2 Views IMPRESSION: Mild acromioclavicular arthrosis. No demonstrated fracture. Electronically Signed: Vlad Nichols MD at 12:42 EDT ,
== END | disposition home or self-care (01) ==
PROVIDERS: PCP Nurse Practitioner Family; Referring Provider Nurse Practitioner Family; Visit Provider Nurse Practitioner Family
DX: M25.512 Pain in left shoulder (principal)
CPT/HCPCS: 73030

== ENCOUNTER → 2024-02-24 | Outpatient (CLI) | payer MEDICARE, MEDICAID, SELFPAY ==
[2024-02-24 16:32] LABS: Amphetamine Urine VISTA NEGATIVE (<1000 ng/mL); Vista UDS pH Range 5
[2024-02-24 16:33] LABS: Barbiturate Urine VISTA NEGATIVE (< 200 ng/mL); Benzodiazepine Urine VISTA NEGATIVE (< 200 ng/mL); Cocaine Urine VISTA NEGATIVE (< 300 ng/mL); Ecstacy Urine VISTA NEGATIVE (< 500 ng/mL); Methadone Urine VISTA NEGATIVE (< 300 ng/mL); PCP Urine VISTA NEGATIVE (< 25 ng/mL); THC Urine VISTA POSITIVE (< 50 ng/mL)
== END | disposition home or self-care (01) ==
LOC: VSLAB 15:12
PROVIDERS: PCP Nurse Practitioner Family; Visit Provider Nurse Practitioner Family
DX: Z79.899 Other long term (current) drug therapy (principal)
CPT/HCPCS: 80307

== ENCOUNTER 2024-04-12 08:00 | Outpatient (RCR) | payer MEDICARE, MEDICAID, SELFPAY ==
--- NOTE | 2024-04-12 09:02 | BH.SGPN.GN ---
Behaviors/Verbalizations/Mental Status: [] Client alert and oriented, casual appearance. Eye contact poor. Motor activity appropriate. Speech within normal limits. Affect flat, mood depressed. Thoughts linear, logical, no signs of hallucinations or delusions. Reviewed client's symptom tracker, no risk for suicidal ideation, plan, or intent. Client Response/Progress/Benefit: [] Client responded well to session AEB listening to others and sharing thoughts/feelings. Client reported mental positive as showing up to IOP today despite not wanting to. Client stated current stressor is not being able to see his kids due to legal issues right now. Client reported it is hard for him to see positives when he cannot spend time with his kids who are extremely important to him. Appeared to benefit from support from peers. Will continue IOP tx to challenge negative thinking, increase utilization of healthy coping skills, and prevent decompensation. Narrative Note: [] Behaviors/Verbalizations/Mental Status: [] Client alert and oriented, casual appearance. Eye contact poor. Motor activity appropriate. Speech within normal limits. Affect flat, mood depressed. Thoughts linear, logical, no signs of hallucinations or delusions. Reviewed client's symptom tracker, no risk for suicidal ideation, plan, or intent. Client Response/Progress/Benefit: [] Client responded well to session AEB listening to others and sharing thoughts/feelings. Client reported mental positive as showing up to IOP today despite not wanting to. Client stated current stressor is not being able to see his kids due to legal issues right now. Client reported it is hard for him to see positives when he cannot spend time with his kids who are extremely important to him. Appeared to benefit from support from peers. Will continue IOP tx to challenge negative thinking, increase utilization of healthy coping skills, and prevent decompensation. Narrative Note: []
--- NOTE | 2024-04-12 09:52 | BH.COMM_ITS ---
Communication Note Communication with Client Communication Note: Met with pt to complete initial paperwork and administer the CSSR-S screening and risk assessment. Pt is a mild risk as pt does not report any suicidal ideations, plan, or intent within the last month. Pt has history of self-interrupted attempted ?years and years ago? when pt was a teenager. Pt does admit to ?praying for ? within the past month as pt misses his children, but his luis eduardo is also one of his biggest protective factors. Pt a Discussed case with Dr. Padron and pt will be admitted to [facility] tx with a diagnosis of bipolar disorder type I, most recent episode depressed, severe without psychosis (F31.4)
--- NOTE | 2024-04-12 10:10 | BH.SGPN.GN ---
Behaviors/Verbalizations/Mental Status: []Client alert and oriented, casually dressed and groomed. Eye contact good. Motor activity appropriate. Speech within normal limits. Affect constricted, mood anxious and depressed. Thoughts linear, logical, no signs of hallucinations or delusions. Client Response/Progress/Benefit: [] Pt responded well to session AEB actively participating throughout group. Pt was attentive throughout group activity discussing famous individuals and how they overcame failure to be successful. Pt helped group identify how fear of failure can impact mental health and relationships. Pt personally identified it leads to pt shutting down. Participated in experiential activity, working with group members to problem solve. Appeared to benefit from increased knowledge of what causes fear of failure and how it impacts people. Will continue IOP tx to prevent decompensation, improve daily functioning, and increase emotional regulation skills. Narrative Note: []
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
--- NOTE | 2024-04-12 11:10 | BH.MDN_ITS ---
Multi-Disciplinary Note Note 60-min Individual: Time Started:: 11:10 Date: 04/12/24 Purpose of session/treatment goals addressed:: Met with pt to review psychosocial history, current symptoms, and reasons for entering IOP. Began to develop goals for IOP treatment. Eye Contact:: Good Motor Activity:: Appropriate Appearance:: Casual Speech:: Appropriate Mood:: Irritable and Depressed Affect:: Congruent Thoughts:: Linear, Logical and No evidence of hallucinations/delusions noted Staff Interventions:: rapport building, treatment planning and other (gathered hx) Client Response:: Pt was encouraged to engage in IOP by his outpatient therapist due to recent decompensation related to psychosocial stressors. Psychiatric admission on 01/16/24 to [facility] due to what he refers to has a panic attacks with bizarre behaviors. Police where called to his ex- 's house as he was pounding on the door. When police arrived pt began to take off his clothes. He states that he felt compelled to take off his clothes for unknown reasons. Refer to pre-admission screening and psych eval for more information. Pt reports previous diagnosis of Bipolar and several medication trials with limited stability. According to pt he often has significant side effects from psychiatric medications. Presents depressed and hopeless today due to not being able to see my kids. Due to recent psychiatric episode which occurred in front of his children the courts suspended his shared custody. I scared them so bad. Guilt and regret. Pt does not agree with Bipolar diagnosis and believes that he is more OCD. 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 Pt met with another hot water heater installer at [facility] who met with him on 03/18/24 and requested documentation from previous admissions and treatment with plan to re-evaluate his diagnosis. In the meantime he had agreed to re-start his Risperdone, which he had stopped shortly after discharge from psych unit in 01/2024. He was honest during the session and admitted that he minimized his alcohol consumption during his previous two IOP admissions. According to pt he was consuming 12-14oz of rum (days when kids were in his custody), smoking cannabis daily, and binge eating daily which impacted his physical and mental health. Risks/Concerns:: Pt denies active suicidal ideations. He reports survival ambivalence and often wishes God would take me away, however is adamant that he has no active thoughts, plan, or intent. Jainism in primary protective factor Progress Toward Goals/Plan:: Limited progress today as this is his first day in IOP. Endorses hopelessness, poor sleep, poor, appetite, low energy, low motivation, no pleasure in activities, and poor focus/memory/concentration. Guilt and constant worry. Going through several court proceedings regarding lifting suspension to have visitation with children. Plan is to admit to IOP with plan to stabilize mood, prevent decompensation, and increase healthy coping skills. Time Stopped:: 12:20
--- NOTE | 2024-04-12 12:30 | BH.MTP_ITS ---
[facility] Treatment Plan Patient Information Program Physician:: Dr. Luciana Correa Primary Therapist:: Danial Knox Psychiatric Diagnoses Psychiatric Diagnoses:: 1. Bipolar disorder type I, most recent episode depressed, severe without psychosis (F31.4) 2. Anxiety disorder, NOS (F41.9) 3. Alcohol use disorder (sober times over 2 months) 5. Marijuana use disorder (sober x 1-1/2 months) Diagnosis Code(s):: f31.4; f41.9 Estimated LOS Estimated LOS (in weeks):: 6 Problem/Goal #1 Problem/Goal #1 Stated Goal:: Achieve controlled behavior, moderated mood, more deliberative speech and thought process, and a stable daily activity pattern. Client will also increase mood stability, reduce depression, and reduce passive thoughts of AEB self-report and reduction of scores of the bipolar and depression domain on the DSM-5 cross-cutting scales. Description of Barriers: hx of non-compliance with medications for bipolar, stigma associated with Bipolar diagnosis. Hx of self-medication through alcohol and binge-eating. Legal issues Functional Impact: Recent manic episode led to criminal legal charges as well as loss of visitation for his children. Goal Relevant Strengths/Supports: Motivated to make changes to obtain visitation for his children. Objectives Objective #1: Stated Objective: Client will increase self-awareness of bipolar illness through education from individual therapist as well as educational handouts. Interventions: Through individual and group counseling will provide education on criteria for Bipolar, define shawn/hypomania, identify warning signs to shawn, and develop an individualized and written Bipolar management plan for patient Discharge Criteria: Complete Bipolar management plan. Target Date: 05/25/24 Review Date: 05/04/24 Objective #2: Stated Objective: Client will identify at least 2-3 negative self-talk messages used to reinforce negative core beliefs and low self-worth and replace thoughts with more realistic messages. Interventions: Through individual and group counseling will assist client in identifying, challenging, and replacing dysfunctional thoughts with positive, more realistic thoughts. Therapist will use CBT and DBT techniques to help client gain awareness of thinking errors and learn how to more effectively handle negative thoughts that reinforce unhealthy coping skills Discharge Criteria: Will be able to identify 2-3 negative self-talk messages and identify 2 strategies to reframe/challenge these thoughts. Target Date: 05/25/24 Review Date: 10/30/24 Problem/Goal #2 Problem/Goal #2 Stated Goal:: Stabilize anxiety level while increasing ability to function on a daily basis AEB self-report and decreased scores on the anxiety domain of the DSM-5 cross-cutting scales Description of Barriers: sporadic motivation, mental health stigma, often is dismissive of treatment and effectiveness of coping skills. Functional Impact: Anxiety often leads to isolation, avoidance, and lack of follow-through. Anxiety, ruminations, and panic are significant trigger to self- medicate through alcohol. Goal Relevant Strengths/Supports: motivate to make changes to obtain visitation with his children. Objectives Objective #1: Stated Objective: Client will learn and implement 4-5 calming skills to reduce overall anxiety and manage anxiety. Interventions: Through individual and group counseling will help client increase awareness of anxiety triggers as well as teach client various calming and mindfulness strategies to promote emotional regulation and reduction of anxiety. Therapist will encourage client to implement/practice healthy coping skills on a regular basis Discharge Criteria: Able to identify and consistently implement 4-5 calming skills. Target Date: 05/25/24 Review Date: 05/04/24
--- NOTE | 2024-04-13 09:00 | BH.SGPN.GN ---
Behaviors/Verbalizations/Mental Status: [] Pt alert and oriented, casually dressed and groomed. Eye contact good. Motor activity appropriate. Speech within normal limits. Affect congruent, mood anxious and depressed. Thoughts linear, logical, no signs of hallucinations or delusions. Reviewed pt?s symptom tracker, no risk for suicidal ideation, plan, or intent 04/13/24 Client Response/Progress/Benefit: []Pt was an active participant in group discussions. Attentive. Able to identify mental health wins including successfully making it to group this morning despite struggling with anxiety. Shared reminding himself of the benefits of attending as well as using opposite action. Additional win noted as successfully losing almost 100 pounds since last february through healthy lifestyle changes. Did well to give himself credit for doing so. Benefited from group support, encouragement, and feedback. Will continue in IOP to prevent decompensation, promote mood stability, and increase application of coping skills. Narrative Note: []
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
--- NOTE | 2024-04-13 11:05 | BH.SGPN.GN ---
Behaviors/Verbalizations/Mental Status: []Eye contact is good. Motor activity is appropriate. Appearance is casual. Speech is Appropriate. Mood is depressed. Affect is congruent. Thoughts are linear and logical. No evidence of psychosis. Client Response/Progress/Benefit: []Pt responded well to session AEB listening attentively to peers and taking notes throughout. Reports connecting most with porous boundaries, especially with his time and emotions. Participated in group discussion brainstorming various strategies for improving healthy boundary setting. Pt reports wanting to avoid vague responses and over-explaining himself. Seemed to benefit from increased awareness of how different boundary styles can impact mental health. Will continue IOP tx to prevent decompensation, improve daily functioning, and increase self-awareness. Narrative Note: []
[2024-04-13 11:41] VITALS: BP 146/98; PULSE 63
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
--- NOTE | 2024-04-13 12:36 | BH.DR.ITP ---
Initial Treatment Plan Patient Information Visit Information: ADMISSION DATE: EXPECTED LOS: 4-6 weeks Problems/Symptoms Problem #1:: Mood instability Symptom:: Depression, sadness, anhedonia, decreased appetite, low energy, decreased concentration, hopelessness, worthlessness, guilt, passive thoughts of . Symptom:: Recent shawn with psychotic features resulting in admission in January 2024. Problem #2:: Anxiety Symptom:: Worry, rumination, panic attacks.
--- NOTE | 2024-04-15 09:00 | BH.SGPN.GN ---
Behaviors/Verbalizations/Mental Status: [] Eye contact is good. Motor activity is appropriate. Appearance is casual. Speech is Appropriate. Mood is depressed. Affect is congruent. Thoughts are linear and logical. No evidence of psychosis. Reviewed daily check in sheet and pt reports 1/5 for thoughts of and 0/5 for intent. This has been baseline since admission. Client Response/Progress/Benefit: [] Pt participated when prompted. Attentive. Daily symptom tracker noted 4/5 for depression and 2/5 for anxiety. Despite this being the most depressed I've ever been I'm doing OK. Remaining active and engaged rather than isolating. Coming here has been helpful. He completed a job interview and was offered a job which he is excited about. I'm a social person. Increased self-esteem that his new employer really like me as he doesn't view himself as being likable. Hopeful. He believes that maintain employment, being stable, and continuing with mental health treatment will be be beneficial for his self-esteem as well as helping him retain shared custody of kids. Progress noted. Will continue in IOP to prevent decompensation/re-admission to psych, stabilize mood, and improve functioning. Narrative Note: []
--- NOTE | 2024-04-15 10:10 | BH.SGPN.GN ---
Behaviors/Verbalizations/Mental Status: [] Pt alert and oriented, casually dressed and groomed. Eye contact good. Motor activity appropriate. Speech within normal limits. Affect congruent, mood depressed. Thoughts linear, logical, no signs of hallucinations or delusions. Client Response/Progress/Benefit: [] Pt participated during small group discussions. Attentive during psychoeducation about defense mechanisms. Showed engagement during small group discussions and helped group identify which defense mechanisms were maladaptive, adaptive, or ?somewhere in the trevizo.? Noted he struggles with denial and intellectualization defense mechanisms. Pt worked with small group on identifying how each defense mechanism can impact mental health and gave examples. ?Seemed to benefit from gaining awareness about the different defense mechanisms. Pt to continue IOP tx to prevent decompensation, stabilize mood, increase healthy coping, and improve functioning. Narrative Note: []
--- NOTE | 2024-04-15 11:10 | BH.SGPN.GN ---
Behaviors/Verbalizations/Mental Status: []Pt alert and oriented, casually dressed and groomed. Eye contact good. Motor activity appropriate. Speech within normal limits. Affect congruent, mood dysthymic and anxious. Thoughts linear, logical, no signs of hallucinations or delusions. Client Response/Progress/Benefit: []Pt responded well to session, participating in activity and small group discussion. Group reviewed the rest of the defense mechanisms and discussed how these are adaptive, maladaptive, or somewhere in the trevizo. Pt participated in the experiential activity which encouraged pts to draw a castle that portrayed their different defense mechanisms. Pt's defense mechanisms included suppression, suppression, rationalization, and anticipation. Pt shared wanting to work on reducing his rationalizations. Pt listened to belt puncher teach different skills to help pt?s cope with or change their defense mechanisms. Pt appeared to benefit from gaining insight to the different defense mechanisms and learning coping skills. Pt will continue IOP tx to prevent decompensation, improve daily functioning, and increase insight. Narrative Note: []
--- NOTE | 2024-04-19 09:05 | BH.MDN_ITS ---
Multi-Disciplinary Note Note 60-min Individual: Time Started:: 09:05 Date: 04/19/24 Purpose of session/treatment goals addressed:: Utilized the session to develop goals for IOP, treatment planning, and to review current sym ptoms/functioning. Eye Contact:: Good Motor Activity:: Appropriate Appearance:: Casual Speech:: Appropriate Mood:: Depressed Affect:: Congruent Thoughts:: Linear, Logical and No evidence of hallucinations/delusions noted Staff Interventions:: psychoeducation on: (Bipolar, hypomania, and shawn), rapport building and treatment planning Client Response:: Pt interviewed and obtained a part-time job last week which he started yesterday. He is very excited about the job as it's the first he has had in 10 years. He believes the job will help him financially as well as provide a distraction from his current mental health struggles and court issues. Pt has not seen his children since January and a protection order remains in effect. He plans to filed a motion to suspend or modify the PO soon. Guilt, embarrassment, and confusion regarding his actions that led to recent psych admission and ultimately lead to PO. According to pt he is compliant with his mood stabilizer however admits remains uncertain of Bipolar diagnosis. Engaged during psychoeducation on shawn, hypomania, and Bipolar. Therapist did challenge pt's perceptions and view on Bipolar in regards to his past symptoms. Risks/Concerns:: Denies active suicidal ideations, plan, or intent. Progress Toward Goals/Plan:: Progress noted as pt remains medication and treatment compliant. Has also remained sober from alcohol and cannabis. Engaged and consistent in IOP level of care. In talking with pt it would appear that both pt's therapist and associate professor of church music at [facility] have both diagnosed him with Bipolar. He sought a second opinion with [facility] last week and she also confirmed the Bipolar diagnosis. Pt admits to stigma associated with this diagnosis and feels that it has been weaponized against him in the past. Open to discussion on Bipolar and the stigma associated with this diagnosis. Has presented with stable mood since starting IOP. Taking responsibility for his behaviors during recent mental health episode in January. Guilt, ruminations, and embarrassment as well as no access to his children have led to depression, isolation, and hopelessness which he reports is constant. Will continue in IOP to prevent decompensation, stabilize mood, and increase healthy coping. Time Stopped:: 10:00
--- NOTE | 2024-04-19 10:15 | BH.SGPN.GN ---
Behaviors/Verbalizations/Mental Status: []Pt alert and oriented, casually dressed and groomed. Eye contact good. Motor activity appropriate. Speech within normal limits. Affect congruent, mood content. Thoughts linear, logical, no signs of hallucinations or delusions. ? Client Response/Progress/Benefit: []Pt responded well to session, attentive and engaged. Pt participated in activity where pts had to guess the celebrity with a known mental health diagnosis and this led to discussion on self-stigma. Group participated in the discussion defining stigma as well as what stigma has kept pt's from doing in their lives. Pt stated mental health stigma has led pt to not reach out for help and isolate instead. Pt admits that he assumes others will not understand or will treat him poorly. Pt worked with peers to begin discussion of what reinforces stigma and this was discussed further in the next group. Pt appeared to benefit from learning about the different types of stigma as well as gaining awareness of how stigma has personally impacted pt. Pt will continue IOP tx to promote mood stability, increase consistent use of healthy coping skills, and prevent decompensation. Narrative Note: []
--- NOTE | 2024-04-19 11:15 | BH.SGPN.GN ---
Behaviors/Verbalizations/Mental Status: []Pt alert and oriented, casually dressed and groomed. Eye contact fair. Motor activity appropriate. Speech within normal limits. Affect constricted, mood depressed. Thoughts linear, logical, no signs of hallucinations or delusions. Client Response/Progress/Benefit: [] Pt engaged participant AEB participating in the activity, providing input during small group discussion, and listening attentively to others. Pt appeared to connect with discussion in the benefits of addressing mental health stigma which included: improved relationships, increased willingness to seek help, increased happiness, and improved confidence. Group brainstormed strategies to combat social and perceived stigma. Pt shared one thing pt can do to combat self-stigma is to start saying positive affirmations.. Appeared to benefit from increasing awareness of strategies to combat stigma. Will continue IOP tx to increase consistent use of healthy coping skills, improve view of self, and prevent decompensation.
--- NOTE | 2024-04-21 09:00 | BH.SGPN.GN ---
Behaviors/Verbalizations/Mental Status: [] Pt alert and oriented, casually dressed and groomed. Eye contact good. Motor activity appropriate. Speech within normal limits. Affect flat, mood depressed. Thoughts linear, logical, no signs of hallucinations or delusions. Reviewed pt?s symptom tracker, no risk for suicidal ideation, plan, or intent 04/21/24 Client Response/Progress/Benefit: []Pt was a passive participant in group session today. Pt declined to share during his turn for morning check-in/self-reflection. Pt appeared to still benefit from being around others instead of isolating at home. Pt struggles with verbalizing his needs and emotions, especially around peers. Pt will continue in IOP to prevent decompensation, improve daily functioning, and reduce isolation. Narrative Note: []
--- NOTE | 2024-04-21 10:10 | BH.SGPN.GN ---
Behaviors/Verbalizations/Mental Status: [] Eye contact is good. Motor activity is appropriate. Appearance is casual. Speech is Appropriate. Mood is content. Affect is congruent. Thoughts are linear and logical. No evidence of psychosis. Client Response/Progress/Benefit: [] Pt receptive of session, actively engaged throughout AEB taking notes, providing input, and contributing in small group discussion. Appeared to connect with group topic of automatic thoughts and cognitive distortions, as well as the impact of thought patterns on mental health, coping behaviors, and relationships. This particular group is very heavy on psychoeducation and pt appeared to connect with distortions and how they can impact functioning. Identified struggling with Labeling distortion. Pt appeared to benefit from gaining insight on distorted thinking patterns and how this impacts overall mental health. Will continue IOP to stabilize mood, improve ability to function, and prevent decompensation. Narrative Note: []
--- NOTE | 2024-04-21 11:10 | BH.SGPN.GN ---
Behaviors/Verbalizations/Mental Status: [] Eye contact is good. Motor activity is appropriate. Appearance is casual. Speech is Appropriate. Mood is content. Affect is congruent. Thoughts are linear and logical. No evidence of psychosis. Client Response/Progress/Benefit: [] Pt was an active participant during group discussion. Pt was placed in a smaller group and participated in combatting example distortions with peers. Pt was engaged in the smaller group, participated in group interactions to brainstorm answers, and appeared to be comprehending cognitive distortions. Pt stated could connect with many of the distortions covered in group. Pt stated he has learned from group today that he has to be more careful about disqualifying the positives. Benefited from gaining further insight and awareness of cognitive distortions as well as practicing ways to reframe and challenge thoughts. Will continue in IOP tx to improve outlook, increase healthy coping skills, and prevent decompensation. Narrative Note: []
--- NOTE | 2024-04-22 09:05 | BH.SGPN.GN ---
Behaviors/Verbalizations/Mental Status: [] Eye contact is good. Motor activity is appropriate. Appearance is casual. Speech is Appropriate. Mood is depressed. Affect is flat. Thoughts are linear and logical. No evidence of psychosis. Reviewed daily check in sheet and no reports of suicidal ideations or intent. Client Response/Progress/Benefit: [] Pt did not participate in group discussions. Declined to check in or share when asked. ?I?m going to cope out today?. Pt was overheard stating that first group is difficult due to others sharing about their children and he hasn?t seen his since January. No progress noted. Daily symptom tracker notes 4/5 for depression and anxiety. Continues to ruminate extensively on past actions. Guilt. Regret. Limited benefit from group. Will continue in IOP to prevent decompensation, stabilize mood, and increase healthy coping. Narrative Note: []
--- NOTE | 2024-04-22 10:15 | BH.SGPN.GN ---
Behaviors/Verbalizations/Mental Status: [] Eye contact is good. Motor activity is appropriate. Appearance is casual. Speech is Appropriate. Mood is depressed. Affect is congruent. Thoughts are linear and logical. No evidence of psychosis. Client Response/Progress/Benefit: [] Pt engaged participant AEB listening to others, engaging in activity, and providing feedback at times. Attentive during psychoeducation and provided insight into obstacles that impede mental wellness. Pt shared with group current mental health reality and desired mental health reality, noting that he feels like fragments of himself. Desires a sense of wholeness and connection with support. Identified barriers to desired reality include: negative self-talk, fear of failure, and lack of acceptance. Benefited from taking look at current mental health state and obstacles for progress. Pt to continue IOP tx to decrease depression, improve thought challenging skill application, and prevent decompensation. Narrative Note: []
--- NOTE | 2024-04-27 09:05 | BH.SGPN.GN ---
Behaviors/Verbalizations/Mental Status: [] Eye contact is poor. Motor activity is appropriate. Appearance is casual. Speech is Appropriate. Mood is depressed. Affect is flat. Thoughts are linear and logical. No evidence of psychosis. Reviewed daily check in sheet and no reports of suicidal ideations or intent. Client Response/Progress/Benefit: [] Pt participated when prompted. Attentive. Shared with the group that he visited with his adult daughter and his grandson over the weekend which was beneficial. He continues to ruminate extensively on his current legal stressors and inability to visit with his children. ? I?m constantly anxious and in distress?. No progress noted. Struggling to utilize skills as he does not believe any intervention will be helpful aside from visiting with his children. Limited benefit from group. Will continue in IOP to prevent decompensation, stabilize mood, and increase healthy coping. Narrative Note: []
--- NOTE | 2024-04-27 10:10 | BH.SGPN.GN ---
Behaviors/Verbalizations/Mental Status: [] Client alert and oriented, casually dressed and groomed. Eye contact fair. Motor activity appropriate. Speech within normal limits. Affect congruent, mood dysthymic. Thoughts linear, logical, no signs of hallucinations or delusions. Client Response/Progress/Benefit: [] Pt responded well to session AEB sharing and listening attentively to others. Group provided examples of benefits of having social support, including: validation, get assistance, and accountability. Pt also participated in group discussion regarding the barriers to accessing support identifying examples to include: negative thinking, lack of communication, and lack of trust. Pt participated in experiential activity illustrating the impact communication, boundaries, and patience play in creating healthy support systems. Pt appeared to benefit from increased knowledge of the benefits of social support and greater self-awareness. Pt to continue IOP to improve mood stability, increase consistent use of healthy coping skills, and prevent decompensation.
--- NOTE | 2024-04-27 12:18 | PCM.BH.PN ---
Progress Note Progress Note: History of Present Illness/Interim History: The patient is a 49-year-old male with a history of bipolar 1 disorder with psychotic features, anxiety, depression and alcohol use disorder (sober times about 9 or 10 weeks) who is seen in follow-up at the [facility] behavioral health IOP. I last saw the patient 2 weeks ago at that time no medication changes were made as the patient refused any medication changes and in fact refused the diagnosis of bipolar disorder. The patient's symptoms remain essentially unchanged with his mood remaining depressed with anhedonia, low energy, occasional hopelessness, worthlessness and guilt. He has occasional passive thoughts of but denies suicidal ideation, plan for suicide, homicidal ideation, hallucinations or delusions. Sleep is about 6 or 7 hours a night. He remains sober from alcohol and marijuana. Today since seeing the provider and his psychiatrist office he seems more willing to accept a diagnosis of bipolar disorder since they corroborated our diagnosis of bipolar 1 disorder. The patient is still very resistant to taking any medications. Current Psychiatric Medications: [] Risperidone 0.5 mg p.o. nightly (x 4 weeks), BuSpar 5 mg p.o. nightly (started 1 to 2 weeks ago by outpatient provider). Mental Status Examination: [] The patient is a 49-year-old overweight male who appears a little older or normal for stated age and is casually dressed and groomed with good hygiene. He is ambulatory with a normal gait and has no psychomotor agitation or retardation. Eye contact is good and speech is normal rate and rhythm and fluent with no pressure. Mood is depressed. Affect is mildly constricted. Thought process is goal-directed and organized. Thought content: The patient is much more accepting that he may have bipolar disorder and acknowledges the trouble his mood disorder has caused him. He remains resistant to medication as he has had bad side effects on it in the past. There is no evidence of passive thoughts of , suicidal ideation, plan for suicide, homicidal ideation, hallucinations, delusions or symptoms of shawn. Reality testing is intact. Judgment is intact. Insight may be improving but remains limited. Impulsivity is high. Diagnoses: [] 1. Bipolar disorder type I, most recent episode depressed, severe without psychosis (F31.4) 2. Anxiety disorder, NOS (F41.9) 3. Alcohol use disorder (sober times over 2 months) 5. Marijuana use disorder (sober x 1-1/2 months) 6. Hypertension 7. History of medication noncompliance 8. Primary support and legal issues Plan: [] The patient will continue the IOP and behavioral health at [facility] as the structure, support, education and group therapy will hopefully prevent worsening of the patient's symptoms. He felt safe during the interview and if it anytime he does not feel safe he agrees to let us know or go to the emergency room. The patient's insight is improving into the fact that he does have significant mood disorder and it has severely affected his quality of life and because of the custody problems he now has with seeing his children. He is softening his resistance against medication. Long discussion was had today that I would strongly recommend that he change from risperidone to Vraylar and also take low-dose lithium at least as that is the current standard of care for people with bipolar 1 disorder in 2023. The patient refuses to change to Vraylar or add lithium as he did not like being on lithium in the past. He does agree to increase his Risperdal to 1 mg p.o. daily in the hopes that if it is doing anything to help with his moods or possibly help reduce the chance of shawn with psychosis that this dose is better than the lower dose. He also agrees to stay sober from alcohol and marijuana and understands that the marijuana could also increase his risk of psychosis if he does get manic. He will continue to follow-up with his outpatient providers and I will see the patient in follow-up in 2 weeks. Discussion was also had that the patient needs to really become aware of when he thinks his mood is changing and entering even a small low level of hypomania so that he can increase his medication use immediately to prevent a catastrophic shawn that he has had in the past. He is also encouraged to keep regular sleep-wake hours and minimize stress and eat healthily.
--- NOTE | 2024-04-28 09:00 | BH.SGPN.GN ---
Behaviors/Verbalizations/Mental Status: [] Pt alert and oriented, casually dressed and groomed. Eye contact good. Motor activity appropriate. Speech within normal limits. Affect flat, mood depressed. Thoughts linear, logical, no signs of hallucinations or delusions. Reviewed pt?s symptom tracker, no risk for suicidal ideation, plan, or intent 04/28/24 Client Response/Progress/Benefit: []Pt was a passive participant in group discussions. Attentive. Able to identify mental health wins including coming to IOP and that's about it. Pt's stressor today is that he feels alone and hopeless due to his current situation. Pt does not have custody of his children and has not seen them in months. Pt has legal things going on with this and pt was reminded that he cannot tipton the court, but he can remind himself of all he is doing to help his case and mental health. Pt stated he is feeling heartbroken this morning. Pt receptive to feedback from peers which pt reported was helpful. Progress noted. Benefited from group support, encouragement, and feedback. Will continue in IOP to prevent decompensation, improve daily functioning, and increase use of healthy coping skills. Narrative Note: []
--- NOTE | 2024-04-28 11:25 | BH.MDN ---
Multi-Disciplinary Note Note 60-min Individual: Time Started:: 11:25 Date: 04/28/24 Purpose of session/treatment goals addressed:: Reviewed current symptoms and progress in IOP. Used the session to identify strategies for coping with guilt. Eye Contact:: Good Motor Activity:: Appropriate Appearance:: Casual Speech:: Appropriate Mood:: Irritable and Depressed Affect:: Congruent Thoughts:: Linear, Logical and No evidence of hallucinations/delusions noted Staff Interventions:: thought challenging, psychoeducation on: (guilt) and mindfulness skills (taught breathing and mindfullness skills for [id number] anxiety and ruminations) Client Response:: Pt reports that he continues to ruminate extensively on his past manic episode which has resulted in a PO being put in place. Pt has been unable to visit in-person with his children since January. Significant guilt as his children witnessed his episode and according to pt have been impacted. Identified 4 healthy strategies to manage guilt (taking responsibility, focusing on what he can control, self-compassion, and seeing mistakes as opportunities). We spent time discussing each with and ways to practice these strategies. Pt called off work recently due to panic attack. Allowed him to process and we again identified breathing skills, mindfulness skills, thought challenging, and opposite-action. Risks/Concerns:: Denies active suicidal ideations, plan, or intent. Protective factors are latter-day and his children. Future-oriented. No access to guns. Progress Toward Goals/Plan:: Progress noted as pt is medication compliant, treatment compliant, and denies alcohol/drug use. He continues to struggle with stigma related to dx of Bipolar however has accepted that he must remain on medications to prevent another event and to regain shared custody. He spent time with his adult daughter who lives out of town this weekend which was beneficial. According to pt he is constantly thinking about recent manic episode which led to psych admission and temporary loss of custody. Guilt. He is allowed to communicate via text with his 17 y/o daughter however believes he cannot regain trust and foster a relationship through text. Challenged these thoughts and perspective. Encouraged him to view texting as an opportunity and focus on what he can control with building trust (guilt strategies). Identified healthy ways to communicate via text to daughter. Will continue in IOP to prevent decompensation, stabilize mood, and improve healthy coping. Time Stopped:: 12:25
--- NOTE | 2024-05-03 10:15 | BH.SGPN.GN ---
Behaviors/Verbalizations/Mental Status: [] Eye contact is good. Motor activity is appropriate. Appearance is casual. Speech is Appropriate. Mood is depressed. Affect is constricted. Thoughts are linear and logical. No evidence of psychosis. Client Response/Progress/Benefit: [] Pt was an active participant in group discussions. Attentive during psychoeducation on the 4 communication styles (Passive, Passive-Aggressive, Aggressive, and Assertive) and the obstacles to effective communication. ?Opted not to share his Self-identified barrier preventing him from communicating when they need to or want to. Attentive and taking notes during interactive discussion on the benefits of communicating effectively which included; having one's needs met, decreases stress and uncertainty, improved relationships, healthier boundaries, and avoids unnecessary conflict. Worked well with peers to identify the benefits and disadvantages to the different communication styles. Benefited from increased understanding of communication styles and how these can impact effective communication. Will continue in IOP tx to prevent decompensation, improve mood stability and promote application of healthy coping skills. Narrative Note: []
--- NOTE | 2024-05-03 11:10 | BH.SGPN.GN ---
Behaviors/Verbalizations/Mental Status: []Pt alert and oriented, casually dressed. Eye contact fair. Motor activity appropriate. Speech within normal limits. Affect flat, mood depressed. Thoughts linear, logical, no signs of hallucinations or delusions. Client Response/Progress/Benefit: [] Pt responded well to session AEB Pt listening attentively to others and providing input during group discussion on the pay offs and costs of the different communication styles. Pt able to connect how current communication style impacts mental health. Connected with peers? comments about importance of using assertive communication. Pt did well with practicing being assertive in the group activity and worked with group to identify potential skills for improving communication skills. Pt stated he will practice being assertive because he knows being passive is worsening his confidence. Pt seemed to benefit from increasing awareness of healthy strategies to improve communication. Will continue IOP tx to increase follow through with goals, improve view of self, focus on what's in his control, and prevent decompensation.
--- NOTE | 2024-05-04 09:00 | BH.MDN ---
Multi-Disciplinary Note Note 60-min Individual: Time Started:: 09:00 Date: 05/04/24 Purpose of session/treatment goals addressed:: Utilized the session to review progress and current symptoms. Addressed treatment plan goal 1 Eye Contact:: Good Motor Activity:: Appropriate Appearance:: Casual Speech:: Appropriate Mood:: Depressed Affect:: Congruent Thoughts:: Linear, Logical and No evidence of hallucinations/delusions noted Staff Interventions:: thought challenging Client Response:: Pt continues to report significant depression which impacts his functioning. Inability to focus or concentrate on much outside of his current legal stressors and strained relationship with kids. Pre-trail is set for tomorrow regarding criminal charges related to recent manic episode in 01/2024. Pt's spirituality is important to him and he reports I can't understand why God would put me through all of this. I can't see any benefit. Decreased purpose and meaning which has impacted his college courses leading to possibility dropping out. Session focused on challenging certain thoughts and perspectives. Also discussed the role that acceptance can have in growth and combating stigma. Continued education on Bipolar and shawn. Risks/Concerns:: Since entering IOP pt has reported survival ambivalence and passive thoughts of sometimes I wish I was . Adamantly denies any thoughts about intentionally harming himself. Denies SI, plan, or intent. Protective factors are jainism and children. No access to guns. Progress Toward Goals/Plan:: Limited progress due to significant psychosocial stressors, however he remains medication and treatment compliant. Also continues to follow through with recent employment. Struggles to utilize skills discussed throughout IOP as he believes he will only improve once legal issues are resolved and he is able to see his kids again. Despite stigma related to Bipolar dx he has been medication compliant and appears receptive to education on Bipolar, hypomania, and shawn. Spirituality has always been an important part of his life and he has not engaged with or gotten support from his orthodox since 01/2024 which he believes has impacted his sense of meaning. He also received social support through orthodox in the past which decreased isolative behaviors. Recent negative experiences with his previous orthodox and is seeking a more liberal orthodox in the area. We discussed some options and he agreed to research further. He presents as more engaged, energetic, and passionate when discussing his luis eduardo during the session, which speaks to the role his spirituality has on his life. No indications of shawn or hypomania. According to pt her remains sober as well. He does report binge eating at times which provides comfort. Will continue in IOP to maintain safety, stabilize mood, and improve functioning. Time Stopped:: 10:00
--- NOTE | 2024-05-04 10:10 | BH.SGPN.GN ---
Behaviors/Verbalizations/Mental Status: [] Pt alert and oriented, casually dressed and groomed. Eye contact good. Motor activity appropriate. Speech within normal limits. Affect congruent, mood depressed and anxious. Thoughts linear, logical, no signs of hallucinations or delusions. Client Response/Progress/Benefit: [] Pt did not participate in large group discussions on defining conflict (internal/external) and possible benefits to conflict however did participate in small groups. Attentive during psychoeducation on conflict styles (avoidant, accommodating, competing, cooperative) and attentive during group discussion in which peers identified the benefits and consequences to each conflict style. Pt choose not to share or complete worksheet regarding his conflict styles. Attentive during group however limited engagement and tends to not complete written tasks. Benefited from increased awareness of the impact of conflict styles in mental health. Will continue in IOP tx to prevent decompensation, maintain safety, increase healthy coping, and improve functioning. Narrative Note: []
--- NOTE | 2024-05-04 11:10 | BH.SGPN.GN ---
Behaviors/Verbalizations/Mental Status: []Eye contact is good. Motor activity is appropriate. Appearance is casual. Speech is Appropriate. Mood is depressed. Affect is congruent. Thoughts are linear and logical. No evidence of psychosis. Client Response/Progress/Benefit: [] Pt was an active participant in group discussions and activity. Engaged with peers in activity and identifying healthy ways to approach each conflict scenario. Group discussed various conflict resolution skills that can be useful in addressing conflict outside of IOP. Benefited from practicing and learning conflict resolution skills during group activity. Able to identify areas pt wants to work on to improve how pt manages conflict both internally and externally. Expressed wanting to work on their communication skills to better advocate for his needs. Will continue in IOP to improve mood stability and confidence, and prevent decompensation. Narrative Note: []
--- NOTE | 2024-05-04 13:00 | BH.MTP_ITS ---
Treatment Plan Review Demographics Date of Admission:: 04/12/24 Date of Treatment Plan Review:: 05/04/24 Admitting Diagnoses:: 1. Bipolar disorder type I, most recent episode depressed, severe without psychosis (F31.4) 2. Anxiety disorder, NOS (F41.9) 3. Alcohol use disorder (sober times over 2 months) 5. Marijuana use disorder (sober x 1-1/2 months) Current Diagnoses:: 1. Bipolar disorder type I, most recent episode depressed, severe without psychosis (F31.4) 2. Anxiety disorder, NOS (F41.9) 3. Alcohol use disorder (sober times over 2 months) 5. Marijuana use disorder (sober x 1-1/2 months) Patient Status Patient's Response to Treatment:: Limited progress due to significant psychosocial stressors, however he remains medication and treatment compliant. Also continues to follow through with recent employment. Struggles to utilize skills discussed throughout IOP as he believes he will only improve once legal issues are resolved and he is able to see his kids again. Despite stigma related to Bipolar dx he has been medication compliant and appears receptive to education on Bipolar, hypomania, and shawn. Spirituality has always been an important part of his life and he has not engaged with or gotten support from his zoroastrian since 01/2024 which he believes has impacted his sense of meaning. Consistent attendance however limited engagement during group discussions and activities. He struggles when topics or discussions occur in which children are mentioned. This is trigger for him due to recently losing visitation with his children due to manic episode. Discussions or triggers that remind him of this often cause him to leave group or disengage. Daily ruminations and guilt related to manic episode and the impact it has had on his relationships with his children. I can't stop thinking about it. Does not find coping, calming, or reframing skills effective. Status of Current Problems and Symptoms: As mentioned above limited progress noted. No signs of hypomania or shawn since admission. Presents in depressive episode. Endorses significant anxiety and guilt. Also continues to report frequent passive thoughts of and survival ambivalence. Pt continues to report significant depression which impacts his functioning. Inability to focus or concentrate on much outside of his current legal stressors and strained relationship with kids. Pt's spirituality is important to him and he reports I can't understand why God would put me through all of this. I can't see any benefit. Decreased purpose and meaning which has impacted his college courses leading to possibility dropping out. Overall outcome scores show no change since admission which does indicate no decompensation. No change on scores on the depression domain, scores on the anxiety domain decreased 11%, and scores on the repetitive thoughts/behaviors decreased 28%. No change on the shawn domain as pt reported no shawn symptoms at admission and currently (0/8). Progress Problem #1: Problem Name:: Mood Instability Status of Goals:: Obj 1- Progress. receptive to education on Bipolar and is less dismissive of Bipolar as a diagnosis that pertains to his symptoms. Obj2- incomplete- Able to identify negative self-talk messages however has struggled to utilize strategies to alleviate distress Team Recommendations:: No recommendations. Encouraged to continue with current plan. Problem #2: Problem Name:: Anxiety Status of Goals:: Obj 1- Incomplete. Pt is able to identify several calming skills and has practiced them with therapist, however struggles with motivation to implement or practice these skills as he believes they will be ineffective. Team Recommendations:: Encouraged to continue to work on strategies to manage guilt and acceptance. Also encouraged to help client focus on what he can control rather than what he believes he has lost. Increased focus on increasing sense of control.
== END 2024-05-05 23:59 ==
LOC: BHIOP 08:00
PROVIDERS: PCP Nurse Practitioner Family; Referring Provider Psychiatry & Neurology Psychiatry; Visit Provider Psychiatry & Neurology Psychiatry
DX: F31.4 Bipolar disorder, current episode depressed, severe, without psychotic features (principal); F41.9 Anxiety disorder, unspecified; F10.90 Alcohol use, unspecified, uncomplicated; F12.90 Cannabis use, unspecified, uncomplicated; I10 Essential (primary) hypertension
CPT/HCPCS: S9480; 90837; 90853

== ENCOUNTER 2024-05-06 08:00 | Outpatient (RCR) | payer MEDICARE, MEDICAID, SELFPAY ==
[2024-05-06 00:51] VITALS: BP 146/98; PULSE 63
--- NOTE | 2024-05-11 09:00 | BH.SGPN.GN ---
Behaviors/Verbalizations/Mental Status: [] Eye contact is good. Motor activity is appropriate. Appearance is casual. Speech is Appropriate. Mood is depressed. Affect is congruent. Thoughts are linear and logical. No evidence of psychosis. Reviewed daily check in sheet and no reports of suicidal ideations or intent. Client Response/Progress/Benefit: [] Pt participated when prompted. Attentive. According to pt he has felt like he's in the depths of Hell since January due to not being able to see his kids however has had some reprieve recently. Shared that a friend of his unexpectedly reached out and stopped over his house. They spent time together and he felt connected again to his friend and his spirituality which he has been avoiding since a bad experience at his former [facility]. I really needed that. Insight that social engagement and spirituality are important for his mental health, purpose, and meaning. Progress noted. Benefited from group support, encouragement, and feedback. Will continue in IOP to prevent decompensation, stabilize mood, and increase healthy coping. Narrative Note: []
--- NOTE | 2024-05-11 10:15 | BH.SGPN.GN ---
Behaviors/Verbalizations/Mental Status: [] Eye contact is good. Motor activity is appropriate. Appearance is casual. Speech is Appropriate. Mood is anxious and content. Affect is congruent. Thoughts are linear and logical. No evidence of psychosis. Client Response/Progress/Benefit: [] Pt receptive to session AEB listening attentively to others and taking notes. Pt attentive and contributing throughout psychoeducation on the cognitive triangle and maintenance cycles. Pt engaged during group discussion reviewing the impact of daily activities and behaviors in either reinforcing unhealthy maintenance cycles and depression or assisting in reducing symptoms (?down? vs ?up? activities). Pt identified personal ?down? activities they engage in as: avoiding tasks, shutting down, and isolating. Attentive during discussion on Common ?Up? activities Pt identified theirs to include: time with kidsy, taking care of basic needs, and time with luis eduardo. Appeared to benefit from increased awareness of current behaviors and impact these have on mental health. Will continue IOP to improve mood stability, prevent decompensation, and reduce negative thinking patterns. ?? Narrative Note: []
--- NOTE | 2024-05-11 11:15 | BH.SGPN.GN ---
Behaviors/Verbalizations/Mental Status: []Eye contact is fair. Motor activity is appropriate. Appearance is casual. Speech is Appropriate. Mood is dysthymic. Affect is congruent. Thoughts are linear and logical. No evidence of psychosis. Client Response/Progress/Benefit: [] Pt responded well to session, attentive and engaged in group discussions and activity. Actively engaged in continued discussion about up activities and down activities. Active participant as group discussed values and the benefits that knowing one's values can have on one's mental health. Pt completed personal cognitive triangle negative loop. Pt set a goal to use opposite action by making himself go for a walk to break the cycle of sitting on his couch binge watching tv and binge eating junk food. Benefited from increased awareness of their personal values and how incorporating their values into behavioral activation goals can positive impact mental health. Will continue in IOP to improve daily functioning, challenge distortions, and prevent decompensation.
--- NOTE | 2024-05-12 10:15 | BH.SGPN.GN ---
Behaviors/Verbalizations/Mental Status: []Client alert and oriented, casually dressed and groomed. Eye contact good. Motor activity appropriate. Speech within normal limits. Affect congruent, mood depressed. Thoughts linear, logical, no signs of hallucinations or delusions. Client Response/Progress/Benefit: [] Pt responded well to session, contributing to discussion and engaged during the activity. Group identified the benefits of change which included: better mental health, increased confidence, and improved relationships. Worked with the group to identify barriers to change, which included: uncomfortable emotions such as anxiety, lack of motivation, fear of failure, negative self-talk, and change not happening fast enough. Pt participated along with group in activity where they identified and discussed the emotions related to change. Pt discussed how even difficult emotions can push you to make meaningful change. Benefited from increased awareness and understanding of emotions, benefits, and barriers related to change. Will continue IOP tx to improve daily functioning, reduce isolation, and increase use of healthy coping skills. Narrative Note: []
--- NOTE | 2024-05-12 11:15 | BH.SGPN.GN ---
Behaviors/Verbalizations/Mental Status: []Client alert and oriented, casually dressed and groomed. Eye contact good. Motor activity appropriate. Speech within normal limits. Affect congruent, mood depressed. Thoughts linear, logical, no signs of hallucinations or delusions. Client Response/Progress/Benefit: [] Pt responded well to session, attentive throughout. Did well to actively listen and contributed when prompted as group worked to process activity. Pt worked with group to relate the strategies used to overcome barriers in the activity to managing change in own life. Pt identified a change they would like to make is ?breaking cycles of my negative thoughts.? Pt identified currently being in the preparation/action stage for this change. Pt said continuing to journal consistently can help pt get to the next stage. Appeared to benefit from identifying a change they want and how to progress. Pt will continue IOP tx to prevent decompensation, gain healthy coping skills, and improve social support. Narrative Note: []
--- NOTE | 2024-05-17 09:05 | BH.MDN_ITS ---
Multi-Disciplinary Note Note 60-min Individual: Time Started:: 09:05 Date: 05/17/24 Purpose of session/treatment goals addressed:: Reviewed DSM outcomes data and discussed discharge. Eye Contact:: Good Motor Activity:: Appropriate Appearance:: Casual Speech:: Appropriate Mood:: Depressed Affect:: Congruent Thoughts:: Linear, Logical and No evidence of hallucinations/delusions noted Staff Interventions:: discharge planning and reviewed DSM-5 Client Response:: Pt continues to report medication compliance, sobriety, and has been consistent with employment. Reviewed outcomes scores with pt which shows no change since admission on which suggests no decompensation. No change in scores on the depression domain, scores on the anxiety domain decreased 11%, and scores on the repetitive thoughts/behaviors decreased 28%. No change on the shawn domain as pt reported no shawn symptoms at admission and currently (0/8). Denies any suicidal ideations or thoughts of killing self since admission, however passive thoughts and survival ambivalence which began in 01/2024 still occur. Pt continues to struggle with situational stressors which include loss of visitation with children and criminal court charges which contribute to limited decrease in outcome scores. Despite psychosocial stressors pt has maintained employment (has not worked in 10 years), is medication compliant, and has remained sober. Additional discussion on Bipolar Management Plan. Pt asked several questions regarding preventing another manic episode and prognosis which we discussed. Over the past week pt has re-engaged in spirituality. A close friend came to his house and they prayed together which was beneficial. He also attended a spiritual summit over the weekend with his friend which was very helpful. Risks/Concerns:: No risks or concerns noted. Denies active suicidal ideations, plan, or intent. Progress Toward Goals/Plan:: Discussion was had on discharge with patient and an agreement was made to discharge this week. As noted above pt has been medication compliant, consistent with IOP treatment, sober, and has started and maintained a new job. Outcomes scores indicate no decompensation since admission as well as slight decrease in anxiety and repetitive thoughts. Staff has not witnessed any symptoms or indications of shawn or hypomania. Pt and therapist have worked on Bipolar Management plan which will be finalized and printed out, he is able to identify negative self-talk statements, and is able to identify 4- 5 calming skills . While pt has struggled to implement calming, reframing, and other healthy skills he is aware of these skills. Pt's non-compliance with medications in the past has resulted in periods of shawn and psychosis which had significantly impacted his relationships, employment, and education. At this moment he has been medication compliant for several months and presents as the most receptive to the Bipolar dx and continued medication compliance than he has been in past IOP admissions. Current situational stressors (loss of custody and legal charges) have impacted progress in IOP however he has managed to remain stable despite these significant stressors therefore pt will be discharged. Completed treatment plan goals. Encouraged to continue with weekly individual counseling with Tamara Barraza at [facility] and medication management through [facility]. Time Stopped:: 10:00
--- NOTE | 2024-05-17 10:15 | BH.SGPN.GN ---
Behaviors/Verbalizations/Mental Status: []Pt alert and oriented, casually dressed and groomed. Eye contact fair. Motor activity appropriate. Speech within normal limits. Affect constricted, mood depressed. Thoughts linear, logical, no signs of hallucinations or delusions. Client Response/Progress/Benefit: [] Pt was attentive during psychoeducation and participated in group activity. Group discussed what contributes to a person?s perspective and how perspective can positively or negatively impact mental health treatment. Pt reflected on their perspective today and how it is impacting them. Pt shared his current perspective about mental health treatment is closer to negative because the contributing factor to his depression is a external stressor that he has no control over. Pt appeared to benefit from increasing awareness of different perspectives and how they can affect mental health. Pt will continue IOP tx to focus on what's within his control, challenge distortions, and prevent decompensation.
--- NOTE | 2024-05-17 11:18 | BH.SGPN.GN ---
Behaviors/Verbalizations/Mental Status: []Pt alert and oriented, casually dressed and groomed. Eye contact good. Motor activity appropriate. Speech within normal limits. Affect congruent, mood depressed. Thoughts linear, logical, no signs of hallucinations or delusions. Client Response/Progress/Benefit: []Pt was attentive and contributed to group discussion. Pt worked with group to identify strategies that can help with challenging negative perspective. Pt stated he can remind self that things have gotten better in the past as a way to challenge negative perspective. Pt completed strengths exploration worksheet, identifying his personal strengths. Pt able to acknowledge how these strengths are helping pt and can continue to help pt in mental health journey. Pt identified wanting to work on leaning on strength of spirituality and to practice skill of daily prayer. Benefited from identifying personal strengths and strategies for enhancing use of identified strengths. Pt will continue IOP tx to continue practice healthy coping skills, build confidence, and prevent decompensation. Narrative Note: []
--- NOTE | 2024-05-18 09:05 | BH.SGPN.GN ---
Behaviors/Verbalizations/Mental Status: [] Pt alert and oriented, casually dressed and groomed. Eye contact good. Motor activity appropriate. Speech within normal limits. Affect congruent, mood depressed. Thoughts linear, logical, no signs of hallucinations or delusions. Reviewed pt?s symptom tracker, no risk for suicidal ideation, plan, or intent 05/18/24 Client Response/Progress/Benefit: [] Pt was a passive participant in group discussions. Attentive throughout however. Continues to decline sharing in group and appears to be struggling with negative thinking at times throughout. Benefited from group support, encouragement, and feedback. Will continue in IOP to prevent decompensation, promote mood stability, and continue to improve use of healthy coping skills. Narrative Note: []
--- NOTE | 2024-05-18 10:15 | BH.SGPN.GN ---
Behaviors/Verbalizations/Mental Status: []Eye contact is good. Motor activity is appropriate. Appearance is casual. Speech is Appropriate. Mood is calm. Affect is congruent. Thoughts are linear and logical. No evidence of psychosis. Client Response/Progress/Benefit: [] Pt was engaged and participating throughout, providing input and taking notes. Participated in an interactive discussion on defining anxiety and identifying cognitive and physiological symptoms of anxiety. The group discussed the role of anxiety on isolation, avoidance, and who this emotion impacts their ability to start and complete activities/goals. Pt identified their physical/physiological signs of anxiety (i.e. numbness, tension, and headache). Pt identified safety behaviors (i,e isolation, eating junk food, and smoking.) Benefited from increased awareness and insight on anxiety and its impact. Will continue in IOP to reinforce healthy coping skills and improve mood stability. Narrative Note: []
--- NOTE | 2024-05-18 11:10 | BH.SGPN.GN ---
Behaviors/Verbalizations/Mental Status: [] Pt alert and oriented, casually dressed and groomed. Eye contact fair. Motor activity appropriate. Speech within normal limits. Affect constricted, mood dysthymic. Thoughts linear, logical, no signs of hallucinations or delusions. Client Response/Progress/Benefit: [] Pt was an active participant AEB pt providing input and listening attentively to peers. Attentive during psychoeducation on mindfulness coping skills and their impact on reducing anxiety and improving overall mental health wellness. Group was able to identify self-soothing and mind-based coping skills which included: 5-senses, meditation, deep breathing, TIPP, thought challenging, and progressive muscle relaxation. Pt also participated with peers in practicing mindfulness skills in session including deep breathing. Pt would like to work on using breathing exercises and increase physical activity to manage anxiety. Appeared to benefit from increasing repertoire of anxiety reduction skills. Pt will continue in IOP tx to maintain mood stabilization, improve view of self, and prevent decompensation.
--- NOTE | 2024-05-19 09:00 | BH.SGPN.GN ---
Behaviors/Verbalizations/Mental Status: [] Eye contact is good. Motor activity is appropriate. Appearance is casual. Speech is Appropriate. Mood is depressed. Affect is congruent.. Thoughts are linear and logical. No evidence of psychosis. Reviewed daily check in sheet and no reports of suicidal ideations or intent. Client Response/Progress/Benefit: [] Pt participated when prompted. Attentive. Daily symptom tracker notes 08/10 for depression and 07/10 for anxiety. Shared with the group positive news regarding certain legal stressors. ? My burden of stress has decreased a lot?. Shared with the group that today was his last day in [facility] and he is set to discharge successfully. Recapped the struggles he has had with his mental health which has been exacerbated by not being able to ?see my kids? because ? my kids are my life?. Progress noted. Benefited from group support, encouragement, and feedback. Will be discharged successfully from [facility] today. Narrative Note: []
--- NOTE | 2024-05-19 10:30 | BH.MDN_ITS ---
Multi-Disciplinary Note Note 30-min Individual: Time Started:: 10:30 Date: 05/19/24 Purpose of session/treatment goals addressed:: Utilized the session to complete Bipolar Management worksheet and finalize aftercare. Eye Contact:: Good Motor Activity:: Appropriate Appearance:: Disheveled Speech:: Appropriate Mood:: Anxious Affect:: Congruent Thoughts:: Linear, Logical and No evidence of hallucinations/delusions noted Staff Interventions:: psychoeducation on:, discharge planning and other (Completed Bipolar Management plan) Client Response:: Pt shared that all criminal charges against him from the night of the manic episode will be dropped if he completes court-ordered diversion program. He shared that this is a significant weight off his shoulders. Upcoming court date next week regarding his request to modify his [employer] (civil protection order). Hoping to be able to resume visitation with his children. Worked with therapist to finalize Bipolar Management Plan which includes education on shawn/hypomania, individualized warning signs he could be manic, and steps to take if he beleive he is hypomanic/manic. Risks/Concerns:: No risks or concerns noted. Progress Toward Goals/Plan:: Pt will be discharged successfully from [facility] today. Refer to discharge plan for more detailed summary of treatment. Time Stopped:: 11:00
--- NOTE | 2024-05-19 11:10 | BH.SGPN.GN ---
Behaviors/Verbalizations/Mental Status: []Pt alert and oriented, casually dressed and groomed. Eye contact good. Motor activity appropriate. Speech within normal limits. Affect congruent, mood calm. Thoughts linear, logical, no signs of hallucinations or delusions. Client Response/Progress/Benefit: [] Pt responded well to session, taking notes and contributing when prompted. Group discussed the different categories of coping skills which included distraction, emotional release, grounding, self-love, and thought challenging. Pt participated in creating a coping skills ?menu? from the different categories of coping skills. Pt's coping skill menu included: music, journaling, asking himself if he would say this to a friend, and self-forgiveness. Appeared to benefit from increasing repertoire of healthy coping skills. Will discharge from IOP tx today as pt has accomplished his tx goals and no longer meets criteria for IOP level of care. ? Narrative Note: []
--- NOTE | 2024-05-19 13:00 | BH.DS_ITS ---
Discharge Summary Demographics Date of Admission:: 04/12/24 Discharge Date: 05/19/24 Presenting Problems at Admission:: Pt is a 49 year old male with diagnosis of Bipolar disorder type I, most recent episode depressed, severe without psychosis (F31.4), Anxiety disorder, NOS (F41.9), Alcohol use disorder (sober times over 2 months), and Marijuana use disorder (sober x 1-1/2 months). History of 3 previous psychiatric admissions with most recent from 01/16/24-01/26/24 due to dis organized and erratic behaviors (manic episode). According to pt on 01/16/24 his ex- refused to take their kids over to his house for visitation due to concerns for his mental health. Pt admits that he was texting in rhymes to his ex-. Hx of two previous occasions in which pt was markedly psychotic and disorganized in 2012 and 2022. On 01/16/24 police arrived at his house due to concern and after welfare check left. At this point pt walked over to his ex's house where he pounded on the door and demanded to see his children. Police arrived again and pt's bizarre behaviors escalated as he stripped off his clothes in front of the officers and was screaming out to the lord. He was transported to [facility] and later admitted to psych unit. Stigma related to Bipolar diagnosis and after discharge from psych unit he met with outpatient power plant operations manager and the decision was made to stop his mood stabilization medications. Believes that bizarre behaviors where due to OCD. He has since restarted stabilization medications and both his outpatient therapist as well as new power plant operations manager have been working with him on acceptance of Bipolar diagnosis. Due to manic episode in front of his children on 01/16/24 his ex- has filed legal proceedings and pt is currently not permitted to visit with his children. Upon admission to [facility] pt appears to be in a depressive episode. No shawn or delusions noted. Endorses guilt, regret, no pleasure in activities, poor sleep, anhedonia, poor appetite (episodes of binge-eating), low energy, low motivation, decreased concentration, hopelessness, and worthlessness. Denies active suicidal ideations, plan, or intent. No hx of suicide attempts. Endorses frequent passive thoughts of and survival ambivalence. What's the point?. Social anxiety . Occasional panic attacks. Discharge Diagnoses:: 1. Bipolar disorder type I, most recent episode depressed, severe without psychosis (F31.4) 2. Anxiety disorder, NOS (F41.9) 3. Alcohol use disorder (sober times over 2 months) 5. Marijuana use disorder (sober x 1-1/2 months) Reason for Discharge:: Completed treatment plan goals. No longer meets criteria for [facility] level of care and will be discharged successfully Treatment Progress During Treatment & Response: Consistent attendance in [facility]. Pt continues to struggle with situational stressors which include loss of visitation with children. Lesslie today that all criminal charges will be dropped if he completes diversion program, which significantly decreased stress. Despite psychosocial stressors pt has maintained employment (has not worked in 10 years), is medication compliant, and has remained sober. Reviewed most recent outcomes measurements which were completed by patient on 05/19/24. According to most recent scores pt had an overall 20% decrease in symptoms. Scores decreased 13% on the depression domain, 44% on the anxiety domain, and 15% on the repetitive thoughts domain. Also noted an 25% improvement in personality functioning. No change on the shawn domain as pt reported no shawn symptoms at admission and currently (0/8). Denies any suicidal ideations or thoughts of killing self since admission, however passive thoughts and survival ambivalence which began in 01/2024 still occur. Pt and therapist have worked on Bipolar Management plan and he is able to identify negative self-talk statements, and is able to identify 4-5 calming skills . While pt has struggled to implement calming, reframing, and other heal thy skills he is aware of these skills. Pt's non-compliance with medications in the past has resulted in periods of shawn and psychosis which had significantly impacted his relationships, employment, and education. At this moment he has been medication compliant for several months and presents as the most receptive to the Bipolar dx and continued medication compliance than he has been in past IOP admissions Issues Still to be Addressed:: Mood stability, guilt, behavior activation, depression, and healthy coping. Pt has upcoming court appearances related a request to modify the [employer] (civil protection order). Would benefit from continued counseling to help pt through significant psychosocial stressors. Discharge Recommendations/Instructions:: Recommended to continue with outpatient counseling and medication management. Linked with outpatient therapist at [facility] (Mariah Barraza) who is sees weekly. Appointment set up with Psychiatric Nurse Practitioner (Sofie Lucas) in 2 weeks. Pt also voluntarily agreed to continue in [facility] aftercare program which consists of weekly group counseling for 6 weeks. Discharge Handout
== END 2024-05-19 13:38 | disposition home or self-care (01) ==
LOC: BHIOP 08:00
PROVIDERS: PCP Nurse Practitioner Family; Referring Provider Psychiatry & Neurology Psychiatry; Visit Provider Psychiatry & Neurology Psychiatry
DX: F31.4 Bipolar disorder, current episode depressed, severe, without psychotic features (principal); F41.9 Anxiety disorder, unspecified; F10.90 Alcohol use, unspecified, uncomplicated; F12.90 Cannabis use, unspecified, uncomplicated
CPT/HCPCS: S9480; 90832; 90837; 90853

== ENCOUNTER 2024-05-26 14:11 | Outpatient (RCR) | payer MEDICARE, MEDICAID, SELFPAY ==
--- NOTE | 2024-05-26 14:00 | BH.SGPN.GN ---
Behaviors/Verbalizations/Mental Status: []Pt alert and oriented, casually dressed and groomed. Eye contact fair. Motor activity appropriate. Speech within normal limits. Affect constricted, mood depressed. Thoughts linear, logical, no signs of hallucinations or delusions. Client Response/Progress/Benefit: []Client reported he has met with his individual mental health therapist and is taking his medications. client reported he used praying has his healthy coping skill in the last week. client stated he had court today and is hopeful the respiratory scientist will allow him to have visitation with his kids. Client stated did not complete homework from last week. Client attentive to psychoeducation about gratitude and provided contributions throughout. Client created his gratitude plan for the week. Pt to continue IOP to challenge distortions, increase healthy coping skills, and prevent decompensation.
--- NOTE | 2024-05-26 14:15 | BH.COMM ---
Communication Note Communication with Client Communication Note: Patient completed IOP and presents today to start relapse prevention group which meets once weekly (1.5 hours) for 8 weeks. Case discussed with Dr. Correa with plan to admit with dx of F31.4
--- NOTE | 2024-05-26 15:16 | BH.MTP ---
Master Treatment Plan Patient Information Program Physician:: Dr. Luciana Padron Primary Therapist:: Lulú OROPEZA Psychiatric Diagnoses Psychiatric Diagnoses:: 1. Bipolar disorder type I, most recent episode depressed, severe without psychosis (F31.4) 2. Anxiety disorder, NOS (F41.9) 3. Alcohol use disorder 5. Marijuana use disorder Diagnosis Code(s):: F 31.4 Estimated LOS Estimated LOS (in weeks):: 8 Problem/Goal #1 Problem/Goal #1 Stated Goal:: client will maintain or see a reduction in symptoms AEB client score on the DSM 5 cross-cutting measure and improve client's daily functioning. Objectives Objective #1: Stated Objective: Client will continue to consistently apply healthy coping skills to maintain progress made in IOP tx. Interventions: Through group therapy, client will review warning signs and triggers as well as healthy coping skills learned in IOP tx to successfully maintain gains while transitioning into outpatient therapy. Discharge Criteria: Client will have accomplished this goal when client's score on the DSM-5 cross-cutting measure has maintained or reduced over a 8 week period. Target Date: 07/21/24 Review Date: 06/23/24 Status: open Objective #2: Stated Objective: Client will learn and utilize 2-3 maintenance strategies to prevent decompensation from original IOP DSM-5 scores. Interventions: Through group therapy, client will be provided with education on healthy maintenance behaviors, relapse prevention techniques, and healthy coping strategies. Discharge Criteria: Client will have accomplished this goal when can report using at least 2 maintenance skills to prevent decompensation compared to original IOP DSM-5 scores Target Date: 07/21/24 Review Date: 06/23/24 Status: open
== END 2024-06-04 23:59 ==
LOC: BHOG 14:11
PROVIDERS: PCP Nurse Practitioner Family; Referring Provider Psychiatry & Neurology Psychiatry; Visit Provider Psychiatry & Neurology Psychiatry
DX: F31.4 Bipolar disorder, current episode depressed, severe, without psychotic features (principal)
CPT/HCPCS: 90853

== ENCOUNTER 2024-06-06 07:11 | Outpatient (RCR) | payer MEDICARE, MEDICAID, SELFPAY ==
--- NOTE | 2024-06-09 14:00 | BH.SGPN.GN ---
Behaviors/Verbalizations/Mental Status: []Pt alert and oriented, neatly dressed and groomed. Eye contact good. Motor activity appropriate. Speech within normal limits. Affect constricted, mood depressed. Thoughts linear, logical, no signs of hallucinations or delusions. Client Response/Progress/Benefit: [] Pt responded well to session, attentive and providing input. Pt shared he followed up with his therapist, his psych provider, and he has been taking his medications. Pt stated he has been more depressed since he cannot see his children over the holidays. Pt reports using ?not very many coping skills? but he is using a lot of opposite action to cope with stressors. With peers, pt discussed things that would sabotage one's mental health wellness and added it to the garden metaphor. Pt identified things pt personally does to sabotage as isolating and avoiding. Pt attentive during psychoeducation on ways to reduce self-sabotage and pt selected making a list of his accomplishments as the skill pt is going to use. Pt appeared to benefit from learning skills and gaining awareness of self-sabotaging behaviors. Pt will continue IOP aftercare to promote utilization of healthy coping skills to improve mood stability. Narrative Note: []
--- NOTE | 2024-06-16 14:00 | BH.SGPN.GN ---
Behaviors/Verbalizations/Mental Status: []Pt alert and oriented, casually dressed and groomed. Eye contact good. Motor activity appropriate. Speech within normal limits. Affect congruent, mood depressed. Thoughts linear, logical, no signs of hallucinations or delusions. Client Response/Progress/Benefit: []Pt receptive of session, engaged throughout. Pt shared they have met with their outpatient provider since last session and are excited to be working with a new psychiatrist and counselor. Pt has been taking medications consistently and reports not utilizing healthy coping skills outside of aftercare. Self-reports isolating due to difficult news he received last week. Able to identify impacts this has on his overall mental health. ?Receptive of discussion on sitting with the uncomfortable and emotional urges. Pt contributed to the discussion of distress tolerance and how building distress tolerance can help improve mood stability and resilience. Pt wants to keep building distress tolerance by not acting on urges to engage in negative self-talk. Pt seemed to benefit from support from peers and increasing understanding of distress tolerance. Will continue aftercare to reinforce healthy coping skills and improve daily functioning. Narrative Note: []
--- NOTE | 2024-06-30 13:34 | BH.TPR ---
Treatment Plan Review Demographics Date of Admission:: 05/26/24 Date of Treatment Plan Review:: 06/30/24 Admitting Diagnoses:: 1. Bipolar disorder type I, most recent episode depressed, severe without psychosis (F31.4) 2. Anxiety disorder, NOS (F41.9) 3. Alcohol use disorder (sober times over 2 months) 5. Marijuana use disorder (sober x 1-1/2 months) Current Diagnoses:: 1. Bipolar disorder type I, most recent episode depressed, severe without psychosis (F31.4) 2. Anxiety disorder, NOS (F41.9) 3. Alcohol use disorder (sober times over 4 months) 5. Marijuana use disorder (sober x 3 months) Patient Status Patient's Response to Treatment:: Pt continues to respond well to treatment AEB pt's consistent attendance, ongoing attentiveness and engagement in group discussions, and ability to maintain employment. Pt's symptoms are still 20% lower than they were at IOP admission. Status of Current Problems and Symptoms: Pt's depression, grief, and isolation are his biggest stressors/symptoms. Progress Problem #1: Problem Name:: Pt will maintain or see a reduction in sx Status of Goals:: Obj 1 - Complete with maintenance encouraged. Pt's depression decreased by 13% compared to IOP admission and anxiety has decreased by 67% compared to IOP admission. Obj 2 - complete with ongoing work encouraged. Pt had been reporting using opposite action and he has been consistent with going to work which has been helping pt not isolate. Pt does admit to not being consistent with challenging negative thoughts or getting out of the house. Team Recommendations:: Pt is recommended to continuing working on increasing socialization and engagement in hobbies. Pt encouraged to follow up with outpatient counseling and medication management.
--- NOTE | 2024-06-30 14:00 | BH.SGPN.GN ---
Behaviors/Verbalizations/Mental Status: []Client alert and oriented, casually dressed and groomed. Eye contact good. Motor activity appropriate. Speech within normal limits. Affect congruent, mood dysthymic. Thoughts linear, logical, no signs of hallucinations or delusions. Client Response/Progress/Benefit: [] Pt responded well to session AEB sharing and listening attentively to others. Pt reports following up with both therapy and psychiatry and pt reports he is taking his medications consistently. Pt stated using opposite action and getting back into hobbies as primary coping skills used this past week. Pt participated in group discussion defining vulnerability, how and why we avoid it, and the benefits. Pt was an active participant and provided personal examples of being vulnerable and the positive things that came with this. Pt stated that pt would like to work on being vulnerable this week by continuing to engage in his hobbies as depression kept pt from doing this previously. Will continue aftercare treatment to reinforce healthy coping skills and promote gains. Narrative Note: []
== END 2024-07-05 23:59 ==
LOC: BHOG 07:11
PROVIDERS: PCP Nurse Practitioner Family; Referring Provider Psychiatry & Neurology Psychiatry; Visit Provider Psychiatry & Neurology Psychiatry
DX: F31.4 Bipolar disorder, current episode depressed, severe, without psychotic features (principal); F41.9 Anxiety disorder, unspecified; F10.90 Alcohol use, unspecified, uncomplicated; F12.90 Cannabis use, unspecified, uncomplicated
CPT/HCPCS: 90853

== ENCOUNTER 2024-07-07 07:10 | Outpatient (RCR) | payer MEDICARE, MEDICAID, SELFPAY ==
--- NOTE | 2024-07-07 14:00 | BH.SGPN.GN ---
Behaviors/Verbalizations/Mental Status: []Pt alert and oriented, casually dressed and groomed. Eye contact fair. Motor activity appropriate. Speech within normal limits. Affect constricted, mood depressed. Thoughts linear, logical, no signs of hallucinations or delusions. Client Response/Progress/Benefit: []Pt receptive of session, engaged throughout. Pt has been consistent with taking his medications and seeing his therapist. Pt reported he has been struggling throughout the last week with not using skills. Pt reported the last couple of days he has started to use a to-do list which seems to be helping. Receptive of discussion on ?Chapters of my life? poem. Pt contributed to the discussion of the different chapters one may go through and how they connect with current mental health progress. Pt completed self-reflection on what chapter he believes he is in. Pt seemed to benefit from support from peers and increasing understanding of ?Chapters of my life?. Will continue IOP aftercare to increase consistent use of healthy coping skills and prevent decompensation.
--- NOTE | 2024-07-21 15:13 | BH.DS_ITS ---
Discharge Summary Demographics Date of Admission:: 05/26/24 Discharge Date: 07/21/24 Presenting Problems at Admission:: Recent manic episode led to criminal legal charges as well as loss of visitation for his children which led to pt's admission to [facility]. Pt admitted to aftercare to promote mood stability and further reduce isolation. Discharge Diagnoses:: 1. Bipolar disorder type I, most recent episode depressed, severe without psychosis (F31.4) 2. Anxiety disorder, NOS (F41.9) 3. Alcohol use disorder 5. Marijuana use disorder Reason for Discharge:: Pt has accomplished tx goals AEB ability to maintain mood stability and gains made in IOP. Pt's DSM-5 scores remain 27% lower than his IOP admission scores. Pt will transition to traditional outpatient counseling. Treatment Progress During Treatment & Response: Pt responded well and made progress in [facility] aftercare as evidenced by pt's participation in group discussions and self- report of consistently applying coping skills. Pt's overall DSM-5 scores decreased by 27% from IOP admission. Pt?s depression decreased by 25% since original IOP admission and pt's scores for anxiety decreased by 67% compared to original IOP scores. Issues Still to be Addressed:: Managing his bipolar disorder, grief and loss of custody, and limited social support. Discharge Recommendations/Instructions:: Recommended to continue with outpatient counseling and medication management. Linked with outpatient therapist at [facility] (Mariah Barraza) who pt sees weekly. Pt also connected with Larissa Lucas. Discharge Handout
== END 2024-07-29 06:42 | disposition home or self-care (01) ==
LOC: BHOG 07:10
PROVIDERS: PCP Nurse Practitioner Family; Referring Provider Psychiatry & Neurology Psychiatry; Visit Provider Psychiatry & Neurology Psychiatry
DX: F31.4 Bipolar disorder, current episode depressed, severe, without psychotic features (principal); F41.9 Anxiety disorder, unspecified; F10.90 Alcohol use, unspecified, uncomplicated; F12.90 Cannabis use, unspecified, uncomplicated
CPT/HCPCS: 90853